=== PATIENT | female | born 1975 | race Caucasian/White ===

== ENCOUNTER 2016-07-10 11:04 | Inpatient (IN) | payer OTHER ==
[~2016-07-10] VITALS: Ht 158.8 cm; Wt 68.0 kg
[~2016-07-10 11:04] MED LIST: ALPRAZOLAM0.5 M4 PO; CIPROFLOXACIN500 M2 PO; ESCITALOPRAM OX10 MG PO; HYDROMORPHONE HC2 M1 PO; HYDROMORPHONE HC4 M1 PO; HYDROXYZINE HCL25 M2 PO; LEVAQUIN500 MG PO; LIDODERM1 EACH TOP; PHENAZOPYRIDIN200 M3 PO; PHENERGAN25 MG PO; PROMETHAZINE HC25 M3 PO; PROMETHAZINE25 M1 PO; SUBOXONE 2 MG-1 EACH SL; ZOFRAN ODT4 M1 SL
--- NOTE | 2016-07-10 11:34 | ED GI/GU/ABDOMINAL COMPLAINT ---
History of Present Illness General Chief Complaint: Abdominal Pain/Flank Pain Stated Complaint: RT FLANK PAIN Source: patient Exam Limitations: no limitations Allergies Coded Allergies: tramadol (From ULTRAM) (Severe, HIVES, SOB 07/07/16) vancomycin (From VANCOCIN) (Severe, SOB, FACIAL SWELLING 07/07/16) Iodinated Contrast Media - Oral and (Intermediate, HIVES WITH OR WITHOUT PREMEDICATION - CAN NOT TAKE PERIOD 07/10/16) Sulfa (Sulfonamide Antibiotics) (Intermediate, HIVES 07/07/16) morphine (Intermediate, HIVES, RASH 07/07/16) adhesive (RASH 07/10/16) oxycodone (RASH, SOB 07/10/16) Reconcile Medications Alprazolam 0.5 MG TABLET 1 TAB PO TIDPRN PRN ANXIETY (Reported) Buprenorphine HCl/Naloxone HCl (Suboxone 2 MG-0.5 MG Sl Film) 2 MG-0.5 MG FILM 1 STR SL 4 TIMES/DAY PRN CHRONIC PAIN (Reported) Diphenhydramine HCl (Benadryl) 25 MG CAPSULE 1 CAP PO PRN NASUEA/ITCHING ( Reported) Escitalopram Oxalate 10 MG TABLET 1 TAB PO QPM MENTAL HEALTH (Reported) Hydromorphone HCl 4 MG TABLET 1 TAB PO Q6-PRN PRN PAIN (Reported) Hydromorphone HCl 2 MG TABLET 1 TAB PO Q6-PRN PRN PAIN (Reported) Hydroxyzine HCl 25 MG TABLET 1 TAB PO TID PRN ITCHING (Reported) Infliximab (Remicade) (Unknown Strength) VIAL (Unknown Dose) IV Q6W CROHNS ( Reported) Lidocaine (Lidoderm) 5 % ADH..PATCH 1 PAT TOP DAILY PAIN (Reported) may wear up to 12 hours Mesalamine (Canasa) 1,000 MG SUPP.RECT 1 SUP RC PRN RECTAL (Reported) Multivitamin (Daily Value) 1 EACH TABLET 1 TAB PO DAILY SUPPLEMENT (Reported) Ondansetron (Zofran Odt) 4 MG TAB.RAPDIS 1 TAB SL TID nausea Phenazopyridine HCl 200 MG TABLET 1 TAB PO TID URINE (Reported) after food Promethazine HCl 25 MG TABLET 1 TAB PO Q6P PRN NAUSEA/VOMITING (Reported) Triage Note: 41 Y/O FEMALE C/O CONTINUED R FLANK PAIN, ONSET LAST WEEK. STATES SHE WAS EVAL'D IN ED 2 DAYS AGO AND TREATED FOR PRESUMED KIDNEY INFECTION - "THEY DIDNT SEE ANYTHING ON THE CT SCAN BUT IM ON CIPRO AND PYRIDIUM". PT REPORTS CONTINUED N/V AND INTERMITTENT FEVERS. DENIES HEMATURIA. AFEBRILE. Triage Nurses Notes Reviewed? yes ? N Is pt currently ? No HPI: THIS PATIENT IS A 41-YEAR-OLD FEMALE WITH A PAST MEDICAL HISTORY INCLUDING cROHN 'S DISEASE, psoas muscle abscess, recurrent UTIs, kidney infection who is status post hysterectomy and lysis of adhesions for endometriosis who presented to the emergency department today for evaluation of continued right lower back pain. The patient reported that approximately one week ago she was started on ciprofloxacin and Pyridium by her primary care physician for presumed urinary tract infection. The patient was experiencing difficulty emptying her bladder and urinary frequency. The patient reported that she has also been experiencing right sided lower back/flank pain which is nonradiating and she rates it a 6 out of 10. The pain is constant and worse with certain movements. The patient is on Remicade with a port for her Crohn's disease. The patient reported that she does get left lower quadrant pain when her Crohn's disease flares up. She reported that last night she started to experience left lower quadrant pain, but reported that this feels different. The pain is nonradiating and constant. The patient has been vomiting, "many times a day." She did report some blood in the vomitus, but reported that she has been scoped many times for this by her doctor and has been told that it is likely from irritation. The patient reported that her vomiting and nausea is worse with eating. She reported fevers as high as 103F and chills. The patient reported that she has been having diarrhea. She reported that 2 nights ago she had a bowel movement in her sleep without knowing it. She also reported that she has been having to wear pads due to urinary incontinence. The patient denied any chest pain, difficulty breathing. She denies any saddle paresthesia. She reported that her technology recruiter reviewed the prior CTs and that was done here in the emergency department and told her that it does not look like a flare of her Crohn's disease. There were no kidney stones seen on prior scan of the abdomen and pelvis. (CHONG JARRETT,CHE) Vital Signs & Intake/Output Vital Signs & Intake/Output Vital Signs Date Time Temp Pulse Resp B/P Pulse O2 O2 Flow FiO2 Ox Delivery Rate 07/11 0826 99.3 85 20 107/61 96 Room Air 07/11 0008 98.7 83 20 108/78 97 07/10 1609 99.8 112 20 127/78 95 Room Air 07/10 1409 98.9 07/10 1333 98.6 85 18 136/85 98 Room Air ED Intake and Output 07/11 0000 07/10 1200 Intake Total 340 Output Total 300 Balance 40 Intake, IV 100 Intake, Oral 240 Output, Urine 300 Patient 150 lb 150 lb Weight Past History Travel History Traveled to [place] past 21 day No Medical History Any Pertinent Medical History? see below for history Neurological: NONE EENT: NONE Cardiovascular: NONE Respiratory: asthma Gastrointestinal: Crohn's disease Hepatic: NONE Renal: hematuria x many years, uncertain etiology Musculoskeletal: NONE Psychiatric: NONE Endocrine: DM WHILE ON STREOIDS Blood Disorders: NONE Cancer(s): NONE DESK ASSISTANT/Reproductive: endometriosis, fibroid Surgical History Surgical History: 2 laparotomies due to crohn's PARTIAL HYSTERECTOMY Psychosocial History Who do you live with Family Services at Home None What is your primary language Grenadian Tobacco Use: Never used Family History Hx Contributory? No (CHE SCHWARZ PA-C) Review of Systems Review of Systems Constitutional: Reports: see HPI. EENTM: Reports: no symptoms. Respiratory: Reports: no symptoms. Cardiovascular: Reports: no symptoms. GI: Reports: see HPI. Genitourinary: Reports: see HPI. Musculoskeletal: Reports: see HPI. Skin: Reports: no symptoms. Neurological/Psychological: Reports: no symptoms. All Other Systems: Reviewed and Negative (CHE SCHWARZ PA-C) Physical Exam Physical Exam Gastrointestinal: normal bowel sounds, soft, no organomegaly, diffuse tenderness to palpation over the abdomen. No rebound or guarding. No McBurney's point tenderness. Negative Rovsing sign. Nondistended Comments: Well-developed well-nourished person in no acute distress HEENT: Normal EENT exam, head normocephalic, moist mucous membranes Pupils equally round and reactive to light. Neck: Supple. No lymphadenopathy Back: Normal gait. Positive right-sided CVA tenderness. Positive midline tenderness over the lumbar spine Cardiovascular: Tachycardic with a regular rhythm and no murmurs, rubs, or gallops Respiratory: Chest nontender. No respiratory distress. Breath sounds clear to auscultation bilaterally with no wheezes, rales or rhonchi Extremity: Normal and equal pulses Neuro: Alert oriented x3, cranial nerves II through XII grossly intact. Skin: No appreciable rash on exposed skin, skin is warm and dry. Psych: Mood and affect is normal Core Measures ACS in differential dx? No Severe Sepsis Present: No Septic Shock Present: No (CHONG JARRETT,CHE) Progress Differential Diagnosis: AMI, appendicitis, biliary colic, bowel obstruction, colon cancer, cholecystitis, diverticulitis, ectopic , endometritis, gastritis, hepatitis, ischemic bowel, inflamm bowel dis, intrauterine , kidney stone, ovarian cyst, ovarian torsion, PID/cervicitis, PUD/GERD, perforated viscous, threatened AB, UTI/pyelo Diagnostic Imaging: Viewed by Me: CT Scan. Discussed w/RAD: CT Scan. Radiology Impression: PATIENT: FRANCIA FLOWERS PRESENT AGE: 41 PATIENT ACCOUNT NO: [id number] : 77 LOCATION: [facility] ORDERING PHYSICIAN: CHE SCHWARZ PA-C SERVICE DATE: 07/10/16 EXAM TYPE: CAT - CT LUMB SPINE WO IV CONTRAST EXAMINATION: CT LUMBAR SPINE WITHOUT CONTRAST CLINICAL INFORMATION: Bowel and bladder incontinence. Assess for cauda equina. COMPARISON: CT scan of the abdomen and pelvis 07/07/2016. TECHNIQUE: Helical non -contrast CT images were obtained through the lumbar spine and 1.25 and 2.5 mm axial reconstructions were reviewed along with sagittal and coronal MPRs. DLP: 402.36 mGy-cm. FINDINGS: There is anatomic alignment of the vertebral bodies. There is loss of intervertebral disc height at the level of L5-S1. The vertebral bodies have normal height and contour and there are no compression fractures. Bone mineralization appears normal. There are degenerative changes at the sacroiliac joints. There are postoperative changes in the right lower abdomen. SPINAL LEVELS: T12-L1: The disc configuration is normal. The central canal and neural foramina are widely patent. The facet joints are normal. L1-L2: The disc configuration is normal. The central canal and neural foramina are widely patent. The facet joints are normal. L2-L3: The disc configuration is normal. The central canal and neural foramina are widely patent. The facet joints are normal. L3-L4: The disc configuration is normal. The central canal and neural foramina are widely patent. The facet joints are normal. L4-L5: There is mild facet arthropathy bilaterally. There is a broad-based posterior disc protrusion, extending into the inferior neural foramina bilaterally. There is no central stenosis. L5-S1: There is mild bilateral facet arthropathy. There is a central and left paracentral disc protrusion which compresses the thecal sac. There is impingement on the traversing S1 nerve roots bilaterally. There is no central stenosis. The neural foramina are patent. IMPRESSION: 1. There is a central and left paracentral disc protrusion compressing the thecal sac at L5-S1. There is impingement on the traversing S1 nerve roots bilaterally. 2. There is a broad- based posterior disc protrusion at L4-L5 extending into the inferior neural foramina bilaterally. There is no central stenosis. DICTATED BY: ANKIT MEJIA MD DATE/TIME DICTATED:07/10/161248 SEARCH STRATEGIST:ABELARDO DATE/TIME TRANSCRIBED:07/10/161248 CONFIDENTIAL, DO NOT COPY WITHOUT APPROPRIATE AUTHORIZATION. <Electronically signed in Other Vendor System> SIGNED BY: ANKIT MEIJA MD 07/10/16 1316 Initial ED EKG: none Comments: 07/10/2016 1:27:45 PM: I was at the patient's bedside for reevaluation. She reported that the Dilaudid and Phenergan were helping, however when she went to the CT scanner, the pain got really exacerbated. Will try Zofran with 1 mg IV of Dilaudid. (CHONG JARRETT,CHE) Plan of Care: Orders Procedure Date/time Status Regular Diet 07/11 D Active Regular Diet 07/11 B Complete CBC WITHOUT DIFFERENTIAL 07/11 06 Complete BASIC ELECTROLYTES PLUS BUN&CR 07/11 06 Complete Pain Treatment and Response 07/11 0440 Active PT Evaluate & Treat 07/11 UNK Active Regular Diet 07/10 D Complete Vital Signs 07/10 1809 Active Teach/Educate 07/10 1809 Active Nutritional Intake, Monitor 07/10 1809 Active Isolation 07/10 1809 Active Intake & Output 07/10 1809 Active Patient Care Conference 07/10 1809 Active Activity/Ambulation 07/10 1809 Active Pathway - chart 07/10 162 Active Pathway - chart 07/10 1620 Active House Staff 07/10 1620 Active Patient Data 07/10 1620 Active Code Status 07/10 1620 Active OXYGEN SETUP (GEN) 07/10 1451 Active Saline Lock 07/10 1451 Active Admit to inpatient 07/10 1451 Active Vital Signs 07/10 1451 Active Activity/Ambulation 07/10 1451 Active Code Status 07/10 1451 Complete Patient Data 07/10 1428 Active CULTURE,URINE 07/10 1337 Active Lab Add-on Test 07/10 UNK Active VTE Mechanical Prophylaxis 07/10 UNK Active PHYSICIAN CONSULT 07/10 UNK Active Current Medications Sig/Elise Start time Last Medication Dose Stop Time Status Admin Buprenorphine/ 1 TAB Q6 PRN 07/10 1730 AC Naloxone (Suboxone) Acetaminophen 650 MG Q6P PRN 07/10 1630 AC (Tylenol) Laboratory Tests 07/11/16 0520: Anion Gap 9, Estimated GFR > 60, BUN/Creatinine Ratio 12.5, CBC w Diff NO MAN DIFF REQ, RBC 3.39 L, MCV 91.6, MCH 31.0, RDW 13.0, MPV 8.7, Gran % 56.0, Lymphocytes % 29.4, Monocytes % 9.8 H, Eosinophils % 4.1, Basophils % 0.7, Absolute Granulocytes 5.6, Absolute Lymphocytes 2.9, Absolute Monocytes 1.0 H, Absolute Eosinophils 0.4, Absolute Basophils 0.1, PUBS MCHC 33.9 07/10/16 1337: Urine Color YEL, Urine Clarity CLEAR, Urine pH 7.5, Ur Specific [place] 1.010, Urine Protein NEG, Urine Ketones NEG, Urine Nitrite NEG, Urine Bilirubin NEG, Urine Urobilinogen 0.2, Ur Leukocyte Esterase NEG, Ur Microscopic SEDIMENT EXAMINED, Urine RBC RARE, Ur Epithelial Cells FEW, Urine Hemoglobin SMALL H, Urine Glucose NEG, Urine Test NEGATIVE Microbiology 07/10 133 URINE ROUT: Urine Culture - RES Departure Departure Disposition: STILL A PATIENT Condition: Stable Clinical Impression Primary Impression: Intractable abdominal pain Secondary Impressions: Diarrhea Qualifiers: Diarrhea type: presumed infectious Qualified Code: A09 - Infectious gastroenteritis and colitis, unspecified Intermittent fever Referrals: JULIOCESAR VASQUEZ APRN (PCP/Family) Referred to [facility] as new patient No Departure Forms: Customer Survey General Discharge Information Admission Note Spoke With: LEAH MCDONOUGH MD Documentation of Exam: Documentation of any treatments & extenuating circumstances including Concerns Regarding Discharge (functional status, medication knowledge or non-compliance, living conditions, etc.) that warrant an admission rather than observation: [ This patient is a 41-year-old female with a history of Crohn's disease, psoas muscle access, colectomy, C. difficile, and kidney infection who presented to the emergency department today for evaluation of intractable right flank pain and left lower quadrant pain. This patient has been intermittently febrile at home up to 103F. Perfuse diarrhea and vomiting. This patient will need to be admitted to the emergency department for trend labs, IV fluids, pain management, gastroenterology consult, possible colonoscopy, possible barium enema, follow-up stool cultures, and follow-up blood cultures. Based on this patient's extensive past medical history and clinical presentation, she is a poor candidate for outpatient treatment. Premature discharge could prove medically harmful.] (CHONG JARRETT,CHE) PA/DUSTLESS OPERATOR Co-Sign Statement Statement: ED Attending supervision documentation- x I saw and evaluated the patient. I have also reviewed all the pertinent lab results and diagnostic results. I agree with the findings and the plan of care as documented in the PA's/DUSTLESS OPERATOR's documentation. [] I have reviewed the ED Record and agree with the PA's/DUSTLESS OPERATOR's documentation. [] Additions or exceptions (if any) to the PAs/DUSTLESS OPERATOR's note and plan are summarized below: [] (EMILY BEEBE,EM)
[2016-07-10 12:06] LABS: ABSOLUTE BASOPHIL COUNT 0 /CUMM (0.0-0.2); ABSOLUTE EOSINOPHIL COUNT 0.3 /CUMM (0.0-0.7); ABSOLUTE GRANULOCYTE CT 6.1 /CUMM (1.4-6.5); ABSOLUTE LYMPH COUNT 1.9 /CUMM (1.2-3.4); ABSOLUTE MONOCYTE COUNT 0.8 /CUMM (0.10-0.60); BASOPHIL % 0.4 % (0.0-2.0); EOSINOPHIL % 2.8 % (0-5); GRANULOCYTE % 66.7 % (42.2-75.2); HEMATOCRIT 32.9 % (37-47); MEAN CORPUSCULAR HGB CONC 34.6 G/DL (33.0-37.0); MEAN CORPUSCULAR VOLUME 89.7 FL (81.0-99.0); MEAN PLATELET VOLUME 8.8 FL (7.4-10.4); PLATELET COUNT 267 /CUMM (130-400); RED BLOOD CELL CT 3.67 /CUMM (4.20-5.40); WHITE BLOOD CELL COUNT 9.1 /CUMM (4.8-10.8)
--- NOTE | 2016-07-10 13:16 | CT SCAN REPORT ---
EXAMINATION: CT LUMBAR SPINE WITHOUT CONTRAST CLINICAL INFORMATION: Bowel and bladder incontinence. Assess for cauda equina. COMPARISON: CT scan of the abdomen and pelvis 07/07/2016. TECHNIQUE: Helical non-contrast CT images were obtained through the lumbar spine and 1.25 and 2.5 mm axial reconstructions were reviewed along with sagittal and coronal MPRs. DLP: 402.36 mGy-cm. FINDINGS: There is anatomic alignment of the vertebral bodies. There is loss of intervertebral disc height at the level of L5-S1. The vertebral bodies have normal height and contour and there are no compression fractures. Bone mineralization appears normal. There are degenerative changes at the sacroiliac joints. There are postoperative changes in the right lower abdomen. SPINAL LEVELS: T12-L1: The disc configuration is normal. The central canal and neural foramina are widely patent. The facet joints are normal. L1-L2: The disc configuration is normal. The central canal and neural foramina are widely patent. The facet joints are normal. L2-L3: The disc configuration is normal. The central canal and neural foramina are widely patent. The facet joints are normal. L3-L4: The disc configuration is normal. The central canal and neural foramina are widely patent. The facet joints are normal. L4-L5: There is mild facet arthropathy bilaterally. There is a broad-based posterior disc protrusion, extending into the inferior neural foramina bilaterally. There is no central stenosis. L5-S1: There is mild bilateral facet arthropathy. There is a central and left paracentral disc protrusion which compresses the thecal sac. There is impingement on the traversing S1 nerve roots bilaterally. There is no central stenosis. The neural foramina are patent. IMPRESSION: 1. There is a central and left paracentral disc protrusion compressing the thecal sac at L5-S1. There is impingement on the traversing S1 nerve roots bilaterally. 2. There is a broad-based posterior disc protrusion at L4-L5 extending into the inferior neural foramina bilaterally. There is no central stenosis.
[2016-07-10] MEDS ORDERED: BENADRYL25 MG PO (16:09)
[2016-07-10] MEDS ORDERED: CANASA1000 M1 RC (16:22)
[2016-07-10] MEDS ORDERED: REMICADE100 MG IV (16:22)
[2016-07-10] MEDS ORDERED: DAILY VALUE1 EACH PO (16:23)
--- NOTE | 2016-07-10 16:52 | History & Physical ---
EMILY BEEBE,[facility] 07/10/16 3765: General Information and HPI MD Statement: I have seen and personally examined FRANCIA FLOWERS and documented this H&P. The patient is a 41 year old F who presented with a patient stated chief complaint of right lower back pain. Source of Information: patient Exam Limitations: no limitations History of Present Illness: This is a 41-year-old female with past medical history of Crohn's disease( multiple flares currently on Remicade infusions every 6 weeks, last one was in June 18) with 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 Patient reported that she has history of recurrent UTIs, around Thanksgiving she was having some urinary frequency and burning for which her PCP started her on nitrofurantoin for 3 days after which gave her some relief of her symptoms but was soon followed by worsening of urinary burning, frequency along with right sided back/flank pain, nausea, vomiting and fever, for which she was seen by her PCP last week, urinalysis as per patient was positive for UTI with cultures were negative, she was was prescribed pyridium and ciprofloxacin which she completed a seven-day course without significant improvement in her symptoms, today are back/flank pain nausea and vomiting and fever(MAXIMUM TEMPERATURE of 103 along with chills) worsened to the point that she has to come to the ER for further evaluation. She also reports history of diarrhea for the past 2 days, watery, started 2 days before when she woke up finding herself soaked in diarrhea, ever since she had She has baseline incontinence for which sometimes she has to use pads but recently has noticed that she was not able to urinate. 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 She follows Alberto vasquez APRN as his primary care. She does not smoke, abuse alcohol abuse, denies any drug abuse. She is on disability, lives with her mom, able to do her daily chores without difficulty. Allergies/Medications Allergies: Coded Allergies: tramadol (From ULTRAM) (Severe, HIVES, SOB 07/07/16) vancomycin (From VANCOCIN) (Severe, SOB, FACIAL SWELLING 07/07/16) Iodinated Contrast Media - Oral and (Intermediate, HIVES WITH OR WITHOUT PREMEDICATION - CAN NOT TAKE PERIOD 07/10/16) Sulfa (Sulfonamide Antibiotics) (Intermediate, HIVES 07/07/16) morphine (Intermediate, HIVES, RASH 07/07/16) adhesive (RASH 07/10/16) oxycodone (RASH, SOB 07/10/16) Home Med list Alprazolam 0.5 MG TABLET 1 TAB PO TIDPRN PRN ANXIETY (Reported) Buprenorphine HCl/Naloxone HCl (Suboxone 2 MG-0.5 MG Sl Film) 2 MG-0.5 MG FILM 1 STR SL 4 TIMES/DAY PRN CHRONIC PAIN (Reported) Diphenhydramine HCl (Benadryl) 25 MG CAPSULE 1 CAP PO PRN NASUEA/ITCHING ( Reported) Escitalopram Oxalate 10 MG TABLET 1 TAB PO QPM MENTAL HEALTH (Reported) Hydromorphone HCl 4 MG TABLET 1 TAB PO Q6-PRN PRN PAIN (Reported) Hydromorphone HCl 2 MG TABLET 1 TAB PO Q6-PRN PRN PAIN (Reported) Hydroxyzine HCl 25 MG TABLET 1 TAB PO TID PRN ITCHING (Reported) Infliximab (Remicade) (Unknown Strength) VIAL (Unknown Dose) IV Q6W CROHNS ( Reported) Lidocaine (Lidoderm) 5 % ADH..PATCH 1 PAT TOP DAILY PAIN (Reported) may wear up to 12 hours Mesalamine (Canasa) 1,000 MG SUPP.RECT 1 SUP RC PRN RECTAL (Reported) Multivitamin (Daily Value) 1 EACH TABLET 1 TAB PO DAILY SUPPLEMENT (Reported) Ondansetron (Zofran Odt) 4 MG TAB.RAPDIS 1 TAB SL TID nausea Phenazopyridine HCl 200 MG TABLET 1 TAB PO TID URINE (Reported) after food Promethazine HCl 25 MG TABLET 1 TAB PO Q6P PRN NAUSEA/VOMITING (Reported) Compliance With Home Meds: GOOD Past History Travel History Traveled to [place] past 21 day No Medical History Neurological: NONE EENT: NONE Cardiovascular: NONE Respiratory: asthma Gastrointestinal: Crohn's disease Hepatic: NONE Renal: hematuria x many years, uncertain etiology Musculoskeletal: NONE Psychiatric: NONE Endocrine: DM WHILE ON STREOIDS Blood Disorders: NONE Cancer(s): NONE 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 Home Who Do You Live With? parent Services at Home: None Primary Language: South African Smoking Status: Never Smoked ETOH Use: occasional use Illicit Drug Use: denies illicit drug use Functional Ability ADLs Independent: dressing, eating, toileting, bathing. Ambulation: independent IADLs Independent: shopping, housework, finances, food prep, telephone, transportation , medication admin. Review of Systems Review of Systems Constitutional: Reports: see HPI. Exam & Diagnostic Data Last 24 Hrs of Vital Signs/I&O Vital Signs Date Time Temp Pulse Resp B/P Pulse O2 O2 Flow FiO2 Ox Delivery Rate 07/10 1609 99.8 112 20 127/78 95 Room Air 07/10 1409 98.9 07/10 1333 98.6 85 18 136/85 98 Room Air 07/10 1117 98.2 107 18 141/97 97 Room Air Intake & Output 07/10 1600 07/10 0800 07/10 0000 Intake Total Output Total Balance Patient 68.039 kg Weight Physical Exam General Appearance Alert, Oriented X3, Cooperative, Mild Distress Cardiovascular Regular Rate, Normal S1, Normal S2, No Murmurs Lungs Clear to Auscultation, Normal Air Movement Abdomen Normal Bowel Sounds, Soft, TENDERNESS ESPECIALLY IN THE RIGHT LOWER QQUADRANT Extremities No Clubbing, No Cyanosis, No Edema Last 24 Hrs of Labs/Junaid: Laboratory Tests 07/10/16 1337: Urine Color YEL, Urine Clarity CLEAR, Urine pH 7.5, Ur Specific Ettrick 1.010, Urine Protein NEG, Urine Ketones NEG, Urine Nitrite NEG, Urine Bilirubin NEG, Urine Urobilinogen 0.2, Ur Leukocyte Esterase NEG, Ur Microscopic SEDIMENT EXAMINED, Urine RBC RARE, Ur Epithelial Cells FEW, Urine Hemoglobin SMALL H, Urine Glucose NEG, Urine Test NEGATIVE 07/10/16 1200: Anion Gap 11, Estimated GFR > 60, BUN/Creatinine Ratio 15.0, Glucose 101 H, Lactic Acid 1.6, Calcium 9.2, Total Bilirubin 1.0, AST 18, ALT 18, Alkaline Phosphatase 67, Total Protein 7.7, Albumin 4.0, Globulin 3.7, Albumin/Globulin Ratio 1.1, Amylase 44, Lipase 123, CBC w Diff NO MAN DIFF REQ, RBC 3.67 L, MCV 89.7, MCH 31.0, RDW 13.0, MPV 8.8, Gran % 66.7, Lymphocytes % 21.4, Monocytes % 8.7, Eosinophils % 2.8, Basophils % 0.4, Absolute Granulocytes 6.1, Absolute Lymphocytes 1.9, Absolute Monocytes 0.8 H, Absolute Eosinophils 0.3, Absolute Basophils 0, PUBS MCHC 34.6 Microbiology 07/10 1337 URINE ROUT: Urine Culture - RECD 07/10 1209 STOOL: Clostridium difficile Toxin A & B - ORD 07/10 1209 STOOL: Stool Culture - ORD Assessment/Plan Assessment: This is a 41-year-old female with past medical history of Crohn's disease( multiple flares currently on Remicade infusions every 6 weeks, last one was in June 18) , recurrent UTIs, endometriosis complicated by additions for which she underwent adhesion lysis and hysterectomy. Her vital signs on admission were temperature 98.2, pulse 107, respiratory rate 18, blood pressure 141/97, pulse ox 97 on room air. Admission labs were WBC count 9.1, hemoglobin 11.4, hematocrit 32.9, platelet count 267, sodium 138, potassium 4.3, BUN 12, creatinine 0.8, normal LFTs, amylase and lipase. CT lumbar spine showed central and left paracentral disc protrusion compressing the thecal sac at L5 and S1 and impingement on the traversing S1 nerve roots bilaterally. Will admit the patient and monitor for the following conditions: Right sided abdomen/back pain: Etiology at the moment unclear, likely due to underlying Crohn's disease versus C. difficile colitis(patient has history of recent recurrent antibiotic use) versus nephrolithiasis, cystitis, versus chronic pain syndrome C. difficile toxin/stool culture GI consultation please will follow-up recommendations Pain management with Dilaudid and Suboxone IV Phenergan for nausea and vomiting as needed Back pain : CT scan showed evidence of central and left paracentral disc protrusion compressing the thecal sac at L5 and S1 and impingement on the traversing S1 nerve roots bilaterally. Orthopedic consultation please will follow recommendations Will continue regular diet DVT prophylaxis with Lovenox Patient is full code As Ranked By This Provider Problem List: 1. Intermittent fever 2. Intractable abdominal pain 3. Nausea & vomiting 4. Back pain Core Measures/Miscellaneous Acute Coronary Syndrome ACS Diagnosis: No Cerebrovascular Accident CVA/TIA Diagnosis: No Congestive Heart Failure CHF Diagnosis: No Venous Thromboembolism VTE Risk Factors: Acute medical illness, Age > 40 VTE Prophylaxis Ordered Inpt: Pharm- Lovenox No Mech VTE prophylaxis d/t: No contraindications No VTE Pharm Prophylaxis d/t: No contraindications VTE Diagnosis: No VTE Type: NONE VTE Confirmed by (Test): NONE Severe Sepsis Severe Sepsis Present: No Septic Shock Septic Shock Present: No Miscellaneous Documentation Attending Case Discussed With: LEAH MCDONOUGH MD Primary Care Physician: JULIOCESAR VASQUEZ APRN Patient sees these Specialists . Level of Patient Care: General Medicine JODY DECKER 07/10/16 1754: Resident Review Statement Resident Statement: examined this patient, discussed with internet manager, agreed with internet manager Other Findings: Patient is 41 years old female with complicated past medical history significant for Crohn's disease currently on Remicade infusion every 6 weeks last was on June 18, history of soreness abscess, history of recurrent UTIs, history of kidney stones status post stent placement and lithotripsy, history of endometriosis status post hysterectomy and multiple fistulas status post adhesion lysis, arthritis and recent UTI treated with ciprofloxacin came to emergency room with chief complaint of right-sided lower abdomen and back.. She also admits for having diarrhea for a few days and bowel incontinence ones and urinary retention recently. She is following director financial services in [place]. She gave history of fever the last few days with MAXIMUM TEMPERATURE of 103 and she spiked 101 this morning at home. She denied cough, headache, chest pain but admits for having nausea, vomiting, diarrhea and recent urinary incontinence/retention. She visited ER on July 07 with right-sided flank pain where her CT abdomen was done and was sent home to continue on her oral antibiotics by her PCP. Her vital signs on admission were temperature 98.2, pulse 107, respiratory rate 18, blood pressure 141/97, pulse ox 97 on room air. Admission labs were WBC count 9.1, hemoglobin 11.4, hematocrit 32.9, platelet count 267, sodium 138, potassium 4.3, BUN 12, creatinine 0.8, normal LFTs, amylase and lipase. CT lumbar spine showed central and left paracentral disc protrusion compressing the thecal sac at L5 and S1 and impingement on the traversing S1 nerve roots bilaterally. On physical examination She is alert and oriented 3 Head atraumatic Neck supple Chest clear to auscultate having intact Edmond catheter Heart S1-S2 audible with no added sounds Abdomen generalized tenderness with normal bowel sounds no organomegaly Costovertebral angle tenderness positive but no tenderness on lumbar or sacral vertebrae region. No restricted joint movement on hip or knees No edema or cyanosis on extremities No saddle anesthesia Assessment and plan 41 years old female with a very complicated past medical and surgical history with recent UTI treated with Cipro currently came with right-sided abdominal and back pain with loose stool concerning for C. difficile. CAT scan findings for central left paracentral disc protrusion compressing thecal sac at L5 and S1 were concerning but cauda equina syndrome was ruled out. We will admit patient on general medical floor and will take care for the following problems Problem #1 right lower abdomen and back pain could be due to underlying Crohn's/ chronic pain syndrome/C. difficile colitis/nephrolithiasis Vital signs every shift GI consultation We'll continue her home medications for pain IV Phenergan for nausea and vomiting as needed We'll send stool cultures and C. difficile Problem #2 recent diarrhea could be viral versus C. difficile with history of antibiotic use recently Will follow C. difficile culture Problem #3 disc protrusion compressing L5-S1 Will request orthopedic consultation Continue her home pain medications Problem #4 history of chronic pain Will continue her home medications Regular diet Pharmacological DVT prophylaxis Patient is full code GINGER HONG MD 07/10/16 2310: Attending MD Review Statement Attending Statement Attending MD Statement: examined this patient, discuss w/resident/PA/SEASONAL TAX PREPARER, agreed w/resident/PA/SEASONAL TAX PREPARER, reviewed EMR data (avail), discussed with nursing, amended to note Attending Assessment/Plan: Patient seen and examined. Extensive past medical history noted. She reports back pain radiating to the abdomen going on for the past 2 weeks. She reports recent outpatient antibiotic therapy by her primary care physician for abnormal UA with negative urine cultures. As symptoms persisted she came to the emergency room 2 days ago where she had a CT abdomen done that showed nonspecific mesenteric inflammation. She was discharged home on analgesic therapy will reconsider emergency room today with persistent pain. This time around lumbosacral CT was obtained that showed significant degenerative joint disease with lumbosacral disc protrusion and S1 with impingement. She gives a history of diarrhea recently but states that this has resolved. She she admits to some nausea vomiting at home. Patient reports fever at home however she has been afebrile here with a normal white count. On examination she was seasonal comfortably in bed and not in any acute distress. She is hemodynamically stable and not tachycardic. She has no focal deficits on examination. Abdomen is soft, I was not able to receive any tenderness on examination. Bowel sounds are normal. She did complain of right flank pain on examination but no midline tenderness. Problems: 1. Back pain. 2. Abdominal pain 3. Crohn's disease Plan: -Chronicity of findings of her lumbosacral CT is unclear. This may be contributing to her acute pain. She currently reports pain relief only with IV Dilaudid. We'll continue on his regimen. She has been started on Lidoderm patch as well. Recommend nonpharmacological therapy as well such as heating pad. Physical therapy evaluation. -Consultation with the orthopedic surgery service. -Significance of the Abdominal CT findings is uncertain at present. She reports that her diarrhea has resolved. She denies any bloody stools. She complains of nonspecific abdominal pain. Recommend follow-up by the gastroenterology service. -Patient history prophylaxis with heparin subcutaneous.
--- NOTE | 2016-07-10 23:09 | Admission Certification ---
Admission Certification Certification Statement - As attending physician, I certify that at the time of - admission, based on clinical presentation, severity of - symptoms, need for further diagnostic testing and - therapeutic interventions, and risk of adverse outcomes - without in-hospital treatment, in my clinical assessment, - this patient requires an acute hospital stay for a minimum - of two nights or longer. I have also considered psychsocial - factors such as support system, advanced age, financial - issues, cognitive issues, and failed out-patient treatments, - past re-admission history, safety of patient, and lack of - compliance as applicable. Specific rationale supporting this admission is: Patient requires pain control with intravenous analgesia
[2016-07-11 00:08] VITALS: BP 108/78
[2016-07-11 05:34] LABS: ABSOLUTE BASOPHIL COUNT 0.1 /CUMM (0.0-0.2); ABSOLUTE EOSINOPHIL COUNT 0.4 /CUMM (0.0-0.7); ABSOLUTE GRANULOCYTE CT 5.6 /CUMM (1.4-6.5); ABSOLUTE LYMPH COUNT 2.9 /CUMM (1.2-3.4); BASOPHIL % 0.7 % (0.0-2.0); EOSINOPHIL % 4.1 % (0-5); HEMATOCRIT 31.1 % (37-47); MEAN CORPUSCULAR HGB CONC 33.9 G/DL (33.0-37.0); MEAN CORPUSCULAR VOLUME 91.6 FL (81.0-99.0); MEAN PLATELET VOLUME 8.7 FL (7.4-10.4); PLATELET COUNT 248 /CUMM (130-400); RED BLOOD CELL CT 3.39 /CUMM (4.20-5.40)
[2016-07-11 08:26] VITALS: BP 107/61
--- NOTE | 2016-07-11 08:41 | PN- Housestaff ---
KAYLA BEEBE,[facility] [place]11[place]16 0840: Subjective Follow-up For: Intractable abdominal pain Nausea and vomiting Back pain Possible Crohn's flare Subjective: No acute events overnight. Patient seen and examined this morning. She remains afebrile. She is complaining of severe R-sided abdomen and back/flank pain, nausea, diarrhea and chills. She reports throwing up her pain medications and is requesting IV narcotics although there are no observed episodes of emesis by nursing staff. She reports that Tigan does not provide adequate relief from her nausea/vomiting and is requesting IV Benadryl, as it is the only medication that really works. Review of Systems Constitutional: Reports: chills. Denies: fever. Cardiovascular: Denies: chest pain. Respiratory: Denies: cough, short of breath. Gastrointestinal: Reports: abdominal pain, diarrhea, nausea, vomiting. Objective Last 24 Hrs of Vital Signs/I&O Vital Signs Date Time Temp Pulse Resp B/P Pulse O2 O2 Flow FiO2 Ox Delivery Rate 07/11 1603 98.2 89 18 100/64 97 07/11 0826 99.3 85 20 107/61 96 Room Air 07/11 0008 98.7 83 20 108/78 97 Intake & Output 07/11 1600 07/11 0800 07/11 0000 Intake Total 1080 270 340 Output Total 700 400 300 Balance 380 -130 40 Intake, IV 560 150 100 Intake, Oral 520 120 240 Number 0 Bowel Movements Output, Urine 700 400 300 Patient 68.039 kg Weight Physical Exam General Appearance: Alert, Oriented X3, No Acute Distress HEENT: Mucous Membr. moist/pink Cardiovascular: Regular Rate, Normal S1, Normal S2, No Murmurs, Gallops, Rubs Lungs: Clear to Auscultation, Normal Air Movement Abdomen: Soft, TTP Most Pronounced at RLQ, R CVA Tenderness Extremities: No Clubbing, No Cyanosis, No Edema Current Medications: Current Medications Sig/Elise Start time Last Medication Dose Route Stop Time Status Admin Acetaminophen 650 MG Q6P PRN 07/10 1630 AC PO Alprazolam 0.5 MG TID PRN 07/10 1730 AC 07/10 PO 07/17 1729 2303 Buprenorphine/ 1 TAB Q6 PRN 07/10 1730 AC Naloxone SL Dicyclomine HCl 20 MG 4 TIMES/DAY PRN 07/11 1300 AC PO Diphenhydramine HCl 25 MG ONCE ONE 07/11 0630 DC 07/11 IV 07/11 0631 0649 Diphenhydramine HCl 25 MG ONCE ONE 07/10 2230 DC 07/10 IV 07/10 2231 2304 Enoxaparin Sodium 40 MG DAILY 07/10 1618 AC 07/11 SC 0914 Escitalopram Oxalate 10 MG QPM 07/10 2200 AC 07/10 PO 2307 Hydromorphone HCl 0.4 MG ONCE ONE 07/11 1530 DC 07/11 IV 07/11 1531 1651 Hydromorphone HCl 0.4 MG ONCE ONE 07/11 0630 DC 07/11 IV 07/11 0631 0648 Hydromorphone HCl 0.6 MG ONCE ONE 07/11 0115 DC 07/11 IV 07/11 0116 0128 Hydromorphone HCl 2 MG Q6P PRN 07/10 1745 AC 07/11 PO 0919 Lidocaine 1 PAT Q24H PRN 07/10 1630 AC 07/10 EXT 1715 Magnesium Oxide 400 MG ONE ONE 07/11 1600 DC PO 07/11 1601 Omeprazole 40 MG DAILY AC 07/11 1259 AC 07/11 PO 1656 Potassium Chloride 10 MEQ ONCE ONE 07/11 1315 DC 07/11 PO 07/11 1316 1651 Promethazine HCl 25 MG Q6P PRN 07/10 1745 AC 07/11 PO 07/17 1744 1645 Sodium Chloride 1,000 ML Q13H 07/11 0445 AC 07/11 IV 2004 Trimethobenzamide HCl 200 MG ONCE ONE 07/11 1800 DC IM 07/11 1801 Last 24 Hrs of Lab/Junaid Results Last 24 Hrs of Labs/Mics: Laboratory Tests 07/11/16 0520: Anion Gap 9, Estimated GFR > 60, BUN/Creatinine Ratio 12.5, Magnesium 1.7, CBC w Diff NO MAN DIFF REQ, RBC 3.39 L, MCV 91.6, MCH 31.0, RDW 13.0, MPV 8.7, Gran % 56.0, Lymphocytes % 29.4, Monocytes % 9.8 H, Eosinophils % 4.1, Basophils % 0.7 , Absolute Granulocytes 5.6, Absolute Lymphocytes 2.9, Absolute Monocytes 1.0 H , Absolute Eosinophils 0.4, Absolute Basophils 0.1, PUBS MCHC 33.9 Assessment/Plan Assessment: This is a 41-year-old female with past medical history of Crohn's disease( multiple flares currently on Remicade infusions every 6 weeks, last one was in June 18) , recurrent UTIs, endometriosis complicated by additions for which she underwent adhesion lysis and hysterectomy. Her vital signs on admission were temperature 98.2, pulse 107, respiratory rate 18, blood pressure 141/97, pulse ox 97 on room air. Admission labs were WBC count 9.1, hemoglobin 11.4, hematocrit 32.9, platelet count 267, sodium 138, potassium 4.3, BUN 12, creatinine 0.8, normal LFTs, amylase and lipase. CT lumbar spine showed central and left paracentral disc protrusion compressing the thecal sac at L5 and S1 and impingement on the traversing S1 nerve roots bilaterally. Will admit the patient and monitor for the following conditions: Right sided abdomen/back pain: Etiology at the moment unclear, likely due to underlying Crohn's disease versus C. difficile colitis(patient has history of recent recurrent antibiotic use) versus nephrolithiasis, cystitis, versus chronic pain syndrome C. difficile toxin/stool culture Pain management with Dilaudid and Suboxone IV Phenergan for nausea and vomiting as needed * S/p GI consult. Per their eval, although Crohn's flare is a possibility her symptoms are atypical of her prior flares. Small bowel obstruction secondary to adhesions from her hysterectomy is also a possibility but unlikely given the atypical location of the pain and lack of obstructive symptoms. Vomiting is most likely related to the narcotics although it could be from underlying GERD or a possible Crohn's flare. * If patient develops diarrhea, check stool for C. diff, cultures, ova & parasites and lactoferrin. * Anti-spasmodic bentyl 20 mg QID PRN started for abdominal pain. * Prilosec 40 mg PO QD started for possible GERD. * Per GI, patient can be discharged home with outpatient GI follow-up within a few days if she is able to tolerate diet and her pain is well-controlled. At that time, an endoscopic work-up can be pursued to look for more objective evidence of a Crohn's flare which may benefit from steroid therapy. Back pain : CT scan showed evidence of central and left paracentral disc protrusion compressing the thecal sac at L5 and S1 and impingement on the traversing S1 nerve roots bilaterally. * S/p ortho consult. Per their recs, the CT scan finding is incidental and no intervention is warranted at this time. If she develops any lower extremity symptoms an MRI can be considered for further evaluation. Will continue regular diet DVT prophylaxis with Lovenox Patient is full code Problem List: 1. Nausea & vomiting 2. Intractable abdominal pain 3. Diarrhea 4. Crohns disease Pain Ratin Pain Location: R-sided abdomen and back/flank Pain Goal: Pain 7 or less Pain Plan: Bentyl 20 mg PO QID PRN for abdominal pain Dilaudid 2 mg PO Q6H PRN for severe pain (scale 7-10) Tylenol 650 mg PO Q6H PRN for mild pain (scale 1-3) Tomorrow's Labs & Rationales: CBC to monitor H/H in the setting of anemia BMP and Mg to monitor lytes and kidney function in the setting of nausea/ vomiting EMILY BEEBE,[facility] 07/11/16 1147: Attending MD Review Statement Attending Statement Attending MD Statement: examined this patient, discuss w/resident/PA/SALESPERSON HOSIERY, agreed w/resident/PA/SALESPERSON HOSIERY, reviewed EMR data (avail), reviewed images Attending Assessment/Plan: 41-year-old young female with a chronic history of Crohn's disease on Remicade infusion and is persistently following up with GI, chronic back pain is being admitted to the floor with back pain and left lower abdominal pain. Patient was examined this morning on the bedside and is now complaining that the pain has been localized to left lower quadrant of the abdomen and was persistently complaining of pain.in Merrick stable and she was tender in the left lower quadrant. Labs were reviewed and there is a drop off 1 g of hemoglobin from yesterday which could be due to dilution. Her pain is being controlled with IV Dilaudid. She is also taking Suboxone. Spoke to the GI this morning and does not suggest and recommend any acute intervention from their side as the patient is already on IV Remicade, patient should be controlled and sent back to his primary GI doctor. Given her CT spine findings, would also get her evaluated by the orthopedic surgeon. Meanwhile, would control her pain and would follow on further recommendations from the orthopedic surgeon.
--- NOTE | 2016-07-11 11:54 | Cons- Gastroenterology ---
General Information and HPI Consulting Request Date of Consult: 07/11/16 Requested By: LEAH MCDONOUGH MD Reason for Consult: Abdominal pain, diarrhea, crohns disease Source of Information: patient Exam Limitations: no limitations History of Present Illness: Ms. Carter is a 41 year old female with a history of crohns disese for which she is currently on remicade who reported to last night with complaints of worsening right sided back/flank pain. She notes that she has been having sympoms for the past week and that she recently finished a course of cipro for a UTI. She felt her symptoms may have been from a worsening UTI or a kidney stone , but she went to the ER on 07/07 at which point she had a negative UA and a ct scan was negative for nephrolithiasis. The pain is in her right flank and is stabbing in quality. It doesn't radiate down her legs or to her abdomen, but she has also been having LLQ pain that she notes is typical for her crohns flares. She reports having fevers at home upto 103F, but she has only been having low grade temps here. She also notes that she has recently started having non-bloody diarrhea and she is usually constipated. She reports having several loose stools yesterday, but she hasn't had much diarrhea since she has been admitted and she has not been able to submit a stool sample yet. She had been taking suboxone at home for the pain and here she has been getting dilaudid which she notes has led to nausea and vomiting making it difficult for her to tolerate PO intake. She also notes some reflux symptoms and heartburn which she attributes to the vomiting. On admission she had a ct scan of her back which showed a L5- S1 herniated disk with nerve impingement. She has been afebrile and hemodynamically stable since admission. Of note, she has been on remicade for her crohns disease for the past 2 years which she notes has been controlling her disease well and she had her last shot on the first of this month and is due again in about 2 weeks. Allergies/Medications Allergies: Coded Allergies: tramadol (From ULTRAM) (Severe, HIVES, SOB 07/07/16) vancomycin (From VANCOCIN) (Severe, SOB, FACIAL SWELLING 07/07/16) Iodinated Contrast Media - Oral and (Intermediate, HIVES WITH OR WITHOUT PREMEDICATION - CAN NOT TAKE PERIOD 07/10/16) Sulfa (Sulfonamide Antibiotics) (Intermediate, HIVES 07/07/16) morphine (Intermediate, HIVES, RASH 07/07/16) adhesive (RASH 07/10/16) oxycodone (RASH, SOB 07/10/16) Home Med List: Alprazolam 0.5 MG TABLET 1 TAB PO TIDPRN PRN ANXIETY (Reported) Buprenorphine HCl/Naloxone HCl (Suboxone 2 MG-0.5 MG Sl Film) 2 MG-0.5 MG FILM 1 STR SL 4 TIMES/DAY PRN CHRONIC PAIN (Reported) Diphenhydramine HCl (Benadryl) 25 MG CAPSULE 1 CAP PO PRN NASUEA/ITCHING ( Reported) Escitalopram Oxalate 10 MG TABLET 1 TAB PO QPM MENTAL HEALTH (Reported) Hydromorphone HCl 4 MG TABLET 1 TAB PO Q6-PRN PRN PAIN (Reported) Hydromorphone HCl 2 MG TABLET 1 TAB PO Q6-PRN PRN PAIN (Reported) Hydroxyzine HCl 25 MG TABLET 1 TAB PO TID PRN ITCHING (Reported) Infliximab (Remicade) (Unknown Strength) VIAL (Unknown Dose) IV Q6W CROHNS ( Reported) Lidocaine (Lidoderm) 5 % ADH..PATCH 1 PAT TOP DAILY PAIN (Reported) may wear up to 12 hours Mesalamine (Canasa) 1,000 MG SUPP.RECT 1 SUP RC PRN RECTAL (Reported) Multivitamin (Daily Value) 1 EACH TABLET 1 TAB PO DAILY SUPPLEMENT (Reported) Ondansetron (Zofran Odt) 4 MG TAB.RAPDIS 1 TAB SL TID nausea Phenazopyridine HCl 200 MG TABLET 1 TAB PO TID URINE (Reported) after food Promethazine HCl 25 MG TABLET 1 TAB PO Q6P PRN NAUSEA/VOMITING (Reported) Current Medications: Current Medications Sig/Elise Start time Last Medication Dose Route Stop Time Status Admin Acetaminophen 650 MG Q6P PRN 07/10 1630 AC PO Alprazolam 0.5 MG TID PRN 07/10 1730 AC 07/10 PO 07/17 1729 2303 Buprenorphine/ 1 TAB Q6 PRN 07/10 1730 AC Naloxone SL Diphenhydramine HCl 25 MG ONCE ONE 07/11 0630 DC 07/11 IV 07/11 0631 0649 Diphenhydramine HCl 25 MG ONCE ONE 07/10 2230 DC 07/10 IV 07/10 2231 2304 Diphenhydramine HCl 0 .STK-MED ONE 07/10 1405 DC .ROUTE Diphenhydramine HCl 50 MG ONCE ONE 07/10 1345 DC 07/10 IV 07/10 1346 1409 Enoxaparin Sodium 40 MG DAILY 07/10 1618 AC SC Escitalopram Oxalate 10 MG QPM 07/10 2200 AC 07/10 PO 2307 Hydromorphone HCl 0.4 MG ONCE ONE 07/11 0630 DC 07/11 IV 07/11 0631 0648 Hydromorphone HCl 0.6 MG ONCE ONE 07/11 0115 DC 07/11 IV 07/11 0116 0128 Hydromorphone HCl 1 MG ONCE ONE 07/10 1915 DC 07/10 IV 07/10 1916 2006 Hydromorphone HCl 2 MG Q6P PRN 07/10 1745 AC 07/10 PO 1904 Hydromorphone HCl 0 .STK-MED ONE 07/10 1331 DC .ROUTE Hydromorphone HCl 1 MG ONCE ONE 07/10 1330 DC 07/10 IV 07/10 1331 1333 Hydromorphone HCl 1 MG ONCE ONE 07/10 1215 DC 07/10 IV 07/10 1216 1214 Hydromorphone HCl 0 .STK-MED ONE 07/10 1211 DC .ROUTE Ketorolac 30 MG ONCE ONE 07/10 1130 CAN Tromethamine IV 07/10 1131 Lidocaine 1 PAT Q24H PRN 07/10 1630 AC 07/10 EXT 1715 Ondansetron HCl 0 .STK-MED ONE 07/10 1331 DC .ROUTE Ondansetron HCl 4 MG ONCE ONE 07/10 1330 DC 07/10 IV 07/10 1331 1333 Ondansetron HCl 4 MG ONCE ONE 07/10 1130 CAN IV 07/10 1131 Patient Medication 1 UNIT ONE NR 07/10 1630 DC Teaching ED 07/10 1700 Promethazine HCl 12.5 MG ONCE ONE 07/10 2130 DC 07/10 IV 07/10 2131 2147 Promethazine HCl 25 MG Q6P PRN 07/10 1745 AC PO 07/17 1744 Promethazine HCl 0 .STK-MED ONE 07/10 1208 DC .ROUTE Promethazine HCl 25 MG ONCE ONE 07/10 1200 DC 07/10 IV 07/10 1201 1214 Sodium Chloride 1,000 ML Q13H 07/11 0445 AC 07/11 IV 0459 Sodium Chloride 1,000 ML BOLUS ONE 07/10 1130 DC 07/10 IV 07/10 1229 1214 Past History Travel History Traveled to [place] past 21 day No Medical History Blood Transfusion Hx: Yes 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 Home Who Do You Live With? parent Services at Home: None Primary Language: Luxembourger Smoking Status: Never Smoked ETOH Use: occasional use Illicit Drug Use: denies illicit drug use Functional Ability ADLs Independent: dressing, eating, toileting, bathing. Ambulation: independent IADLs Independent: shopping, housework, finances, food prep, telephone, transportation , medication admin. Review of Systems Review of Systems Constitutional: Reports: chills, fever. Denies: diaphoresis, malaise, unexplained weight loss. EENTM: Denies: no symptoms. Cardiovascular: Denies: no symptoms. Respiratory: Denies: no symptoms. GI: Reports: see HPI. Genitourinary: Reports: dysuria. Musculoskeletal: Reports: joint pain, muscle pain. Denies: joint swelling. Skin: Reports: rash. Neurological/Psychological: Denies: no symptoms. Hematologic/Endocrine: Denies: no symptoms. Immunologic/Allergic: Denies: no symptoms. All Other Systems: Reviewed and Negative Exam & Diagnostic Data Vital Signs and I&O Vital Signs Date Time Temp Pulse Resp B/P Pulse O2 O2 Flow FiO2 Ox Delivery Rate 07/11 0008 98.7 83 20 108/78 97 07/10 1609 99.8 112 20 127/78 95 Room Air 07/10 1409 98.9 07/10 1333 98.6 85 18 136/85 98 Room Air 07/10 1117 98.2 107 18 141/97 97 Room Air Intake & Output 07/11 04007/09 040 Intake Total 270 340 Output Total 400 300 Balance -130 40 Intake, IV 150 100 Intake, Oral 120 240 Output, Urine 400 300 Patient 150 lb 150 lb Weight Physical Exam General Appearance: well developed/nourished, no apparent distress, alert, comfortable Head: atraumatic, normal appearance Eyes: Bilateral: normal appearance. Ears, Nose, Throat: normal pharynx, normal ENT inspection Neck: normal inspection, supple, full range of motion Respiratory: normal breath sounds, chest non-tender, no respiratory distress Cardiovascular: regular rate/rhythm Gastrointestinal: normal bowel sounds, soft, tenderness Rectal: deferred Back: normal inspection, CVA tenderness (R) Extremities: normal inspection, no edema Neurologic/Psych: no motor/sensory deficits, awake, alert, oriented x 3 Skin: intact, normal color, warm/dry Results Pertinent Lab Results: Laboratory Tests 07/11 07/10 0520 1337 Chemistry Sodium (137 - 145 mmol/L) 136 L Potassium (3.5 - 5.1 mmol/L) 3.9 Chloride (98 - 107 mmol/L) 102 Carbon Dioxide (22 - 30 mmol/L) 25 Anion Gap (5 - 16) 9 BUN (7 - 17 mg/dL) 10 Creatinine (0.5 - 1.0 mg/dL) 0.8 Estimated GFR (>60 ml/min) > 60 BUN/Creatinine Ratio (7 - 25 %) 12.5 Hematology CBC w Diff NO MAN DIFF REQ WBC (4.8 - 10.8 /CUMM) 10.0 RBC (4.20 - 5.40 /CUMM) 3.39 L Hgb (12.0 - 16.0 G/DL) 10.5 L Hct (37 - 47 %) 31.1 L MCV (81.0 - 99.0 FL) 91.6 MCH (27.0 - 31.0 PG) 31.0 RDW (11.5 - 14.5 %) 13.0 Plt Count (130 - 400 /CUMM) 248 MPV (7.4 - 10.4 FL) 8.7 Gran % (42.2 - 75.2 %) 56.0 Lymphocytes % (20.5 - 51.1 %) 29.4 Monocytes % (1.7 - 9.3 %) 9.8 H Eosinophils % (0 - 5 %) 4.1 Basophils % (0.0 - 2.0 %) 0.7 Absolute Granulocytes (1.4 - 6.5 /CUMM) 5.6 Absolute Lymphocytes (1.2 - 3.4 /CUMM) 2.9 Absolute Monocytes (0.10 - 0.60 /CUMM) 1.0 H Absolute Eosinophils (0.0 - 0.7 /CUMM) 0.4 Absolute Basophils (0.0 - 0.2 /CUMM) 0.1 PUBS MCHC (33.0 - 37.0 G/DL) 33.9 Urines Urine Color (YEL,AMB,STR) YEL Urine Clarity (CLEAR) CLEAR Urine pH (5.0 - 8.0) 7.5 Ur Specific [place] (1.001 - 1.035) 1.010 Urine Protein (NEG,<30 MG/DL) NEG Urine Ketones (NEG) NEG Urine Nitrite (NEG) NEG Urine Bilirubin (NEG) NEG Urine Urobilinogen (0.1 - 1.0 EU/dl) 0.2 Ur Leukocyte Esterase (NEG) NEG Ur Microscopic SEDIMENT EXAMINED Urine RBC (0 - 5 /HPF) RARE Ur Epithelial Cells (NONE,FEW) FEW Urine Hemoglobin (NEG) SMALL H Urine Glucose (N MG/DL) NEG Urine Test NEGATIVE 07/10 1200 Chemistry Sodium (137 - 145 mmol/L) 138 Potassium (3.5 - 5.1 mmol/L) 4.3 Chloride (98 - 107 mmol/L) 103 Carbon Dioxide (22 - 30 mmol/L) 25 Anion Gap (5 - 16) 11 BUN (7 - 17 mg/dL) 12 Creatinine (0.5 - 1.0 mg/dL) 0.8 Estimated GFR (>60 ml/min) > 60 BUN/Creatinine Ratio (7 - 25 %) 15.0 Glucose (65 - 99 mg/dL) 101 H Lactic Acid (0.7 - 2.1 mmol/L) 1.6 Calcium (8.4 - 10.2 mg/dL) 9.2 Total Bilirubin (0.2 - 1.3 mg/dL) 1.0 AST (14 - 36 U/L) 18 ALT (9 - 52 U/L) 18 Alkaline Phosphatase (<127 U/L) 67 Total Protein (6.3 - 8.2 g/dL) 7.7 Albumin (3.5 - 5.0 g/dL) 4.0 Globulin (1.9 - 4.2 gm/dL) 3.7 Albumin/Globulin Ratio (1.1 - 2.2 %) 1.1 Amylase (30 - 110 U/L) 44 Lipase (23 - 300 U/L) 123 Hematology CBC w Diff NO MAN DIFF REQ WBC (4.8 - 10.8 /CUMM) 9.1 RBC (4.20 - 5.40 /CUMM) 3.67 L Hgb (12.0 - 16.0 G/DL) 11.4 L Hct (37 - 47 %) 32.9 L MCV (81.0 - 99.0 FL) 89.7 MCH (27.0 - 31.0 PG) 31.0 RDW (11.5 - 14.5 %) 13.0 Plt Count (130 - 400 /CUMM) 267 MPV (7.4 - 10.4 FL) 8.8 Gran % (42.2 - 75.2 %) 66.7 Lymphocytes % (20.5 - 51.1 %) 21.4 Monocytes % (1.7 - 9.3 %) 8.7 Eosinophils % (0 - 5 %) 2.8 Basophils % (0.0 - 2.0 %) 0.4 Absolute Granulocytes (1.4 - 6.5 /CUMM) 6.1 Absolute Lymphocytes (1.2 - 3.4 /CUMM) 1.9 Absolute Monocytes (0.10 - 0.60 /CUMM) 0.8 H Absolute Eosinophils (0.0 - 0.7 /CUMM) 0.3 Absolute Basophils (0.0 - 0.2 /CUMM) 0 PUBS MCHC (33.0 - 37.0 G/DL) 34.6 Imaging/Other Studies: back ct scan: IMPRESSION: 1. There is a central and left paracentral disc protrusion compressing the thecal sac at L5-S1. There is impingement on the traversing S1 nerve roots bilaterally. 2. There is a broad-based posterior disc protrusion at L4-L5 extending into the inferior neural foramina bilaterally. There is no central stenosis. 07/07/16 Ct scan of abd/pelvis w/o IV contrast: FINDINGS: LUNG BASES: The visualized lung bases are unremarkable. LIVER, GALLBLADDER, AND BILIARY TREE: The liver is normal in size, shape, and attenuation. No focal hepatic lesion on noncontrast imaging. No biliary ductal dilatation is present. The gallbladder is unremarkable with no evidence of radiopaque gallstones, gallbladder wall thickening, or obvious pericholecystic inflammatory changes. PANCREAS, SPLEEN, ADRENAL GLANDS: Unremarkable on noncontrast imaging. KIDNEYS AND URETERS: The kidneys are normal in size, shape, and attenuation. No hydronephrosis, hydroureter, or calculi seen. The previously seen nonobstructing mid left renal calcification is no longer visualized. No perinephric stranding. BLADDER: Unremarkable. GASTROINTESTINAL TRACT: The small and large bowel are decompressed. There is evidence of prior proximal ascending colonic resection with ileocolonic anastomosis seen in the right mid flank. Slight groundglass opacity is noted in the small bowel mesentery, nonspecific, possibly due to subtle mesenteritis. No significant mesenteric adenopathy or free fluid is seen. ABDOMINAL WALL: No significant hernia is appreciated. LYMPH NODES, VASCULAR: Unremarkable. PELVIC VISCERA: The patient is status post hysterectomy and presumably oophorectomy. No adnexal mass seen. OSSEOUS STRUCTURES: There is an approximately 5.9 x 2.7 cm well-circumscribed lytic lesion with sclerotic margins in the proximal right femoral shaft, unchanged from prior studies dating back to 2013, consistent with a benign finding. IMPRESSION: 1. No evidence of nephrolithiasis or obstructive uropathy. 2. Subtle aarti mesentery appearance of the small bowel mesentery, raising the suspicion of mild mesenteritis. Clinical correlation requested. 3. Postsurgical changes seen in the right colon. 4. Benign lytic lesion with sclerotic margins in the proximal right femur, possibly a bone cyst or benign fibrous lesion. 07/07/16 ct scan: FINDINGS: LUNG BASES: The visualized lung bases are unremarkable. LIVER, GALLBLADDER, AND BILIARY TREE: The liver is normal in size, shape, and attenuation. No focal hepatic lesion on noncontrast imaging. No biliary ductal dilatation is present. The gallbladder is unremarkable with no evidence of radiopaque gallstones, gallbladder wall thickening, or obvious pericholecystic inflammatory changes. PANCREAS, SPLEEN, ADRENAL GLANDS: Unremarkable on noncontrast imaging. KIDNEYS AND URETERS: The kidneys are normal in size, shape, and attenuation. No hydronephrosis, hydroureter, or calculi seen. The previously seen nonobstructing mid left renal calcification is no longer visualized. No perinephric stranding. BLADDER: Unremarkable. GASTROINTESTINAL TRACT: The small and large bowel are decompressed. There is evidence of prior proximal ascending colonic resection with ileocolonic anastomosis seen in the right mid flank. Slight groundglass opacity is noted in the small bowel mesentery, nonspecific, possibly due to subtle mesenteritis. No significant mesenteric adenopathy or free fluid is seen. ABDOMINAL WALL: No significant hernia is appreciated. LYMPH NODES, VASCULAR: Unremarkable. PELVIC VISCERA: The patient is status post hysterectomy and presumably oophorectomy. No adnexal mass seen. OSSEOUS STRUCTURES: There is an approximately 5.9 x 2.7 cm well-circumscribed lytic lesion with sclerotic margins in the proximal right femoral shaft, unchanged from prior studies dating back to 2012, consistent with a benign finding. IMPRESSION: 1. No evidence of nephrolithiasis or obstructive uropathy. 2. Subtle aarti mesentery appearance of the small bowel mesentery, raising the suspicion of mild mesenteritis. Clinical correlation requested. 3. Postsurgical changes seen in the right colon. 4. Benign lytic lesion with sclerotic margins in the proximal right femur, possibly a bone cyst or benign fibrous lesion. Assessment/Plan Assessment/Recommendations: Assessment: Ms. Carter is a 41 year old female with a long standing history of crohns disease for which she is currently on remicade every 6 weeks which has reportedly put her in a clinical remission who presents with flank pain of uncertain etiology. She had a ct scan a few days ago which was negative for nephrolithiasis and her repeat UA on this visit was also unremarkable, but her UA from her ER visit a few days ago did show calcium oxalate crystals and RBCs so it is possible she may have had a small kidhey stone accounting for her flank pain. Her ct scan done of her back does show a herniated disk with nerve impingement so this could be contributing to her symptoms, but I am not certain that her pain distribution is consistent with radicular back pain. As she is now complaining of diarrhea, and vomiting it is possible her symptoms could be from a flare of her crohns disease, but it doesn't sound typical of her prior flares. She is concerned that her symptoms could be from adhesions from her hyserectomy a few months ago, but she is not clinically obstructed and this isn' t a typical location of pain from adhesions. She is also now complaining of vomiting which sounds to be related to the narcotics she is receiving, but it could be from underlying GERD or possibly from a crohns flare as well. Recommendations: 1. Diet as tolerated 2. Analgesia as needed 3. Follow up with neurosurgery if they feel the ct scan findings could explain her current symptoms 4. If pt has diarrhea would check stool for c. diff, culture, o and p and lactoferrin 5. Use anti-spasmodic medication as needed for LLQ pain 6. Start an oral ppi daily for empiric treatment of possible underlying GERD 7. Administer anti-emetics as needed 8. 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 9. Would also strain her urine to see if she passes a kidney stone which may have been missed on imaging I will continue to follow this patient and make further recommendation based on her clinical course and results of repeat blood work. Problem List: 1. Diarrhea 2. Intractable abdominal pain 3. Nausea & vomiting 4. Back pain Copies To: ARIELLE BEEBE,JULIOCESAR GIORDANO APRN. Consult Acknowledgment - Thank you for your consult request.
[2016-07-11 16:03] VITALS: BP 100/64
--- NOTE | 2016-07-11 16:11 | Cons- Orthopedic ---
General Information and HPI Consulting Request Date of Consult: 07/11/16 Requested By: LEAH MCDONOUGH MD Reason for Consult: CAT scan findings involving the lumbar spine Source of Information: patient Exam Limitations: no limitations History of Present Illness: This patient is a 41-year-old woman who was admitted for abdominal and flank pain. During workup of this problem and it was found that she has disc abnormalities at L4 5 and L5-S1. She has had some low back pain in the past without no lower extremity radiation or symptoms. She has a history of Crohn's and has had episode of diarrhea but she denies any ongoing bladder or bowel habit changes. The CAT scan that was done to work up her abdominal pain revealed these disc abnormalities and there was some concern about nerve impingement and therefore the consult was placed. Currently, patient denies any back pain. She currently denies any lower extremity involvement. Allergies/Medications Allergies: Coded Allergies: tramadol (From ULTRAM) (Severe, HIVES, SOB 07/07/16) vancomycin (From VANCOCIN) (Severe, SOB, FACIAL SWELLING 07/07/16) Iodinated Contrast Media - Oral and (Intermediate, HIVES WITH OR WITHOUT PREMEDICATION - CAN NOT TAKE PERIOD 07/10/16) Sulfa (Sulfonamide Antibiotics) (Intermediate, HIVES 07/07/16) morphine (Intermediate, HIVES, RASH 07/07/16) adhesive (RASH 07/10/16) oxycodone (RASH, SOB 07/10/16) Home Med List: Alprazolam 0.5 MG TABLET 1 TAB PO TIDPRN PRN ANXIETY (Reported) Buprenorphine HCl/Naloxone HCl (Suboxone 2 MG-0.5 MG Sl Film) 2 MG-0.5 MG FILM 1 STR SL 4 TIMES/DAY PRN CHRONIC PAIN (Reported) Diphenhydramine HCl (Benadryl) 25 MG CAPSULE 1 CAP PO PRN NASUEA/ITCHING ( Reported) Escitalopram Oxalate 10 MG TABLET 1 TAB PO QPM MENTAL HEALTH (Reported) Hydromorphone HCl 4 MG TABLET 1 TAB PO Q6-PRN PRN PAIN (Reported) Hydromorphone HCl 2 MG TABLET 1 TAB PO Q6-PRN PRN PAIN (Reported) Hydroxyzine HCl 25 MG TABLET 1 TAB PO TID PRN ITCHING (Reported) Infliximab (Remicade) (Unknown Strength) VIAL (Unknown Dose) IV Q6W CROHNS ( Reported) Lidocaine (Lidoderm) 5 % ADH..PATCH 1 PAT TOP DAILY PAIN (Reported) may wear up to 12 hours Mesalamine (Canasa) 1,000 MG SUPP.RECT 1 SUP RC PRN RECTAL (Reported) Multivitamin (Daily Value) 1 EACH TABLET 1 TAB PO DAILY SUPPLEMENT (Reported) Ondansetron (Zofran Odt) 4 MG TAB.RAPDIS 1 TAB SL TID nausea Phenazopyridine HCl 200 MG TABLET 1 TAB PO TID URINE (Reported) after food Promethazine HCl 25 MG TABLET 1 TAB PO Q6P PRN NAUSEA/VOMITING (Reported) Past History Medical History Blood Transfusion Hx: Yes 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 Home Who Do You Live With? parent Services at Home: None Primary Language: Hong Konger Smoking Status: Never Smoked ETOH Use: occasional use Illicit Drug Use: denies illicit drug use Functional Ability ADLs Independent: dressing, eating, toileting, bathing. Ambulation: independent IADLs Independent: shopping, housework, finances, food prep, telephone, transportation , medication admin. Exam & Diagnostic Data Vital Signs and I&O Vital Signs Date Time Temp Pulse Resp B/P Pulse O2 O2 Flow FiO2 Ox Delivery Rate 07/11 1603 98.2 89 18 100/64 97 07/11 0826 99.3 85 20 107/61 96 Room Air 07/11 0008 98.7 83 20 108/78 97 07/10 1609 99.8 112 20 127/78 95 Room Air Intake & Output 07/11 1600 07/11 0800 07/11 0000 07/10 1600 07/10 0800 07/10 0000 Intake Total 1080 270 340 Output Total 700 400 300 Balance 380 -130 40 Intake, IV 560 150 100 Intake, Oral 520 120 240 Number 0 Bowel Movements Output, Urine 700 400 300 Patient 150 lb 150 lb Weight Physical Exam: Patient is alert And appropriate. She is in bed but moves comfortably. Examination of her lumbar spine reveals some mild tenderness along the paraspinal muscles on the right side. No midline tenderness. Normal symmetric strength lower extremities. She moves her lower extremities without apprehension. Imaging Results: CT scan was reviewed. There are some findings consistent with disc bulge/ protrusion causing some foraminal and central canal impingement at L4 5 and L5- S1. Assessment/Plan Assessment/Plan L4-L5 and L5-S1 degenerative disc protrusion with foraminal and central canal stenosis--I feel that this is an incidental finding due to workup for the abdominal problem. She is asymptomatic except for some occasional low back pain. Therefore no specific intervention is necessary. If she develops any lower extremity symptoms and further evaluation and assessment for treatment. Also, if she does develop any lower extremity symptoms and MRI would be more useful for this particular condition. At this time, this is not clinically indicated and therefore would monitor back issues and continue workup for her abdominal pain. No orthopedic intervention is necessary at this time Consult Acknowledgment - Thank you for your consult request.
[2016-07-12 00:10] VITALS: BP 112/68
[2016-07-12 06:32] LABS: ABSOLUTE BASOPHIL COUNT 0.1 /CUMM (0.0-0.2); ABSOLUTE EOSINOPHIL COUNT 0.5 /CUMM (0.0-0.7); ABSOLUTE GRANULOCYTE CT 4.5 /CUMM (1.4-6.5); ABSOLUTE LYMPH COUNT 2.8 /CUMM (1.2-3.4); ABSOLUTE MONOCYTE COUNT 0.9 /CUMM (0.10-0.60); BASOPHIL % 0.6 % (0.0-2.0); EOSINOPHIL % 5.8 % (0-5); GRANULOCYTE % 51.1 % (42.2-75.2); HEMATOCRIT 29.5 % (37-47); MEAN CORPUSCULAR HGB 30.7 PG (27.0-31.0); MEAN CORPUSCULAR HGB CONC 33.7 G/DL (33.0-37.0); MEAN CORPUSCULAR VOLUME 91.2 FL (81.0-99.0); MEAN PLATELET VOLUME 8.9 FL (7.4-10.4); PLATELET COUNT 241 /CUMM (130-400); RBC DISTRIBUTION WIDTH 13.1 % (11.5-14.5); RED BLOOD CELL CT 3.23 /CUMM (4.20-5.40); WHITE BLOOD CELL COUNT 8.8 /CUMM (4.8-10.8)
[2016-07-12 08:05] VITALS: BP 105/57
--- NOTE | 2016-07-12 08:51 | PN- Housestaff ---
HOLGER BEEBE,CRISTOPHER 07/12/16 0850: Subjective Follow-up For: Intractable abdominal pain Nausea and vomiting Back pain Possible Crohn's flare Subjective: Patient seen and examined at bedside. No acute events overnight. Remains afebrile, alert, awake, and oriented x 3. She continues to endorse abdominal and back pain associated with nausea, and diarrhea. Patient requests IV narcotics and Benadryl. Patient states that she cannot get any IV contrast because of severe allergy. Review of Systems Constitutional: Reports: see HPI. Objective Last 24 Hrs of Vital Signs/I&O Vital Signs Date Time Temp Pulse Resp B/P Pulse O2 O2 Flow FiO2 Ox Delivery Rate 07/12 0805 98.5 83 20 105/57 96 Room Air 07/12 0010 97.9 84 18 112/68 99 Room Air 07/11 1603 98.2 89 18 100/64 97 Intake & Output 07/12 1600 07/12 0800 07/12 0000 Intake Total 720 660 Output Total 250 950 Balance 470 -290 Intake, IV 600 300 Intake, Oral 120 360 Output, Urine 250 950 Physical Exam General Appearance: Alert, Oriented X3, Cooperative, No Acute Distress Other Physical Findings: HEENT: Mucous Membr. moist/pink Cardiovascular: Regular Rate, Normal S1, Normal S2, No Murmurs, Gallops, Rubs Lungs: Clear to Auscultation, Normal Air Movement Abdomen: Soft, TTP Most Pronounced at RLQ, R CVA Tenderness Extremities: No Clubbing, No Cyanosis, No Edema Current Medications: Current Medications Sig/Elise Start time Last Medication Dose Route Stop Time Status Admin Acetaminophen 650 MG Q6P PRN 07/10 1630 AC PO Alprazolam 0.5 MG TID PRN 07/10 1730 AC 07/11 PO 07/17 1729 2154 Buprenorphine/ 1 TAB Q6 PRN 07/10 1730 AC Naloxone SL Dicyclomine HCl 20 MG 4 TIMES/DAY PRN 07/11 1300 AC PO Enoxaparin Sodium 40 MG DAILY 07/10 1618 AC 07/11 SC 0914 Escitalopram Oxalate 10 MG QPM 07/10 2200 AC 07/11 PO 2153 Hydromorphone HCl 0.4 MG ONCE ONE 07/12 0615 DC 07/12 IV 07/12 0616 0645 Hydromorphone HCl 0.4 MG ONCE ONE 07/11 2315 DC 07/11 IV 07/11 2316 2335 Hydromorphone HCl 0.4 MG ONCE ONE 07/11 1530 DC 07/11 IV 07/11 1531 1651 Hydromorphone HCl 2 MG Q6P PRN 07/10 1745 AC 07/11 PO 0919 Lidocaine 1 PAT Q24H PRN 07/10 1630 AC 07/12 EXT 0155 Magnesium Oxide 400 MG ONE ONE 07/11 1600 DC PO 07/11 1601 Omeprazole 40 MG DAILY AC 07/11 1259 AC 07/11 PO 1656 Potassium Chloride 10 MEQ ONCE ONE 07/11 1315 DC 07/11 PO 07/11 1316 1651 Promethazine HCl 25 MG Q6P PRN 07/10 1745 AC 07/11 PO 07/17 1744 1645 Sodium Chloride 1,000 ML Q13H 07/11 0445 AC 07/11 IV 2004 Trimethobenzamide HCl 200 MG ONCE ONE 07/11 1800 DC 07/11 IM 07/11 1801 2158 Last 24 Hrs of Lab/Junaid Results Last 24 Hrs of Labs/Mics: Laboratory Tests 07/12/16 0540: Anion Gap 5, Estimated GFR > 60, BUN/Creatinine Ratio 11.3, Magnesium 1.9, CBC w Diff NO MAN DIFF REQ, RBC 3.23 L, MCV 91.2, MCH 30.7, RDW 13.1, MPV 8.9, Gran % 51.1, Lymphocytes % 32.3, Monocytes % 10.2 H, Eosinophils % 5.8 H, Basophils % 0.6, Absolute Granulocytes 4.5, Absolute Lymphocytes 2.8, Absolute Monocytes 0.9 H, Absolute Eosinophils 0.5, Absolute Basophils 0.1, PUBS MCHC 33.7 Assessment/Plan Assessment: This is a 41-year-old female with past medical history of Crohn's disease( multiple flares currently on Remicade infusions every 6 weeks, last one was in June 18) , recurrent UTIs, endometriosis complicated by additions for which she underwent adhesion lysis and hysterectomy. Her vital signs on admission were temperature 98.2, pulse 107, respiratory rate 18, blood pressure 141/97, pulse ox 97 on room air. Admission labs were WBC count 9.1, hemoglobin 11.4, hematocrit 32.9, platelet count 267, sodium 138, potassium 4.3, BUN 12, creatinine 0.8, normal LFTs, amylase and lipase. CT lumbar spine showed central and left paracentral disc protrusion compressing the thecal sac at L5 and S1 and impingement on the traversing S1 nerve roots bilaterally. Will admit the patient and monitor for the following conditions: Right sided abdomen/back pain: Etiology at the moment unclear, likely due to underlying Crohn's disease versus C. difficile colitis(patient has history of recent recurrent antibiotic use) versus nephrolithiasis, cystitis, versus chronic pain syndrome C. difficile toxin/stool culture Pain management with Dilaudid and Suboxone IV Phenergan for nausea and vomiting as needed * Per GI, although Crohn's flare is a possibility her symptoms are atypical of her prior flares. Small bowel obstruction secondary to adhesions from her hysterectomy is also a possibility but unlikely given the atypical location of the pain and lack of obstructive symptoms. Vomiting is most likely related to the narcotics although it could be from underlying GERD or a possible Crohn's flare. * Follow C. diff, stool cultures, ova & parasites and lactoferrin. * Continue anti-spasmodic bentyl 20 mg QID PRN for abdominal pain. * Cont Prilosec 40 mg PO QD for possible GERD. * Per GI, patient can be discharged home with outpatient GI follow-up within a few days if she is able to tolerate diet and her pain is well-controlled. At that time, an endoscopic work-up can be pursued to look for more objective evidence of a Crohn's flare which may benefit from steroid therapy. * Follow UA, urine culture * Pain control with IV Dilaudid 1mg Q4P servere pain for now Back pain : CT scan showed evidence of central and left paracentral disc protrusion compressing the thecal sac at L5 and S1 and impingement on the traversing S1 nerve roots bilaterally. * Per ortho, the CT scan finding is incidental and no intervention is warranted at this time. If she develops any lower extremity symptoms an MRI can be considered for further evaluation. Will continue regular diet DVT prophylaxis with Lovenox Patient is full code Problem List: 1. UTI (urinary tract infection) 2. Back pain 3. Hematuria 4. Hematuria 5. Nausea & vomiting 6. Intractable abdominal pain 7. Diarrhea 8. Intermittent fever 9. Crohns disease Pain Ratin Pain Location: LLQ abdomen Right sided lower back Pain Goal: Remain pain free Pain Plan: Moderate pathway Tomorrow's Labs & Rationales: CBC to monitor signs of infection BEP to check for electrolyte disturbances EMILY BEEBEGARZA 07/12/16 1219: Attending MD Review Statement Attending Statement Attending MD Statement: examined this patient, discuss w/resident/PA/MAINTENANCE MECHANIC HELPER, agreed w/resident/PA/MAINTENANCE MECHANIC HELPER, reviewed EMR data (avail), reviewed images Attending Assessment/Plan: 41-year-old young female with a chronic history of Crohn's disease on Remicade infusion and is persistently following up with GI, chronic back pain is being admitted to the floor with back pain and left lower abdominal pain. Patient was examined this morning on the bedside and is still complaining of pain and is coming up with her own regimen and plans for pain and nausea. labs were reviewed and there is a drop off 1 g of hemoglobin from yesterday which could be due to dilution. Her pain is being controlled with IV Dilaudid. She is also taking Suboxone. GI followed and has given the recommendations. Presently no plans for endoscopy or any other invasive procedures since the patient is on IV Remicade. Consider Endoscopy if the patient symptoms persists with no improvement in her pain and a trial of steroids. Given her CT spine findings, orthopedic surgeon evaluated the patient and don't think so that the degenerative disc protrusion is the cause for her pain. Patient continues to have issues keeping things down in the stomach and constantly feels nauseous. We'll switch Zofran with phenergan and will decrease the hydromorphone to a lower dose but will give every Q 4 instead of Q6. We'll continue to monitor the patient over the weekend.
--- NOTE | 2016-07-12 13:26 | PN- Gastroenterology ---
Assessment/Plan Assessment/Recommendations: Assessment: Ms. Carter is a 41 year old female with a long standing history of crohns disease for which she is currently on remicade every 6 weeks which has reportedly put her in a clinical remission who presents with flank pain of uncertain etiology. While it is possible her symptoms could be from a flare of her IBD she has not had any diarrhea since being admitted and recent imaging didn't reveal any obvious bowel inflammation. She also continues to have vomiting which I feel is likely a combination of narcotics and underlying GERD and I don't feel it is related to her crohns which appears to be in a clinical remission. Recommendations: 1. Diet as tolerated 2. Analgesia as needed 3. Follow up with neurosurgery if they feel the ct scan findings could explain her current symptoms 4. If pt has diarrhea would check stool for c. diff, culture, o and p and lactoferrin 5. Use anti-spasmodic medication as needed for LLQ pain 6. Increase her oral ppi daily for empiric treatment of possible underlying GERD to twice a day. 7. Administer anti-emetics as needed 8. If pts diet is able to be advanced and her pain is able to be controlled with oral pain medication will hopefully be able to discharge her home in a few days to follow up with her outpatient stained glass artist, but if her symptoms persist it may then be reasonable to consider pursuing an inpatient endoscopic work up to look for more objective evidence of a crohns flare which may benefit from steroids which I currently feel are unnecessary. So as she continues to complain of vomiting will tentatively plan to pursue an EGD on wednesday if her diet can't be advanced by then. I will continue to follow this patient and make further recommendation based on her clinical course and results of repeat blood work. Problem List: 1. Back pain 2. Nausea & vomiting 3. Diarrhea 4. Crohns disease Subjective Subjective: She continues to complain of right sided flank pain requiring IV narcotics. She also continues to report vomiting and not being able to tolerate POs. She is without any hemeatemesis. She has not been able to submit a stool sample and she reports that she is now constipated. Objective Vital Signs and I&Os Vital Signs Date Time Temp Pulse Resp B/P Pulse O2 O2 Flow FiO2 Ox Delivery Rate 07/12 0805 98.5 83 20 105/57 96 Room Air 07/12 0010 97.9 84 18 112/68 99 Room Air 07/11 1603 98.2 89 18 100/64 97 Intake & Output 07/12 1600 07/12 0400 07/11 1600 07/11 0400 07/10 1600 07/10 0400 Intake Total 371 543 2717 340 Output Total 375 202 3323 300 Balance 470 -290 250 40 Intake, IV 600 300 710 100 Intake, Oral 120 360 640 240 Number 0 Bowel Movements Output, Urine 015 571 0821 300 Patient 150 lb 150 lb Weight Physical Exam General Appearance: well developed/nourished, no apparent distress, alert, anxious Head: atraumatic, normal appearance Ears, Nose, Throat: normal pharynx Neck: normal inspection, supple, full range of motion Respiratory: normal breath sounds, chest non-tender Cardiovascular: regular rate/rhythm Abdomen: normal bowel sounds, soft, tenderness Rectal: deferred Back: normal inspection, normal range of motion Extremities: normal inspection, normal range of motion Skin: intact, normal color, warm/dry Current Medications: Current Medications Sig/Elise Start time Last Medication Dose Route Stop Time Status Admin Acetaminophen 650 MG Q6P PRN 07/10 1630 AC PO Alprazolam 0.5 MG TID PRN 07/10 1730 AC 07/11 PO 07/17 1729 2154 Buprenorphine/ 1 TAB Q6 PRN 07/10 1730 AC Naloxone SL Dicyclomine HCl 20 MG 4 TIMES/DAY PRN 07/11 1300 AC PO Enoxaparin Sodium 40 MG DAILY 07/10 1618 07/12 SC 1020 Escitalopram Oxalate 10 MG QPM 07/10 2200 AC 07/11 PO 2153 Hydromorphone HCl 1 MG Q4P PRN 07/12 1045 AC PO Hydromorphone HCl 0.4 MG ONCE ONE 07/12 0615 DC 07/12 IV 07/12 0616 0645 Hydromorphone HCl 0.4 MG ONCE ONE 07/11 2315 DC 07/11 IV 07/11 2316 2335 Hydromorphone HCl 0.4 MG ONCE ONE 07/11 1530 DC 07/11 IV 07/11 1531 1651 Hydromorphone HCl 2 MG Q6P PRN 07/10 1745 DC 07/11 PO 0919 Lidocaine 1 PAT Q24H PRN 07/10 1630 07/12 EXT 0155 Magnesium Oxide 400 MG ONE ONE 07/11 1600 DC PO 07/11 1601 Omeprazole 40 MG DAILY AC 07/11 1259 AC 07/11 PO 1656 Promethazine HCl 25 MG Q4P PRN 07/12 1230 AC PO 07/19 1229 Promethazine HCl 12.5 MG Q4 HRS NEEDED PRN 07/12 1200 DC IV 07/19 1159 Promethazine HCl 25 MG Q6P PRN 07/10 1745 AC 07/11 PO 07/17 174 1645 Sodium Chloride 1,000 ML Q13H 07/11 0445 AC 07/11 IV 2004 Trimethobenzamide HCl 200 MG ONCE ONE 07/11 1800 DC 07/11 IM 07/11 1801 2158 Results Pertinent Lab Results: Laboratory Tests 07/12 07/12 UNK 0540 Chemistry Sodium (137 - 145 mmol/L) 136 L Potassium (3.5 - 5.1 mmol/L) 3.8 Chloride (98 - 107 mmol/L) 105 Carbon Dioxide (22 - 30 mmol/L) 26 Anion Gap (5 - 16) 5 BUN (7 - 17 mg/dL) 9 Creatinine (0.5 - 1.0 mg/dL) 0.8 Estimated GFR (>60 ml/min) > 60 BUN/Creatinine Ratio (7 - 25 %) 11.3 Magnesium (1.6 - 2.3 mg/dL) 1.9 Hematology CBC w Diff NO MAN DIFF REQ WBC (4.8 - 10.8 /CUMM) 8.8 RBC (4.20 - 5.40 /CUMM) 3.23 L Hgb (12.0 - 16.0 G/DL) 9.9 L Hct (37 - 47 %) 29.5 L MCV (81.0 - 99.0 FL) 91.2 MCH (27.0 - 31.0 PG) 30.7 RDW (11.5 - 14.5 %) 13.1 Plt Count (130 - 400 /CUMM) 241 MPV (7.4 - 10.4 FL) 8.9 Gran % (42.2 - 75.2 %) 51.1 Lymphocytes % (20.5 - 51.1 %) 32.3 Monocytes % (1.7 - 9.3 %) 10.2 H Eosinophils % (0 - 5 %) 5.8 H Basophils % (0.0 - 2.0 %) 0.6 Absolute Granulocytes (1.4 - 6.5 /CUMM) 4.5 Absolute Lymphocytes (1.2 - 3.4 /CUMM) 2.8 Absolute Monocytes (0.10 - 0.60 /CUMM) 0.9 H Absolute Eosinophils (0.0 - 0.7 /CUMM) 0.5 Absolute Basophils (0.0 - 0.2 /CUMM) 0.1 PUBS MCHC (33.0 - 37.0 G/DL) 33.7 Urines Urine Total Volume Cancelled Ur Sodium 24 Hour Cancelled Ur Potassium 24 Hour Cancelled 07/11 07/10 0520 1337 Chemistry Sodium (137 - 145 mmol/L) 136 L Potassium (3.5 - 5.1 mmol/L) 3.9 Chloride (98 - 107 mmol/L) 102 Carbon Dioxide (22 - 30 mmol/L) 25 Anion Gap (5 - 16) 9 BUN (7 - 17 mg/dL) 10 Creatinine (0.5 - 1.0 mg/dL) 0.8 Estimated GFR (>60 ml/min) > 60 BUN/Creatinine Ratio (7 - 25 %) 12.5 Magnesium (1.6 - 2.3 mg/dL) 1.7 Hematology CBC w Diff NO MAN DIFF REQ WBC (4.8 - 10.8 /CUMM) 10.0 RBC (4.20 - 5.40 /CUMM) 3.39 L Hgb (12.0 - 16.0 G/DL) 10.5 L Hct (37 - 47 %) 31.1 L MCV (81.0 - 99.0 FL) 91.6 MCH (27.0 - 31.0 PG) 31.0 RDW (11.5 - 14.5 %) 13.0 Plt Count (130 - 400 /CUMM) 248 MPV (7.4 - 10.4 FL) 8.7 Gran % (42.2 - 75.2 %) 56.0 Lymphocytes % (20.5 - 51.1 %) 29.4 Monocytes % (1.7 - 9.3 %) 9.8 H Eosinophils % (0 - 5 %) 4.1 Basophils % (0.0 - 2.0 %) 0.7 Absolute Granulocytes (1.4 - 6.5 /CUMM) 5.6 Absolute Lymphocytes (1.2 - 3.4 /CUMM) 2.9 Absolute Monocytes (0.10 - 0.60 /CUMM) 1.0 H Absolute Eosinophils (0.0 - 0.7 /CUMM) 0.4 Absolute Basophils (0.0 - 0.2 /CUMM) 0.1 PUBS MCHC (33.0 - 37.0 G/DL) 33.9 Urines Urine Color (YEL,AMB,STR) YEL Urine Clarity (CLEAR) CLEAR Urine pH (5.0 - 8.0) 7.5 Ur Specific [place] (1.001 - 1.035) 1.010 Urine Protein (NEG,<30 MG/DL) NEG Urine Ketones (NEG) NEG Urine Nitrite (NEG) NEG Urine Bilirubin (NEG) NEG Urine Urobilinogen (0.1 - 1.0 EU/dl) 0.2 Ur Leukocyte Esterase (NEG) NEG Ur Microscopic SEDIMENT EXAMINED Urine RBC (0 - 5 /HPF) RARE Ur Epithelial Cells (NONE,FEW) FEW Urine Hemoglobin (NEG) SMALL H Urine Glucose (N MG/DL) NEG Urine Test NEGATIVE 07/10 1200 Chemistry Sodium (137 - 145 mmol/L) 138 Potassium (3.5 - 5.1 mmol/L) 4.3 Chloride (98 - 107 mmol/L) 103 Carbon Dioxide (22 - 30 mmol/L) 25 Anion Gap (5 - 16) 11 BUN (7 - 17 mg/dL) 12 Creatinine (0.5 - 1.0 mg/dL) 0.8 Estimated GFR (>60 ml/min) > 60 BUN/Creatinine Ratio (7 - 25 %) 15.0 Glucose (65 - 99 mg/dL) 101 H Lactic Acid (0.7 - 2.1 mmol/L) 1.6 Calcium (8.4 - 10.2 mg/dL) 9.2 Total Bilirubin (0.2 - 1.3 mg/dL) 1.0 AST (14 - 36 U/L) 18 ALT (9 - 52 U/L) 18 Alkaline Phosphatase (<127 U/L) 67 Total Protein (6.3 - 8.2 g/dL) 7.7 Albumin (3.5 - 5.0 g/dL) 4.0 Globulin (1.9 - 4.2 gm/dL) 3.7 Albumin/Globulin Ratio (1.1 - 2.2 %) 1.1 Amylase (30 - 110 U/L) 44 Lipase (23 - 300 U/L) 123 Hematology CBC w Diff NO MAN DIFF REQ WBC (4.8 - 10.8 /CUMM) 9.1 RBC (4.20 - 5.40 /CUMM) 3.67 L Hgb (12.0 - 16.0 G/DL) 11.4 L Hct (37 - 47 %) 32.9 L MCV (81.0 - 99.0 FL) 89.7 MCH (27.0 - 31.0 PG) 31.0 RDW (11.5 - 14.5 %) 13.0 Plt Count (130 - 400 /CUMM) 267 MPV (7.4 - 10.4 FL) 8.8 Gran % (42.2 - 75.2 %) 66.7 Lymphocytes % (20.5 - 51.1 %) 21.4 Monocytes % (1.7 - 9.3 %) 8.7 Eosinophils % (0 - 5 %) 2.8 Basophils % (0.0 - 2.0 %) 0.4 Absolute Granulocytes (1.4 - 6.5 /CUMM) 6.1 Absolute Lymphocytes (1.2 - 3.4 /CUMM) 1.9 Absolute Monocytes (0.10 - 0.60 /CUMM) 0.8 H Absolute Eosinophils (0.0 - 0.7 /CUMM) 0.3 Absolute Basophils (0.0 - 0.2 /CUMM) 0 PUBS MCHC (33.0 - 37.0 G/DL) 34.6
[2016-07-12 15:55] VITALS: BP 104/88
[2016-07-13 00:07] VITALS: BP 106/78
[2016-07-13 08:04] VITALS: BP 110/68
[2016-07-13 08:41] LABS: ABSOLUTE BASOPHIL COUNT 0 /CUMM (0.0-0.2); ABSOLUTE EOSINOPHIL COUNT 0.6 /CUMM (0.0-0.7); ABSOLUTE GRANULOCYTE CT 5.1 /CUMM (1.4-6.5); ABSOLUTE LYMPH COUNT 3.2 /CUMM (1.2-3.4); BASOPHIL % 0.4 % (0.0-2.0); EOSINOPHIL % 5.8 % (0-5); GRANULOCYTE % 51.7 % (42.2-75.2); HEMATOCRIT 29.2 % (37-47); MEAN CORPUSCULAR HGB 31.8 PG (27.0-31.0); MEAN CORPUSCULAR HGB CONC 35.1 G/DL (33.0-37.0); MEAN CORPUSCULAR VOLUME 90.5 FL (81.0-99.0); MEAN PLATELET VOLUME 9.3 FL (7.4-10.4); PLATELET COUNT 248 /CUMM (130-400); RBC DISTRIBUTION WIDTH 12.8 % (11.5-14.5); RED BLOOD CELL CT 3.22 /CUMM (4.20-5.40); WHITE BLOOD CELL COUNT 9.8 /CUMM (4.8-10.8)
--- NOTE | 2016-07-13 11:19 | PN- Att Addend ---
Attending Addendum Attending Brief Note 41-year-old young female with a chronic history of Crohn's disease on Remicade infusion for the last 5 years and is persistently following up with GI, chronic back pain is being admitted to the floor with back pain and left lower abdominal pain. Patient was examined this morning on the bedside and is still complaining of pain and is coming up with her own regimen and plans for pain and nausea. labs were reviewed.Her pain is being controlled with IV Dilaudid. She is persistently asking for benedryl for her nausea as it helpe her relieve her nausea and vomiting. She is also on Suboxone therapy. Given her CT spine findings, orthopedic surgeon evaluated the patient and don't think so that the degenerative disc protrusion is the cause for her pain. GI is on board and would consider doing an endoscopy for possible Crohn's flare if the patient continues to have symptoms. Patient continues to have issues keeping things down in the stomach and constantly feels nauseous. We'll switch Zofran with phenergan and will decrease the hydromorphone to a lower dose but will give every Q 4 instead of Q6.
--- NOTE | 2016-07-13 13:44 | ULTRASOUND REPORT ---
EXAMINATION: US TRANSVAGINAL CLINICAL INFORMATION: 41-year-old female with persistent abdominal pain. COMPARISON: CT of the abdomen and pelvis done on 07/07/2016. TECHNIQUE: Transvaginal pelvic ultrasound. FINDINGS: The uterus is surgically absent since October 2015. The right ovary is visualized, measures 3.9 x 1.9 x 2.1 cm, shows few scattered follicles, the largest measures 1.2 cm. The arterial as well as venous flow to the right ovary is well-maintained. The left ovary is also visualized, measures 1.8 x 1.5 x 1.5 cm, shows few small follicles. The arterial as well as venous flow to the left ovary is well maintained. There is no free fluid present. IMPRESSION: 1. Sonographically unremarkable bilateral ovaries. Specifically, the arterial as well as venous flow to both ovaries are well maintained. The possibility of intermittent torsion, as you know, cannot be excluded based on this imaging appearance alone. 2. Surgically absent uterus. 3. No evidence of any free fluid within the pelvis.
[2016-07-13 16:18] VITALS: BP 90/58
[2016-07-13 23:43] VITALS: BP 100/62
[2016-07-14 07:40] VITALS: BP 94/56
--- NOTE | 2016-07-14 07:52 | PN- Housestaff ---
EMILY BEEBE,[facility] 07/14/16 0751: Subjective Follow-up For: Intractable abdominal pain Nausea and vomiting Back pain Possible Crohn's flare Subjective: Patient seen and examined this morning. She was lying in bed in no acute distress. She was nothing by mouth for endoscopy today. She continues to have right-sided abdominal pain and back pain. Continues to have nausea. Vitals within normal range. Review of Systems Constitutional: Denies: chills, fever. Cardiovascular: Denies: chest pain, palpitations. Respiratory: Denies: cough, short of breath, sputum production. Gastrointestinal: Reports: see HPI, abdominal pain, nausea, vomiting. Denies: constipation, diarrhea. Objective Last 24 Hrs of Vital Signs/I&O Vital Signs Date Time Temp Pulse Resp B/P Pulse O2 O2 Flow FiO2 Ox Delivery Rate 07/14 0938 98.5 90 20 106/60 97 Room Air 07/14 0808 100/54 07/14 0740 97.8 68 18 94/56 95 Room Air 07/13 2343 98.4 81 20 100/62 96 Room Air 07/13 1618 98.5 83 20 90/58 98 Intake & Output 07/14 1600 07/14 0800 07/14 0000 Intake Total 2100 750 Output Total 950 100 450 Balance 1150 -100 300 Intake, IV 1200 700 Intake, Oral 900 50 Output, 0 Emesis Output, Urine 950 100 450 Physical Exam General Appearance: Alert, Oriented X3, Cooperative, No Acute Distress Cardiovascular: Regular Rate, Normal S1, Normal S2, No Murmurs Lungs: Clear to Auscultation, Normal Air Movement Abdomen: rt sided abdominal tenderness Extremities: No Clubbing, No Cyanosis, No Edema Current Medications: Current Medications Sig/Elise Start time Last Medication Dose Route Stop Time Status Admin Acetaminophen 650 MG Q6P PRN 07/10 1630 AC PO Alprazolam 0.5 MG TID PRN 07/10 1730 AC 07/11 PO 07/17 1729 2154 Buprenorphine/ 1 TAB Q6 PRN 07/10 1730 AC Naloxone SL Dicyclomine HCl 20 MG 4 TIMES/DAY PRN 07/11 1300 AC 07/13 PO 0242 Diphenhydramine HCl 25 MG ONCE ONE 07/13 1845 DC 07/13 PO 07/13 1846 1853 Enoxaparin Sodium 40 MG DAILY 07/10 1618 AC 07/14 SC 0949 Escitalopram Oxalate 10 MG QPM 07/10 2200 AC 07/13 PO 2155 Hydromorphone HCl 0.8 MG Q4P PRN 07/12 1445 AC 07/14 IV 1356 Lidocaine 1 PAT Q24H PRN 07/10 1630 AC 07/13 EXT 1426 Omeprazole 40 MG BID 07/12 2200 AC 07/12 PO 2223 Ondansetron HCl 4 MG Q6P PRN 07/13 1315 DC 07/13 IV 1431 Promethazine HCl 12.5 MG Q4P PRN 07/13 2200 AC 07/14 IV 07/20 215 1356 Sodium Chloride 1,000 ML Q13H 07/11 0445 AC 07/14 IV 0949 Last 24 Hrs of Lab/Junaid Results Last 24 Hrs of Labs/Mics: Laboratory Tests 07/14/16 0540: Anion Gap 9, Estimated GFR > 60, BUN/Creatinine Ratio 8.6, CBC w Diff NO MAN DIFF REQ, RBC 2.99 L, MCV 91.5, MCH 31.8 H, RDW 12.8, MPV 9.3, Gran % 49.3, Lymphocytes % 32.0, Monocytes % 11.0 H, Eosinophils % 7.2 H, Basophils % 0.5, Absolute Granulocytes 3.5, Absolute Lymphocytes 2.3, Absolute Monocytes 0.8 H, Absolute Eosinophils 0.5, Absolute Basophils 0, PUBS MCHC 34.7 Assessment/Plan Assessment: This is a 41-year-old female with past medical history of Crohn's disease( multiple flares currently on Remicade infusions every 6 weeks, last one was in June 18) , recurrent UTIs, endometriosis complicated by additions for which she underwent adhesion lysis and hysterectomy. Her vital signs on admission were temperature 98.2, pulse 107, respiratory rate 18, blood pressure 141/97, pulse ox 97 on room air. Admission labs were WBC count 9.1, hemoglobin 11.4, hematocrit 32.9, platelet count 267, sodium 138, potassium 4.3, BUN 12, creatinine 0.8, normal LFTs, amylase and lipase. CT lumbar spine showed central and left paracentral disc protrusion compressing the thecal sac at L5 and S1 and impingement on the traversing S1 nerve roots bilaterally. Will admit the patient and monitor for the following conditions: Right sided abdomen/back pain: Etiology at the moment unclear, likely due to underlying Crohn's disease versus C. difficile colitis(patient has history of recent recurrent antibiotic use) versus nephrolithiasis, cystitis, versus chronic pain syndrome C. difficile toxin/stool culture Pain management with Dilaudid and Suboxone IV Phenergan for nausea and vomiting as needed * Patient scheduled for endoscopy today * Per GI, although Crohn's flare is a possibility her symptoms are atypical of her prior flares. Small bowel obstruction secondary to adhesions from her hysterectomy is also a possibility but unlikely given the atypical location of the pain and lack of obstructive symptoms. Vomiting is most likely related to the narcotics although it could be from underlying GERD or a possible Crohn's flare. * We will get a renal ultrasound to rule out any renal cause for right-sided abdominal pain. * Follow C. diff, stool cultures, ova & parasites and lactoferrin. * Continue anti-spasmodic bentyl 20 mg QID PRN for abdominal pain. * Cont Prilosec 40 mg PO QD for possible GERD. * Per GI, patient can be discharged home with outpatient GI follow-up within a few days if she is able to tolerate diet and her pain is well-controlled. At that time, an endoscopic work-up can be pursued to look for more objective evidence of a Crohn's flare which may benefit from steroid therapy. * Follow UA, urine culture * Pain control with IV Dilaudid 1mg Q4P servere pain for now Back pain : CT scan showed evidence of central and left paracentral disc protrusion compressing the thecal sac at L5 and S1 and impingement on the traversing S1 nerve roots bilaterally. * Per ortho, the CT scan finding is incidental and no intervention is warranted at this time. If she develops any lower extremity symptoms an MRI can be considered for further evaluation. Will continue regular diet DVT prophylaxis with Lovenox Patient is full code Problem List: 1. Nausea & vomiting 2. Crohns disease 3. Intractable abdominal pain 4. Back pain Pain Ratin Pain Location: Abdomen and back Pain Goal: Remain pain free Pain Plan: IV dilaudid 0.8 mg every 4 hours for severe pain 7-10 Bentyl 20 mg 4 times per day Tomorrow's Labs & Rationales: None JADE CRAWFORD MD 07/14/16 1232: Attending MD Review Statement Attending Statement Attending MD Statement: examined this patient, discuss w/resident/PA/PRECISION GRINDER EXTERNAL, agreed w/resident/PA/PRECISION GRINDER EXTERNAL, reviewed EMR data (avail), discussed with nursing, discussed with case mgmt, reviewed images, amended to note Attending Assessment/Plan: Patient seen and examined, not feeling well. Came by for endoscopy and continues to complain of back pain, abdominal pain and nausea stress. She claims that she is retching. She is complaining of urinary urgency. Vital Signs Date Time Temp Pulse Resp B/P Pulse O2 O2 Flow FiO2 Ox Delivery Rate 07/14 0938 98.5 90 20 106/60 97 Room Air 07/14 0808 100/54 07/14 0740 97.8 68 18 94/56 95 Room Air 07/13 2343 98.4 81 20 100/62 96 Room Air 07/13 1618 98.5 83 20 90/58 98 on exam; aox3, nad. cv; s1,s2, rrr. resp; clear. abd; soft, tender in epigastrium, bs+ ext; no edema. back: + CVA tenderness on right. Laboratory Tests 07/14 0540 Chemistry Sodium (137 - 145 mmol/L) 138 Potassium (3.5 - 5.1 mmol/L) 3.7 Chloride (98 - 107 mmol/L) 103 Carbon Dioxide (22 - 30 mmol/L) 25 Anion Gap (5 - 16) 9 BUN (7 - 17 mg/dL) 6 L Creatinine (0.5 - 1.0 mg/dL) 0.7 Estimated GFR (>60 ml/min) > 60 BUN/Creatinine Ratio (7 - 25 %) 8.6 Hematology CBC w Diff NO MAN DIFF REQ WBC (4.8 - 10.8 /CUMM) 7.1 RBC (4.20 - 5.40 /CUMM) 2.99 L Hgb (12.0 - 16.0 G/DL) 9.5 L Hct (37 - 47 %) 27.4 L MCV (81.0 - 99.0 FL) 91.5 MCH (27.0 - 31.0 PG) 31.8 H RDW (11.5 - 14.5 %) 12.8 Plt Count (130 - 400 /CUMM) 224 MPV (7.4 - 10.4 FL) 9.3 Gran % (42.2 - 75.2 %) 49.3 Lymphocytes % (20.5 - 51.1 %) 32.0 Monocytes % (1.7 - 9.3 %) 11.0 H Eosinophils % (0 - 5 %) 7.2 H Basophils % (0.0 - 2.0 %) 0.5 Absolute Granulocytes (1.4 - 6.5 /CUMM) 3.5 Absolute Lymphocytes (1.2 - 3.4 /CUMM) 2.3 Absolute Monocytes (0.10 - 0.60 /CUMM) 0.8 H Absolute Eosinophils (0.0 - 0.7 /CUMM) 0.5 Absolute Basophils (0.0 - 0.2 /CUMM) 0 PUBS MCHC (33.0 - 37.0 G/DL) 34.7 A/P; 41 y/o F with pmh sig for Crohn's disease(multiple flares currently on Remicade infusions every 6 weeks, last one was in June 18) with 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 She is currently admitted with intractable back pain which could be related to musculoskeletal issues, intractable nausea with some vomiting as well as retching. Patient underwent endoscopy today which shows some gastroparesis and gastritis. The dose of PPI is twice a day and will consider adding Reglan. Please obtain an EKG to make sure patient's QTC is okay. Currently she is on Phenergan as well as received Tigan for nausea and vomiting. Will advance diet as she tolerates. If able to tolerate diet then please stop the IV fluids. Although she had negative urinalysis yesterday, she is tender in the right CVA area, please obtain renal ultrasound. Please check with her doctor about the Suboxone dose as reportedly she is only on Suboxone when necessary. Patient able to tolerate diet, please try to switch her narcotics to oral. Continue antispasmodics. DVT prophylaxis: Lovenox.
[2016-07-14 08:08] VITALS: BP 100/54
[2016-07-14 08:23] LABS: ABSOLUTE BASOPHIL COUNT 0 /CUMM (0.0-0.2); ABSOLUTE EOSINOPHIL COUNT 0.5 /CUMM (0.0-0.7); ABSOLUTE GRANULOCYTE CT 3.5 /CUMM (1.4-6.5); ABSOLUTE LYMPH COUNT 2.3 /CUMM (1.2-3.4); ABSOLUTE MONOCYTE COUNT 0.8 /CUMM (0.10-0.60); BASOPHIL % 0.5 % (0.0-2.0); EOSINOPHIL % 7.2 % (0-5); GRANULOCYTE % 49.3 % (42.2-75.2); HEMATOCRIT 27.4 % (37-47); MEAN CORPUSCULAR HGB 31.8 PG (27.0-31.0); MEAN CORPUSCULAR HGB CONC 34.7 G/DL (33.0-37.0); MEAN CORPUSCULAR VOLUME 91.5 FL (81.0-99.0); MEAN PLATELET VOLUME 9.3 FL (7.4-10.4); PLATELET COUNT 224 /CUMM (130-400); RBC DISTRIBUTION WIDTH 12.8 % (11.5-14.5); RED BLOOD CELL CT 2.99 /CUMM (4.20-5.40); WHITE BLOOD CELL COUNT 7.1 /CUMM (4.8-10.8)
--- NOTE | 2016-07-14 08:43 | Proc Note Endoscopy ---
Endoscopy Procedure Medical History: unchanged (see meditech consult) Mental Status: alert/oriented Heart/Lung Eval Prior to Sedation: within normal limits Candidate for Sedation? Yes Procedure Date: 07/14/16 Procedure Type: EGD w/biopsy Spud Grader: Stefan Brown MD ASA Classification: III Indications: Abdominal pain, nausea and vomiting. New onset of reflux symptoms. Instrument: diagnostic gastroscope Meds Received: MAC Patient's Tolerance: good Complications: none Extent Reached: second part of duodenum Procedure: After getting written informed consent the patient was placed in the left lateral decubitus position with pulse oximetry, cardiac monitoring, and supplemental oxygen given. A bite block was inserted and IV sedation was given until the desired effect was achieved. A high definition upper Olympus endoscope was then inserted into the mouth and advanced to the second portion of the duodenum with little difficulty. Retroflexed views and photodocumentation was obtained. Findings: Esophagus: The esophageal mucosa was grossly normal in appearance and there was a normal-appearing Z line at 40 cm from the incisors. Stomach: The gastric mucosa was diffusely erythematous, but there were no ulcers , erosions, or masses appreciated. Distention was normal, but there was a moderate amount of leftover bile and peristalsis appeared decreased. Retroflexed views were normal and did not reveal a significant hiatal hernia. The pylorus was patent and easily traversable by the upper endoscope. Random biopsies were obtained from the antrum and body of the stomach with cold biopsy forceps and were sent to pathology for further evaluation. Duodenum: The duodenal bulb, sweep, and folds were grossly normal in appearance. Random biopsies were obtained from the second portion of the duodenum and were sent to pathology for further evaluation. Impression: 1. Moderate nonerosive gastritis and suggestion of gastroparesis which was likely secondary to narcotics status post gastric biopsies. 2. Grossly normal small bowel folds status post random biopsies. 3. Grossly normal esophagus and GE junction. Recommendations: 1. Her diet should be advanced as tolerated. 2. She should follow an antireflux regimen. 3. She should be maintained on an oral PPI and increase to twice a day dosing as needed. 4. She should eat smaller more frequent meals. 5. Would make efforts to minimize narcotic use. 6. If vomiting persists in spite of a PPI and antiemetics it may be reasonable to consider a trial of Reglan. 7. She should follow up the pathology results with me as an outpatient. CC: ARIELLE BEEBE,ROMELIA Edwards; JULIOCESAR VASQUEZ APRN.
[2016-07-14 09:38] VITALS: BP 106/60
[2016-07-14 16:13] VITALS: BP 108/74
[2016-07-15 00:11] VITALS: BP 100/68
[2016-07-15 07:34] VITALS: BP 100/66
--- NOTE | 2016-07-15 07:43 | PN- Housestaff ---
EMILY BEEBE,[facility] 07/15/16 0743: Subjective Follow-up For: Intractable abdominal pain Nausea and vomiting Back pain Possible Crohn's flare Subjective: Patient seen and examined this morning. She was lying in bed in no acute distress. She planes of ongoing nausea, she has somehow been able to keep full liquid diet down. Remains afebrile, endoscopy did not show any acute findings. Renal US did not show any acute findings. Review of Systems Constitutional: Denies: chills, fever. Cardiovascular: Denies: chest pain, palpitations. Respiratory: Denies: cough, sputum production. Gastrointestinal: Reports: see HPI, abdominal pain, bloating, nausea, vomiting. Musculoskeletal: Reports: see HPI, back pain. Objective Last 24 Hrs of Vital Signs/I&O Vital Signs Date Time Temp Pulse Resp B/P Pulse O2 O2 Flow FiO2 Ox Delivery Rate 07/15 0734 98.2 68 18 100/66 95 Room Air 07/15 0011 98.5 67 18 100/68 96 Room Air Intake & Output 07/15 1600 07/15 0800 07/15 0000 Intake Total 660 1525 Output Total 400 800 Balance 260 725 Intake, IV 600 525 Intake, Oral 60 1000 Output, Urine 400 800 Physical Exam General Appearance: Alert, Oriented X3, Cooperative, No Acute Distress Cardiovascular: Regular Rate, Normal S1, Normal S2, No Murmurs Lungs: Clear to Auscultation, Normal Air Movement Abdomen: tenderness in right abdominal region Extremities: No Clubbing, No Cyanosis, No Edema Current Medications: Current Medications Sig/Elise Start time Last Medication Dose Route Stop Time Status Admin Acetaminophen 650 MG Q6P PRN 07/10 1630 AC PO Alprazolam 0.5 MG TID PRN 07/10 1730 AC 07/14 PO 07/17 1729 1637 Buprenorphine/ 1 TAB Q6 PRN 07/10 1730 AC Naloxone SL Dicyclomine HCl 20 MG 4 TIMES/DAY PRN 07/11 1300 AC 07/13 PO 0242 Enoxaparin Sodium 40 MG DAILY 07/10 1618 AC 07/15 SC 0857 Escitalopram Oxalate 10 MG QPM 07/10 2200 AC 07/14 PO 2204 Hydromorphone HCl 4 MG Q4P PRN 07/15 1145 AC 07/15 PO 1401 Hydromorphone HCl 0.8 MG Q4P PRN 07/12 1445 DC 07/15 IV 1010 Lidocaine 1 PAT Q24H PRN 07/10 1630 AC 07/15 EXT 0854 Magnesium Hydroxide 30 ML AT BEDTIME PRN 07/15 1000 AC PO Omeprazole 40 MG BID 07/12 2200 AC 07/15 PO 0857 Polyethylene Glycol 17 GM DAILY 07/15 1000 AC PO Promethazine HCl 12.5 MG Q4P PRN 07/13 2200 AC 07/15 IV 07/20 2159 1401 Senna 187 MG AT BEDTIME 07/15 2200 AC PO Sodium Chloride 1,000 ML Q13H 07/11 0445 AC 07/15 IV 1402 Assessment/Plan Assessment: This is a 41-year-old female with past medical history of Crohn's disease( multiple flares currently on Remicade infusions every 6 weeks, last one was in June 18) , recurrent UTIs, endometriosis complicated by additions for which she underwent adhesion lysis and hysterectomy. Her vital signs on admission were temperature 98.2, pulse 107, respiratory rate 18, blood pressure 141/97, pulse ox 97 on room air. Admission labs were WBC count 9.1, hemoglobin 11.4, hematocrit 32.9, platelet count 267, sodium 138, potassium 4.3, BUN 12, creatinine 0.8, normal LFTs, amylase and lipase. CT lumbar spine showed central and left paracentral disc protrusion compressing the thecal sac at L5 and S1 and impingement on the traversing S1 nerve roots bilaterally. Will admit the patient and monitor for the following conditions: Right sided abdomen/back pain: Etiology at the moment unclear, likely due to underlying Crohn's disease versus C. difficile colitis(patient has history of recent recurrent antibiotic use) versus nephrolithiasis, cystitis, versus chronic pain syndrome Pain management with Dilaudid and Suboxone IV Phenergan for nausea and vomiting as needed * Endoscopy was done yesterday did not reveal any acute findings. He does have some gastroparesis for which Reglan was suggested by GI but patient is still reluctant to take it. * Per GI, although Crohn's flare is a possibility her symptoms are atypical of her prior flares. Small bowel obstruction secondary to adhesions from her hysterectomy is also a possibility but unlikely given the atypical location of the pain and lack of obstructive symptoms. Vomiting is most likely related to the narcotics although it could be from underlying gastroparesis, GERD or a possible Crohn's flare. * Renal ultrasound did not show any acute findings. * Continue anti-spasmodic bentyl 20 mg QID PRN for abdominal pain. * Cont Prilosec 40 mg PO QD for possible GERD. * Per GI, patient can be discharged home with outpatient GI follow-up within a few days if she is ablepursued to look for more objective evidence of a Crohn's flare which may benefit from steroid therapy. * UA did not show any evidence of urinary tract infection, urine culture no growth * Pain control with by mouth Dilaudid or mg Q4P. * Is currently on full liquid diet. Advance as tolerated. Back pain : CT scan showed evidence of central and left paracentral disc protrusion compressing the thecal sac at L5 and S1 and impingement on the traversing S1 nerve roots bilaterally. * Per ortho, the CT scan finding is incidental and no intervention is warranted at this time. If she develops any lower extremity symptoms an MRI can be considered for further evaluation. Will continue regular diet DVT prophylaxis with Lovenox Patient is full code Problem List: 1. Nausea & vomiting 2. Crohns disease 3. Back pain Pain Ratin Pain Location: Abdomen Pain Goal: Remain pain free Pain Plan: Dilaudid 4 mg by mouth every 4 hours Tomorrow's Labs & Rationales: None DVT/Prophylaxis: pharmacological GINGER HONG MD 07/15/16 1414: Attending MD Review Statement Attending Statement Attending MD Statement: examined this patient, discuss w/resident/PA/SEAT MENDER, agreed w/resident/PA/SEAT MENDER, reviewed EMR data (avail), discussed with nursing, discussed with case mgmt, amended to note Attending Assessment/Plan: Patient seen and examined. Lying in bed and not in acute distress. Nurses have reported by patient continues to complain of abdominal pain requesting Dilaudid essentially [id number]. Patient reports that her abdominal pain is still ongoing though slightly improved compared to admission. She reports adequate control with her current analgesic regimen. 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 The gastroenterology evaluation is appreciated. Her EGD shows evidence of gastritis and gastroparesis. Refuses to take Reglan but reports some relief with use of Phenergan. Her renal ultrasound and transvaginal ultrasound were both negative. On examination her lungs are clear bilaterally. Abdomen is soft with mild nonspecific diffuse tenderness. No rebound or guarding. Bowel sounds are active. No peripheral edema. Problems: 1. Pain syndrome; abdominal and lower back. No acute findings on repeated imaging. 2. Crohn's disease; no evidence of flareup at present. 3. Nausea and vomiting; no evidence of hepatobiliary disease on imaging. Plan: -Transition to oral Dilaudid. -Continue antiemetic therapy with Phenergan. -If patient tolerates the above regimen and able to maintain oral intake anticipate discharge home tomorrow. This was discussed with the patient and she is in agreement. -Recommend follow-up with the pain management physician upon discharge. -Recommend continued follow-up with the gastroenterology service as an outpatient. -Begin bowel regimen for opiate-induced constipation. Patient reports no bowel movement in several days.
--- NOTE | 2016-07-15 08:35 | ULTRASOUND REPORT ---
EXAMINATION: US RETROPERITONEAL COMPLETE (RENAL) CLINICAL INFORMATION: Worsening right flank pain status post antibiotic treatment. Nausea. High fever. COMPARISON: Renal ultrasound dated 08/03/2014. TECHNIQUE: Real-time imaging of the kidneys and bladder. FINDINGS: RIGHT KIDNEY: The right kidney is normal in size, measuring 10.3 x 4.2 x 4.9 cm. Renal cortical thickness is normal. No calculi or focal parenchymal lesions. No hydronephrosis. LEFT KIDNEY: The left kidney is normal in size, measuring 9.6 x 5.5 x 4.4 cm. Renal cortical thickness is normal. No calculi or focal parenchymal lesions. No hydronephrosis. BLADDER: Well-distended and normal. Bilateral ureteral jets are demonstrated. IMPRESSION: Normal sonographic appearance of both kidneys. No renal calculi are seen.
--- NOTE | 2016-07-15 16:00 | Patient Discharge Instructions ---
Discharge Instructions General Discharge Information You were seen/treated for: Nausea, vomiting, right-sided abdominal pain and back pain Special Instructions: Please follow-up with your primary care physician, power ballast machine operator and urologist for further evaluation. Diet Continue normal diet: Yes Recommended Diet: Regular Activity Activity Self Limited: Yes Acute Coronary Syndrome Inclusion Criteria At DC or during hospital stay patient has or had the following: ACS DIAGNOSIS No Discharge Core Measures Meds if any: Prescribed or Continued at Discharge Meds if any: NOT Prescribed or Continued at Discharge Congestive Heart Failure Inclusion Criteria At DC or during hospital stay patient has or had the following: CHF DIAGNOSIS No Discharge Core Measures Meds if any: Prescribed or Continued at Discharge Meds if any: NOT Prescribed or Continued at Discharge Cerebrovascular accident Inclusion Criteria At DC or during hospital stay patient has or had the following: CVA/TIA Diagnosis No Discharge Core Measures Meds if any: Prescribed or Continued at Discharge Meds if any: NOT Prescribed or Continued at Discharge Venous thromboembolism Inclusion Criteria VTE Diagnosis No VTE Type NONE VTE Confirmed by (Test) NONE Discharge Core Measures - Per Current guidelines, there needs to be overlap - treatment for the first 5 days of Warfarin therapy. - If discharged on Warfarin prior to 5 days of - overlap therapy, the patient will need to be - assessed for post discharge needs including - *Post discharge parental anticoagulation - *Warfarin and/or parental anticoagulation education - *Follow up date to check INR post discharge At least 5 days overlap therapy as Inpatient No Meds if any: Prescribed or Continued at Discharge Note: Overlap Therapy is Warfarin and Anticoagulant Meds if any: NOT Prescribed or Continued at Discharge
[2016-07-15 17:07] VITALS: BP 98/64
[2016-07-16] VITALS: BP 100/50
[2016-07-16 07:52] VITALS: BP 102/78
--- NOTE | 2016-07-16 10:59 | PN- Housestaff ---
EMILY BEEBE,[facility] 07/16/16 1059: Subjective Follow-up For: Intractable abdominal pain Nausea and vomiting Back pain Possible Crohn's flare Subjective: Patient seen and examined this morning. She was lying in bed in no acute distress. He is complaining of itching at the port site. She has been able to keep some full liquid diet down. She complains of ongoing nausea. Remains afebrile, endoscopy did not show any acute findings. Renal US did not show any acute findings. Review of Systems Constitutional: Denies: chills, fever. Cardiovascular: Denies: chest pain, palpitations. Respiratory: Denies: cough, short of breath. Gastrointestinal: Reports: see HPI, abdominal pain, constipation, nausea, vomiting. Denies: diarrhea. Genitourinary: Denies: dysuria, frequency. Objective Last 24 Hrs of Vital Signs/I&O Vital Signs Date Time Temp Pulse Resp B/P Pulse O2 O2 Flow FiO2 Ox Delivery Rate 07/16 0752 98.2 71 20 102/78 95 Room Air 07/16 0000 98.0 70 20 100/50 95 Room Air 07/15 1707 98.3 71 18 98/64 95 Intake & Output 07/16 1600 07/16 0800 07/16 0000 Intake Total 840 800 Output Total 450 500 Balance 390 300 Intake, IV 600 300 Intake, Oral 240 500 Number 0 0 Bowel Movements Output, Urine 450 500 Physical Exam General Appearance: Alert, Oriented X3, Cooperative, No Acute Distress Cardiovascular: Regular Rate, Normal S1, Normal S2, No Murmurs Lungs: Clear to Auscultation, Normal Air Movement Abdomen: Normal Bowel Sounds, Soft, rlq tendernss Extremities: No Clubbing, No Cyanosis, No Edema Current Medications: Current Medications Sig/Elise Start time Last Medication Dose Route Stop Time Status Admin Acetaminophen 650 MG Q6P PRN 07/10 1630 AC PO Alprazolam 0.5 MG TID PRN 07/10 1730 AC 07/14 PO 07/17 1729 1637 Buprenorphine/ 1 TAB Q6 PRN 07/10 1730 AC Naloxone SL Dicyclomine HCl 20 MG 4 TIMES/DAY PRN 07/11 1300 AC 07/13 PO 0242 Enoxaparin Sodium 40 MG DAILY 07/10 1618 AC 07/16 SC 0940 Escitalopram Oxalate 10 MG QPM 07/10 2200 AC 07/15 PO 2225 Hydromorphone HCl 0.6 MG Q4-6 PRN PRN 07/15 1915 AC 07/16 IV 07/17 1916 1458 Hydromorphone HCl 4 MG Q4P PRN 07/15 1145 AC 07/15 PO 1401 Hydroxyzine HCl 10 MG ONCE ONE 07/16 1445 DC PO 07/16 1446 Lidocaine 1 PAT Q24H PRN 07/10 1630 AC 07/15 EXT 0854 Magnesium Hydroxide 30 ML AT BEDTIME PRN 07/15 1000 AC PO Omeprazole 40 MG BID 07/12 2200 AC 07/15 PO 2225 Polyethylene Glycol 17 GM DAILY 07/15 1000 AC 07/16 PO 0938 Promethazine HCl 25 MG .STK-MED ONE 07/15 223 DC IM 07/15 223 Promethazine HCl 12.5 MG Q4P PRN 07/13 220 AC 07/16 IV 07/20 215 1458 Senna 187 MG AT BEDTIME 07/15 220 AC 07/15 PO 2225 Sodium Chloride 1,000 ML Q13H 07/11 0445 AC 07/16 IV 1449 Assessment/Plan Assessment: This is a 41-year-old female with past medical history of Crohn's disease( multiple flares currently on Remicade infusions every 6 weeks, last one was in June 18) , recurrent UTIs, endometriosis complicated by additions for which she underwent adhesion lysis and hysterectomy. Her vital signs on admission were temperature 98.2, pulse 107, respiratory rate 18, blood pressure 141/97, pulse ox 97 on room air. Admission labs were WBC count 9.1, hemoglobin 11.4, hematocrit 32.9, platelet count 267, sodium 138, potassium 4.3, BUN 12, creatinine 0.8, normal LFTs, amylase and lipase. CT lumbar spine showed central and left paracentral disc protrusion compressing the thecal sac at L5 and S1 and impingement on the traversing S1 nerve roots bilaterally. Will admit the patient and monitor for the following conditions: Right sided abdomen/back pain: Etiology at the moment unclear, likely due to underlying Crohn's disease versus C. difficile colitis(patient has history of recent recurrent antibiotic use) versus nephrolithiasis, cystitis, versus chronic pain syndrome Pain management with Dilaudid and Suboxone IV Phenergan for nausea and vomiting as needed * Endoscopy was done 07/14 did not reveal any acute findings. He does have some gastroparesis for which Reglan was suggested by GI but patient is still reluctant to take it. * Per GI, although Crohn's flare is a possibility her symptoms are atypical of her prior flares. Small bowel obstruction secondary to adhesions from her hysterectomy is also a possibility but unlikely given the atypical location of the pain and lack of obstructive symptoms. Vomiting is most likely related to the narcotics although it could be from underlying gastroparesis, GERD or a possible Crohn's flare. * Renal ultrasound did not show any acute findings. * Continue anti-spasmodic bentyl 20 mg QID PRN for abdominal pain. * Cont Prilosec 40 mg PO QD for possible GERD. * Per GI, patient can be discharged home with outpatient GI follow-up within a few days if she is ablepursued to look for more objective evidence of a Crohn's flare which may benefit from steroid therapy. * UA did not show any evidence of urinary tract infection, urine culture no growth * Pain control with by mouth Dilaudid or mg Q4P. * Is currently on full liquid diet. Advance as tolerated. Back pain : CT scan showed evidence of central and left paracentral disc protrusion compressing the thecal sac at L5 and S1 and impingement on the traversing S1 nerve roots bilaterally. * Per ortho, the CT scan finding is incidental and no intervention is warranted at this time. If she develops any lower extremity symptoms an MRI can be considered for further evaluation. Will continue regular diet DVT prophylaxis with Lovenox Patient is full code Problem List: 1. Crohns disease 2. Intractable abdominal pain 3. Nausea & vomiting Pain Ratin Pain Location: Abdomen Pain Goal: Remain pain free Pain Plan: Dilaudid 4 mg by mouth every 4 hours Tomorrow's Labs & Rationales: None GELY BEEBE,GINGER 07/16/16 1634: Attending MD Review Statement Attending Statement Attending MD Statement: examined this patient, discuss w/resident/PA/REPAIR TECH, agreed w/resident/PA/REPAIR TECH, reviewed EMR data (avail), discussed with nursing, discussed with case mgmt, amended to note Attending Assessment/Plan: Patient seen and examined. Lying comfortably in bed utilizing her laptop at the bedside. Afebrile hemodynamically stable. She continues to complain of nausea and inability to keep food down. She reports that she is unable to tolerate anything orally. She had been transitioned to oral Dilaudid yesterday however night she insisted on receiving IV Dilaudid and was transition back to IV overnight. She continues to receive Phenergan IV as antiemetic therapy. I did explain to her that I discussed the case with the gastroenterology service here at [facility]. There is no clear explanation of her recurrent nausea and inability to keep food down. She did request transferring to [facility] under the care of her studio assistant Dr. Cisco Adrian. I did explain that there was no indication for transfer. I did speak with her studio assistant who stated that there is no indication for transfer and the patient could follow-up with him as an outpatient tomorrow. Patient refuses this option of care insisted rather than remain in the hospital and continuing to receive IV narcotics and IV antiemetic therapy. Recommendations: -Follow recommendations of the gastroenterology service today. -If no further recommendations for inpatient medical management will again try to transition patient to oral medical therapy. -Repeat serum chemistry tomorrow to ensure stability of electrolytes.
[2016-07-16 15:49] VITALS: BP 104/78
[2016-07-17 00:22] VITALS: BP 102/70
--- NOTE | 2016-07-17 07:34 | PN- Housestaff ---
EMILY BEEBE,[facility] 07/17/16 0734: Subjective Follow-up For: Intractable abdominal pain Nausea and vomiting Back pain Possible Crohn's flare Subjective: Patient seen and examined this morning. She was lying in bed in no acute distress. She had no new complaints. She has been able to keep some full liquid diet down, was advanced to regular. She complains of ongoing nausea. Remains afebrile, endoscopy did not show any acute findings. Renal US did not show any acute findings. She is agreeable to switch to by mouth Dilaudid and Phenergan. Review of Systems Constitutional: Denies: chills, fever. Cardiovascular: Denies: chest pain, palpitations. Respiratory: Denies: cough, short of breath, sputum production. Gastrointestinal: Reports: see HPI, abdominal pain, nausea. Denies: constipation, diarrhea, vomiting. Genitourinary: Denies: dysuria, frequency. Objective Last 24 Hrs of Vital Signs/I&O Vital Signs Date Time Temp Pulse Resp B/P Pulse O2 O2 Flow FiO2 Ox Delivery Rate 07/17 0818 98.0 68 20 112/80 94 Room Air 07/17 0022 98.3 68 20 102/70 96 07/16 1549 98.7 71 18 104/78 96 Intake & Output 07/17 1600 07/17 0800 07/17 0000 Intake Total 600 500 Output Total 400 Balance 600 100 Intake, IV 600 300 Intake, Oral 200 Output, Urine 400 Physical Exam General Appearance: Alert, Oriented X3, Cooperative Cardiovascular: Regular Rate, Normal S1, Normal S2, No Murmurs Lungs: Clear to Auscultation, Normal Air Movement Abdomen: Normal Bowel Sounds, Soft, tenderness in right lower quadrant Extremities: No Clubbing, No Cyanosis, No Edema Current Medications: Current Medications Sig/Elise Start time Last Medication Dose Route Stop Time Status Admin Acetaminophen 650 MG Q6P PRN 07/10 1630 AC PO Alprazolam 0.5 MG TID PRN 07/10 1730 AC 07/14 PO 07/17 1729 1637 Buprenorphine/ 1 TAB Q6 PRN 07/10 1730 AC Naloxone SL Dicyclomine HCl 20 MG 4 TIMES/DAY PRN 07/11 1300 AC 07/13 PO 0242 Enoxaparin Sodium 40 MG DAILY 07/10 1618 AC 07/16 SC 0940 Escitalopram Oxalate 10 MG QPM 07/10 2200 AC 07/16 PO 2230 Hydromorphone HCl 0.6 MG Q4-6 PRN PRN 07/15 1915 DC 07/17 IV 07/17 1916 0516 Hydromorphone HCl 4 MG Q4P PRN 07/15 1145 AC 07/15 PO 1401 Hydroxyzine HCl 10 MG ONCE ONE 07/16 1445 DC 07/16 PO 07/16 1446 1615 Lidocaine 1 PAT Q24H PRN 07/10 1630 AC 07/16 EXT 1950 Magnesium Hydroxide 30 ML AT BEDTIME PRN 07/15 1000 AC PO Omeprazole 40 MG BID 07/12 2200 AC 07/16 PO 2230 Polyethylene Glycol 17 GM DAILY 07/15 1000 AC 07/16 PO 0938 Promethazine HCl 25 MG Q4P PRN 07/17 0845 AC PO 07/24 0844 Promethazine HCl 25 MG .STK-MED ONE 07/16 2346 DC IM 07/16 2347 Promethazine HCl 25 MG .STK-MED ONE 07/16 1937 DC IM 07/16 1938 Promethazine HCl 12.5 MG Q4P PRN 07/13 2200 AC 07/17 IV 07/17 1000 0522 Senna 187 MG AT BEDTIME 07/15 2200 AC 07/16 PO 2230 Sodium Chloride 1,000 ML Q13H 07/11 0445 AC 07/17 IV 0602 Last 24 Hrs of Lab/Junaid Results Last 24 Hrs of Labs/Mics: Laboratory Tests 07/17/16 0630: Anion Gap 8, Estimated GFR > 60, BUN/Creatinine Ratio 5.7 L Assessment/Plan Assessment: This is a 41-year-old female with past medical history of Crohn's disease( multiple flares currently on Remicade infusions every 6 weeks, last one was in June 18) , recurrent UTIs, endometriosis complicated by additions for which she underwent adhesion lysis and hysterectomy. Her vital signs on admission were temperature 98.2, pulse 107, respiratory rate 18, blood pressure 141/97, pulse ox 97 on room air. Admission labs were WBC count 9.1, hemoglobin 11.4, hematocrit 32.9, platelet count 267, sodium 138, potassium 4.3, BUN 12, creatinine 0.8, normal LFTs, amylase and lipase. CT lumbar spine showed central and left paracentral disc protrusion compressing the thecal sac at L5 and S1 and impingement on the traversing S1 nerve roots bilaterally. Will admit the patient and monitor for the following conditions: Right sided abdomen/back pain: Etiology at the moment unclear, likely due to underlying Crohn's disease versus C. difficile colitis(patient has history of recent recurrent antibiotic use) versus nephrolithiasis, cystitis, versus chronic pain syndrome Pain management with Dilaudid and Suboxone IV Phenergan for nausea and vomiting as needed * Endoscopy was done 07/14 did not reveal any acute findings. He does have some gastroparesis for which Reglan was suggested by GI but patient is still reluctant to take it. * Per GI, although Crohn's flare is a possibility her symptoms are atypical of her prior flares. Small bowel obstruction secondary to adhesions from her hysterectomy is also a possibility but unlikely given the atypical location of the pain and lack of obstructive symptoms. Vomiting is most likely related to the narcotics although it could be from underlying gastroparesis, GERD or a possible Crohn's flare. * Renal ultrasound did not show any acute findings. * Continue anti-spasmodic bentyl 20 mg QID PRN for abdominal pain. * Cont Prilosec 40 mg PO QD for possible GERD. * Per GI, patient can be discharged home with outpatient GI follow-up within a few days if she is ablepursued to look for more objective evidence of a Crohn's flare which may benefit from steroid therapy. * UA did not show any evidence of urinary tract infection, urine culture no growth * Pain control with by mouth Dilaudid or mg Q4P. * Is currently on full liquid diet. Will Advance as tolerated. Back pain : CT scan showed evidence of central and left paracentral disc protrusion compressing the thecal sac at L5 and S1 and impingement on the traversing S1 nerve roots bilaterally. * Per ortho, the CT scan finding is incidental and no intervention is warranted at this time. If she develops any lower extremity symptoms an MRI can be considered for further evaluation. Will continue regular diet DVT prophylaxis with Lovenox Patient is full code Problem List: 1. Nausea & vomiting 2. Crohns disease 3. Intractable abdominal pain Pain Ratin Pain Location: Abdomen Pain Goal: Remain pain free Pain Plan: Dilaudid 4 mg every 4 hours by mouth Tomorrow's Labs & Rationales: None GINGER HONG MD 12/30/16 1514: Attending MD Review Statement Attending Statement Attending MD Statement: examined this patient, discuss w/resident/PA/DENSITY CONTROL PUNCHER, agreed w/resident/PA/DENSITY CONTROL PUNCHER, reviewed EMR data (avail), discussed with nursing, discussed with case mgmt, amended to note Attending Assessment/Plan: Patient seen and examined. Lying comfortably in bed this 1 and not in any acute distress. She reports no issues overnight. We discussed transitioning to oral analgesics and antiemetic therapy and discharge her later today. When we evaluated at this morning she had completed her breakfast and appeared very comfortable. She was smiling and in agreement to be discharged home. Later on in the morning nursing staff reports that patient stated she had vomited. Nursing staff reported that her vomitus consisted of ground crackles. Patient was reevaluated. She again appeared comfortable however emotionally any distress. She appears very anxious about going home. She denies any family situations barring invasive discharge home. She reports that she is fearful that she'll be unable to tolerate oral intake. She declined take any lunch due to fear of vomiting. Patient is requesting to be placed on TPN. Problems: 1. Recurrent vomiting 2. Nonspecific generalized abdominal pain. 3. Chronic pain syndrome on Suboxone and dilaudid at home. 4. History of Crohn's disease with no evidence of acute flareup at present 5. Gastroparesis Plan: -Continue antiemetic therapy with Phenergan. -Continue analgesic therapy with Dilaudid. Would avoid administering IV medications. -Obtain psychiatric consultation to rule out any underlying psychiatric condition that may be contributing to her current state. -Please recall the gastroenterology service for any further recommendations about her recurrent vomiting.
[2016-07-17 08:18] VITALS: BP 112/80
[2016-07-17 16:14] VITALS: BP 114/78
--- NOTE | 2016-07-17 17:22 | Event Note ---
Event Note Event Note: Just prior to discharge patient started getting nauseated and reported vomiting after eating, GI was consulted for her persistent nausea and not being able to keep anything down. She has had endoscopy done upon this admission which did not show any acute findings. We have placed psychiatry consult, will follow up recommendations. She has had endoscopy done upon this admission which did not show any acute findings. We have placed psychiatry consult, will follow up recommendations.
--- NOTE | 2016-07-17 18:01 | PN- Gastroenterology ---
Assessment/Plan Assessment/Recommendations: Crohn's disease, apparently well controlled over the past 1-1/2 years on Remicade. Chronic pain syndrome, with exacerbation. In addition, intermittent nausea, with at least a component of gastroparesis, now with exacerbation secondary to narcotics. Discussion was held with the patient's senior data mining analyst, Dr. Walker. She is admitted every couple of months to [facility] for similar presentations to now. She is treated with intravenous narcotics, eventually changed to oral when she is "ready." In addition she is treated with antiemetics. This has been cyclical over the past couple of years. Generally the etiology of the pain is not determined, and this attributed to a chronic pain syndrome. As an outpatient she is on Suboxone, with Dilaudid for breakthrough, prescribed by a psychiatrist and not a painter touch up. According to the patient she has been on multiple neuromodulators without beneficial effect. Recommendations * Stop promethazine * Begin a combination of IV Reglan (she agrees to try) prior to meals, IV Benadryl, and ODT ondansetron. This should not be when necessary, but around- the-clock. * Consider fentanyl patch/lollipops * Discuss with pharmacy the availability of intravenous acetaminophen, to replace narcotics; if narcotics can be decreased or stopped, nausea may brayden, and she can eat and be discharged. She can then resume outpatient Suboxone. * Consider pain management consultation. * Would not begin TPN Subjective Subjective: Continues to have abdominal pain, mostly left lower quadrant radiating across abdomen. Intermittent nausea and vomiting, with intolerance to full liquids. Objective Vital Signs and I&Os Vital Signs Date Time Temp Pulse Resp B/P Pulse O2 O2 Flow FiO2 Ox Delivery Rate 07/17 1614 98.5 88 20 114/78 96 07/17 0818 98.0 68 20 112/80 94 Room Air 07/17 0022 98.3 68 20 102/70 96 Intake & Output 07/17 1600 07/17 0400 07/16 1600 07/16 04007/15 1600 07/15 040 Intake Total 3571 703 2071 800 2300 1525 Output Total 744 193 1342 285 710 8996 Balance 899 100 048 250 1667 425 Intake, IV 118 534 6396 300 1400 525 Intake, Oral 800 200 490 400 593 0368 Number 0 0 0 0 Bowel Movements Output, 1 50 Emesis Output, Urine 563 852 4976 366 271 7930 Physical Exam: Abdomen is soft and nondistended. There is subjective tenderness diffusely. Current Medications: Current Medications Sig/Elise Start time Last Medication Dose Route Stop Time Status Admin Acetaminophen 650 MG Q6P PRN 07/10 1630 AC PO Alprazolam 0.5 MG TID PRN 07/10 1730 DC 07/14 PO 07/17 1729 1637 Buprenorphine/ 1 TAB Q6 PRN 07/10 1730 AC 07/17 Naloxone SL 1240 Dicyclomine HCl 20 MG 4 TIMES/DAY PRN 07/11 1300 AC 07/13 PO 0242 Enoxaparin Sodium 40 MG DAILY 07/10 1618 AC 07/17 SC 0909 Escitalopram Oxalate 10 MG QPM 07/10 2200 AC 07/16 PO 2230 Heparin Sodium 500 UNIT ONCE ONE 07/17 1545 DC 07/17 (Porcine) IV 07/17 1546 1544 Hydromorphone HCl 0.6 MG Q4-6 PRN PRN 07/15 1915 DC 07/17 IV 07/17 1916 0516 Hydromorphone HCl 4 MG Q4P PRN 07/15 1145 AC 07/17 PO 0909 Lidocaine 1 PAT Q24H PRN 07/10 1630 AC 07/16 EXT 1950 Magnesium Hydroxide 30 ML AT BEDTIME PRN 07/15 1000 AC PO Omeprazole 40 MG BID 07/12 2200 AC 07/17 PO 0909 Polyethylene Glycol 17 GM DAILY 07/15 1000 AC 07/16 PO 0938 Promethazine HCl 25 MG Q4P PRN 07/17 0845 AC 07/17 PO 07/24 0844 1343 Promethazine HCl 25 MG .STK-MED ONE 07/16 2346 DC IM 07/16 2347 Promethazine HCl 25 MG .STK-MED ONE 07/16 1937 DC IM 07/16 1938 Promethazine HCl 12.5 MG Q4P PRN 07/13 2200 DC 07/17 IV 07/17 1000 0909 Senna 187 MG AT BEDTIME 07/15 2200 AC 07/16 PO 2230 Sodium Chloride 1,000 ML Q13H 07/11 0445 DC 07/17 IV 0602 Results Pertinent Lab Results: Laboratory Tests 07/17 0630 Chemistry Sodium (137 - 145 mmol/L) 139 Potassium (3.5 - 5.1 mmol/L) 3.6 Chloride (98 - 107 mmol/L) 104 Carbon Dioxide (22 - 30 mmol/L) 26 Anion Gap (5 - 16) 8 BUN (7 - 17 mg/dL) 4 L Creatinine (0.5 - 1.0 mg/dL) 0.7 Estimated GFR (>60 ml/min) > 60 BUN/Creatinine Ratio (7 - 25 %) 5.7 L
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
[2016-07-18 00:39] VITALS: BP 120/88
[2016-07-18 06:48] VITALS: BP 108/62
--- NOTE | 2016-07-18 08:25 | PN- Housestaff ---
EMILY BEEBE,[facility] 07/18/16 0824: Subjective Follow-up For: Intractable abdominal pain Nausea and vomiting Back pain Possible Crohn's flare Subjective: Patient seen and examined this morning. She still complains of ongoing nausea and vomiting and states that she is not able to keep anything down. Remains afebrile, endoscopy did not show any acute findings. Renal US did not show any acute findings. Review of Systems Constitutional: Reports: see HPI. Objective Last 24 Hrs of Vital Signs/I&O Vital Signs Date Time Temp Pulse Resp B/P Pulse O2 O2 Flow FiO2 Ox Delivery Rate 07/18 0648 98.3 74 20 108/62 96 Room Air 07/18 0039 98.4 87 20 120/88 96 Room Air 07/17 1614 98.5 88 20 114/78 96 Intake & Output 07/18 1600 07/18 0800 07/18 0000 Intake Total 240 500 Output Total 300 550 Balance -60 -50 Intake, Oral 240 500 Number 2 1 Bowel Movements Output, Urine 300 550 Physical Exam General Appearance: Alert, Oriented X3, Cooperative Cardiovascular: Regular Rate, Normal S1, Normal S2 Lungs: Clear to Auscultation, Normal Air Movement Abdomen: Normal Bowel Sounds, Soft, No Tenderness Extremities: No Clubbing, No Cyanosis, No Edema, Normal Pulses Current Medications: Current Medications Sig/Elise Start time Last Medication Dose Route Stop Time Status Admin Acetaminophen 650 MG Q6P PRN 07/10 1630 AC PO Alprazolam 0.5 MG TIDPRN PRN 07/18 0245 AC 07/18 PO 07/25 0244 0641 Alprazolam 0.5 MG TID PRN 07/10 1730 DC 07/14 PO 07/17 1729 1637 Buprenorphine/ 1 TAB Q6 PRN 07/18 1200 DC 07/18 Naloxone SL 1127 Buprenorphine/ 1 TAB Q4 PRN 07/18 1031 DC Naloxone SL Buprenorphine/ 1 TAB Q6 PRN 07/10 1730 DC 07/18 Naloxone SL 0033 Dicyclomine HCl 20 MG 4 TIMES/DAY PRN 07/11 1300 AC 07/13 PO 0242 Diphenhydramine HCl 25 MG ONCE ONE 07/18 1030 DC 07/18 IV 07/18 1031 1127 Diphenhydramine HCl 25 MG AC 07/18 0700 AC 07/18 IV 0214 Enoxaparin Sodium 40 MG DAILY 07/10 1618 AC 07/17 SC 0909 Escitalopram Oxalate 10 MG QPM 07/10 2200 AC 07/17 PO 2122 Heparin Sodium 500 UNIT ONCE ONE 07/17 1545 DC 07/17 (Porcine) IV 07/17 1546 1544 Hydromorphone HCl 0.6 MG Q4-6 PRN PRN 07/18 1200 AC IV 07/20 1201 Hydromorphone HCl 4 MG Q4P PRN 07/15 1145 AC 07/18 PO 0329 Lidocaine 1 PAT Q24H PRN 07/10 1630 AC 07/16 EXT 1950 Magnesium Hydroxide 30 ML AT BEDTIME PRN 07/15 1000 AC PO Metoclopramide HCl 10 MG AC 07/18 0700 AC 07/18 IV 1127 Omeprazole 40 MG BID 07/12 2200 AC 07/17 PO 2121 Ondansetron HCl 4 MG AC 07/18 0700 DC PO Ondansetron HCl 4 MG AC PRN 07/18 0000 DC PO Ondansetron HCl 4 MG AC PRN 07/17 2130 AC 07/18 PO 0458 Polyethylene Glycol 17 GM DAILY 07/15 1000 AC 07/16 PO 0938 Promethazine HCl 25 MG ONCE ONE 07/18 0100 DC PO 07/18 0101 Promethazine HCl 25 MG Q4P PRN 07/17 0845 DC 07/17 PO 07/24 0844 1343 Promethazine HCl 12.5 MG Q4P PRN 07/13 2200 DC 07/17 IV 07/17 1000 0909 Senna 187 MG AT BEDTIME 07/15 2200 AC 07/16 PO 2230 Assessment/Plan Assessment: This is a 41-year-old female with past medical history of Crohn's disease( multiple flares currently on Remicade infusions every 6 weeks, last one was in June 18) , recurrent UTIs, endometriosis complicated by additions for which she underwent adhesion lysis and hysterectomy. Her vital signs on admission were temperature 98.2, pulse 107, respiratory rate 18, blood pressure 141/97, pulse ox 97 on room air. Admission labs were WBC count 9.1, hemoglobin 11.4, hematocrit 32.9, platelet count 267, sodium 138, potassium 4.3, BUN 12, creatinine 0.8, normal LFTs, amylase and lipase. CT lumbar spine showed central and left paracentral disc protrusion compressing the thecal sac at L5 and S1 and impingement on the traversing S1 nerve roots bilaterally. Will admit the patient and monitor for the following conditions: Right sided abdomen/back pain: Etiology at the moment unclear, likely due to underlying Crohn's disease versus C. difficile colitis(patient has history of recent recurrent antibiotic use) versus nephrolithiasis, cystitis, versus chronic pain syndrome Pain management with IV Dilaudid as patient has been very reluctant to take anything else stating that she is allergic. He has recommended to start on IV Reglan, and IV Benadryl along with ondansetron. IV Phenergan for nausea and vomiting as needed * Endoscopy was done 07/14 did not reveal any acute findings. He does have some gastroparesis for which Reglan was suggested by GI but patient is still reluctant to take it. * Per GI, although Crohn's flare is a possibility her symptoms are atypical of her prior flares. Small bowel obstruction secondary to adhesions from her hysterectomy is also a possibility but unlikely given the atypical location of the pain and lack of obstructive symptoms. Vomiting is most likely related to the narcotics although it could be from underlying gastroparesis, GERD or a possible Crohn's flare. * Renal ultrasound did not show any acute findings. * Continue anti-spasmodic bentyl 20 mg QID PRN for abdominal pain. * Cont Prilosec 40 mg PO QD for possible GERD. * Per GI, patient can be discharged home with outpatient GI follow-up within a few days if she is ablepursued to look for more objective evidence of a Crohn's flare which may benefit from steroid therapy. * UA did not show any evidence of urinary tract infection, urine culture no growth * Pain control with by mouth Dilaudid or mg Q4P. * Is currently on full liquid diet. Will Advance as tolerated. Back pain : CT scan showed evidence of central and left paracentral disc protrusion compressing the thecal sac at L5 and S1 and impingement on the traversing S1 nerve roots bilaterally. * Per ortho, the CT scan finding is incidental and no intervention is warranted at this time. If she develops any lower extremity symptoms an MRI can be considered for further evaluation. Will continue regular diet DVT prophylaxis with Lovenox Patient is full code Problem List: 1. Nausea & vomiting Pain Ratin Pain Location: Abdomen Pain Goal: Remain pain free Pain Plan: iv dilaudid Tomorrow's Labs & Rationales: none GELY BEEBE,GINGER 07/18/16 1201: Attending MD Review Statement Attending Statement Attending MD Statement: examined this patient, discuss w/resident/PA/PURCHASING MANAGER/SALES, agreed w/resident/PA/PURCHASING MANAGER/SALES, discussed with family, reviewed EMR data (avail), discussed with nursing, discussed with case mgmt, amended to note Attending Assessment/Plan: Patient seen and examined. Mother present at the bedside. GI follow-up yesterday evening appreciated. Recommendations were to discontinue Dilaudid as it may be contributing to her nausea. Patient however was very upset about this and wants to remain on Dilaudid intravenously. She reports that she is unable to keep any food down. The GI service had recommended IV Reglan and IV Benadryl with meals however nursing staff reported that she was declining to received IV Reglan this morning. Patient was quite upset that she did not receive IV Dilaudid and contacted the nursing casino supervisor to notify her of her distress. Patient is requesting to take Suboxone has only alternative to IV Dilaudid. She does no want to try any other analgesic regimen. She did provide a bottle containing pills however the pharmacy here at [facility] reported that the are unable to confirm if this is indeed Suboxone. Review of the chronic of [facility] shows that she last refilled prescriptions for Suboxone in April for 30 day supply. She is sitting in bed and is up in acute painful distress. She however reports ongoing abdominal pain. She reports reluctance to try meals. She reports that she believes she has a rectal fissure and a flareup of her inflammatory bowel disease. Nurses have denied presence of blood in her stool. Patient also reports now that she has ulcerations in her esophagus although this was not reported in the EGD. Recommendations: -At this point as well unable to confirm if she is actively still on Suboxone and since we are unable to provide her with prescriptions upon discharge, will continue analgesic therapy with IV Dilaudid. Patient and mother understand that this medication milligrams continue to exacerbate her nausea and vomiting. -Antiemetic therapy with IV Reglan and IV Benadryl prior to meals as recommended by the gastroenterology service. -Check stool guaiac. -Encourage oral intake. -Psychiatric evaluation appreciated.
--- NOTE | 2016-07-18 15:43 | PN- Gastroenterology ---
Assessment/Plan Assessment/Recommendations: (*Extensive records reviewed) 41 y/o female with Crohn's disease, admitted 07/10/2016, with subjective right flank "pain," with imaging for a renal stone negative on 07/07/2016, although U/ A was suggestive of this. Repeat U/A- negative. She has seen innumerable gastroenterologists, most recently followed by Dr. Cisco Walker, in [facility], apparently well controlled over the past 1 & 1/2 years on Remicade Q 6 weeks. She has had prior proximal ascending colonic resection with ileo-colonic anastomosis. She has had hysterectomy, but ovaries are intact on TV sono. Chronic pain syndrome (?etiology), bulging disks, intermittent nausea, with a component of gastroparesis, exacerbated by narcotics. Possible component of GERD. The patient has underlying anxiety, depression, and PTSD. Psychiatry consult of 07/17/2016 appreciated. *The patient was requesting TPN, which is not medically indicated at this point, with normal albumin. She remains as an inpatient for subjective "pain". Dr. Pillo Perdomo has spoken with the patient's usual trouble lineman, Dr. Walker. The patient has been admitted to [facility] every couple of months for similar presentations. She was treated there with IV narcotics, eventually changed to oral when she is "ready". She has required antiemetics. She has been on outpatient Suboxone with Dilaudid for breakthrough , prescribed by a psychiatrist, not pain management. The patient's Crohn's disease itself clinically appears to be in remission. *Per orthopedics, the CT scan finding seems to be incidental regarding impingement of L5-S1 nerve roots, and they feel no further intervention is warranted at this time. 08/2008: Normal urine porphobilinogen. 01/2007: Normal trace elements (Zn/ Selenium) *The patient's current medical regimen as of 07/18/2016 includes Benadryl 25 mg IV ac, Reglan 10 mg IV ac, Zofran ODT 4 mg po ac, Senna, Dilaudid, magnesium, MiraLAX 17g daily, Omeprazole 40 mg po BID, Bentyl 20 mg 4x/day, Lexapro 10 mg Qpm, Tylenol, Lidocaine patch Q24h, Xanax, and DVT prophylaxis with Lovenox 40 mg sc daily. 07/07/2016: CT ABDOMEN AND PELVIS WITHOUT CONTRAST (renal colic protocol)- 1. No evidence of nephrolithiasis or obstructive uropathy. 2. Subtle aarti mesentery appearance of the small bowel mesentery, raising the suspicion of mild mesenteritis. Clinical correlation requested. 3. Postsurgical changes seen in the right colon. 4. Benign lytic lesion with sclerotic margins in the proximal right femur, possibly a bone cyst or benign fibrous lesion. 07/10/2016: CT LUMBAR SPINE WITHOUT CONTRAST- 1. There is a central and left paracentral disc protrusion compressing the thecal sac at L5-S1. There is impingement on the traversing S1 nerve roots bilaterally. 2. There is a broad-based posterior disc protrusion at L4-L5 extending into the inferior neural foramina bilaterally. There is no central stenosis. 07/13/2016: US TRANSVAGINAL- 1. Sonographically unremarkable bilateral ovaries. Specifically, the arterial as well as venous flow to both ovaries are well maintained. The possibility of intermittent torsion, as you know, cannot be excluded based on this imaging appearance alone. 2. Surgically absent uterus. 3. No evidence of any free fluid within the pelvis. 07/14/2016: US RETROPERITONEAL COMPLETE (RENAL)- Normal sonographic appearance of both kidneys. No renal calculi are seen. 07/14/2016: *EGD with biopsy per Dr. Brown- 1. Moderate nonerosive gastritis and suggestion of gastroparesis which was likely secondary to narcotics, s/p gastric biopsies- mild CAG/CFG without IM, HP -negative. 2. Grossly normal small bowel folds, s/p random biopsies- *normal villi. 3. Grossly normal esophagus and GE junction. *As of 07/18/2016, the patient appears to be in better spirits and is tolerating ice cream, muffins, and soup. The Reglan appears to be working. As per discussion with the patient's RN, there has been no witnessed vomiting or diarrhea (therefore, stool w/u not sent). *Uncertain if the above issues are chronic pain syndrome/drug-seeking/ malingering/subclinical flare of Crohn's/nephrolithiasis/cystitis/GERD/adhesions /narcotic-induced gastroparesis, etc. The patient wanted to remain on IV Dilaudid and contacted the nursing aerosol supervisor to notify her of this. She was previously told the Dilaudid could be exacerbating her nausea. She was requesting to take Suboxone as her only alternative to IV Dilaudid. She did not want to try any other analgesics. She brought in a bottle containing pills, but the [facility] pharmacy was unable to confirm if this was indeed Suboxone. The patient also claimed she has "ulcerations" in her esophagus, although none were seen on 07/14/2016: EGD. She reported subjective symptoms of pain. She now claims she has a rectal fissure. *Her labs are relatively stable, with chronic anemia, without change. SUGGEST: Advance diet as tolerated. Pain management consult. Try to transition to oral analgesics. Follow-up with psychiatry. Consider contacting risk management if more narcotics are needed. Antiemetic therapy (currently without EPS side effects), with IV Reglan and IV Benadryl. Empiric PPI. Antireflux measures. Lidocaine patch. Lexapro and Xanax per psychiatry. DVT prophylaxis. *Consider checking inflammatory markers (ESR/CRP). *Consider checking prealbumin. Problem List: 1. Crohns disease 2. Intractable abdominal pain 3. Nausea & vomiting 4. GERD (gastroesophageal reflux disease) 5. Back pain Subjective Subjective: (*Extensive records reviewed x 1/2 hour. The patient is being seen in GI coverage). As of 07/18/2016, the patient appears to be in better spirits and is tolerating ice cream, muffins, and soup. The Reglan appears to be working, without any EPS side effects. As per discussion with the patient's RN, there has been no witnessed vomiting or diarrhea (therefore, stool w/u not sent). The patient mentioned esophageal ulcers, but none were seen on the 07/14/2016: EGD. She also claims she now has a rectal fissure, and mentioned scant blood on the toilet paper after wiping, without spontaneous LGIB. She is still getting Dilaudid & spoke to the nursing aerosol supervisor regarding this. The patient remains hemodynamically stable and afebrile. She was seen in psychiatric consultation 07/17/2016. Review of Systems: Full 14 point ROS otherwise non-contributory & as above. Review of Systems Constitutional: Denies: chills, fever. Cardiovascular: Denies: chest pain, palpitations. Respiratory: Denies: cough, short of breath, sputum production. Gastrointestinal: Reports: see HPI, subjective abdominal "pain", nausea (improving on Reglan). *[No vomiting or diarrhea witnessed by RN]. Denies: constipation, obstipation, melena or significant BRBPR Genitourinary: Denies: dysuria, frequency, gross hematuria. Objective Vital Signs and I&Os Vital Signs Date Time Temp Pulse Resp B/P Pulse O2 O2 Flow FiO2 Ox Delivery Rate 07/18 0648 98.3 74 20 108/62 96 Room Air 07/18 0039 98.4 87 20 120/88 96 Room Air 07/17 1614 98.5 88 20 114/78 96 Intake & Output 07/18 1600 07/18 0400 07/17 1600 07/17 0400 07/16 1600 07/16 0400 Intake Total 673 229 3638 500 1690 800 Output Total 300 550 510 244 6354 500 Balance 540 -50 899 100 690 300 Intake, IV 100 663 203 1344 300 Intake, Oral 740 500 800 200 490 500 Number 2 1 0 0 0 Bowel Movements Output, 1 Emesis Output, Urine 300 550 644 859 3497 500 Physical Exam: Well-developed, well-nourished, pleasant female, in no apparent distress. The patient is in good spirits. Sclera anicteric. Conjunctiva pink. Oropharynx clear. No oral thrush. No aphthous ulcers. There is no adenopathy, thyromegaly, or JVD. No definite peripheral stigmata of inflammatory bowel disease or chronic liver disease on exam. No CVA tenderness. Lungs: clear to A &P. Heart exam: regular rate rhythm, S1 and S2, without any murmur. Abdominal exam: normal bowel sounds, soft belly, nontender, without guarding or rebound. No mass. No organomegaly. No fluid shift. No pulsatile mass. Old scars. Digital rectal exam: deferred. Extremities: without C, C, or E. No palpable cords. Rash. No acute arthropathy. Distal pulses 2+ bilaterally. DTRs 2+ bilaterally. Alert and oriented x 3. *No tremor or cogwheeling (on Reglan). Current Medications: Current Medications Sig/Elise Start time Last Medication Dose Route Stop Time Status Admin Acetaminophen 650 MG Q6P PRN 07/10 1630 AC PO Alprazolam 0.5 MG TIDPRN PRN 07/18 0245 AC 07/18 PO 07/25 0244 0641 Alprazolam 0.5 MG TID PRN 07/10 1730 DC 07/14 PO 07/17 1729 1637 Buprenorphine/ 1 TAB Q6 PRN 07/18 1200 DC 07/18 Naloxone SL 1127 Buprenorphine/ 1 TAB Q4 PRN 07/18 1031 DC Naloxone SL Buprenorphine/ 1 TAB Q6 PRN 07/10 1730 DC 07/18 Naloxone SL 0033 Dicyclomine HCl 20 MG 4 TIMES/DAY PRN 07/11 1300 AC 07/13 PO 0242 Diphenhydramine HCl 25 MG ONCE ONE 07/18 1030 DC 07/18 IV 07/18 1031 1127 Diphenhydramine HCl 25 MG AC 07/18 0700 AC 07/18 IV 0214 Enoxaparin Sodium 40 MG DAILY 07/10 1618 AC 07/17 SC 0909 Escitalopram Oxalate 10 MG QPM 07/10 2200 AC 07/17 PO 2122 Hydromorphone HCl 0.6 MG Q4-6 PRN PRN 07/18 1200 AC 07/18 IV 07/20 1201 1239 Hydromorphone HCl 4 MG Q4P PRN 07/15 1145 AC 07/18 PO 0329 Lidocaine 1 PAT Q24H PRN 07/10 1630 AC 07/16 EXT 1950 Magnesium Hydroxide 30 ML AT BEDTIME PRN 07/15 1000 AC PO Metoclopramide HCl 10 MG AC 07/18 0700 AC 07/18 IV 1127 Omeprazole 40 MG BID 07/12 2200 AC 07/17 PO 2121 Ondansetron HCl 4 MG AC 07/18 0700 DC PO Ondansetron HCl 4 MG AC PRN 07/18 0000 DC PO Ondansetron HCl 4 MG AC PRN 07/17 2130 AC 07/18 PO 0458 Polyethylene Glycol 17 GM DAILY 07/15 1000 AC 07/16 PO 0938 Promethazine HCl 25 MG ONCE ONE 07/18 0100 DC PO 07/18 0101 Promethazine HCl 25 MG Q4P PRN 07/17 0845 DC 07/17 PO 07/24 0844 1343 Senna 187 MG AT BEDTIME 07/15 2200 AC 07/16 PO 2230 Results Pertinent Lab Results: Laboratory Tests 07/17 630 Chemistry Sodium (137 - 145 mmol/L) 139 Potassium (3.5 - 5.1 mmol/L) 3.6 Chloride (98 - 107 mmol/L) 104 Carbon Dioxide (22 - 30 mmol/L) 26 Anion Gap (5 - 16) 8 BUN (7 - 17 mg/dL) 4 L Creatinine (0.5 - 1.0 mg/dL) 0.7 Estimated GFR (>60 ml/min) > 60 BUN/Creatinine Ratio (7 - 25 %) 5.7 L Imaging/Other Studies: 07/07/2016: CT ABDOMEN AND PELVIS WITHOUT CONTRAST (renal colic protocol)- 1. No evidence of nephrolithiasis or obstructive uropathy. 2. Subtle aarti mesentery appearance of the small bowel mesentery, raising the suspicion of mild mesenteritis. Clinical correlation requested. 3. Postsurgical changes seen in the right colon. 4. Benign lytic lesion with sclerotic margins in the proximal right femur, possibly a bone cyst or benign fibrous lesion. 07/10/2016: CT LUMBAR SPINE WITHOUT CONTRAST- 1. There is a central and left paracentral disc protrusion compressing the thecal sac at L5-S1. There is impingement on the traversing S1 nerve roots bilaterally. 2. There is a broad-based posterior disc protrusion at L4-L5 extending into the inferior neural foramina bilaterally. There is no central stenosis. 07/13/2016: US TRANSVAGINAL- 1. Sonographically unremarkable bilateral ovaries. Specifically, the arterial as well as venous flow to both ovaries are well maintained. The possibility of intermittent torsion, as you know, cannot be excluded based on this imaging appearance alone. 2. Surgically absent uterus. 3. No evidence of any free fluid within the pelvis. 07/14/2016: US RETROPERITONEAL COMPLETE (RENAL)- Normal sonographic appearance of both kidneys. No renal calculi are seen. 07/14/2016: *EGD with biopsy per Dr. Brown- 1. Moderate nonerosive gastritis and suggestion of gastroparesis which was likely secondary to narcotics, s/p gastric biopsies- mild CAG/CFG without IM, HP -negative. 2. Grossly normal small bowel folds, s/p random biopsies- *normal villi. 3. Grossly normal esophagus and GE junction. 07/14/2016: EKG- NSR @ 70, 1st degree AVB (NV .216), normal axis, NSST diffusely.
[2016-07-18 17:00] VITALS: BP 108/64
[2016-07-19 00:33] VITALS: BP 102/62
[2016-07-19 08:05] VITALS: BP 120/60; BP 1220/68
--- NOTE | 2016-07-19 08:40 | PN- Housestaff ---
See Addendum Subjective Follow-up For: abdominal pain Nausea and vomiting Back pain Subjective: Patient seen and examined this morning. She was lying in bed in no acute distress. She reported that she was able to tolerate dinner (she had a turkey sandwich) and was able to keep it down, but this morning she was nauseous again. Remains afebrile, otherwise is within normal limits. Other complaints Review of Systems Constitutional: Denies: chills, fever. Cardiovascular: Denies: chest pain, palpitations. Respiratory: Denies: cough, short of breath. Gastrointestinal: Reports: see HPI, abdominal pain, nausea. Denies: constipation, diarrhea, vomiting. Genitourinary: Denies: dysuria, frequency. Objective Last 24 Hrs of Vital Signs/I&O Vital Signs Date Time Temp Pulse Resp B/P Pulse O2 O2 Flow FiO2 Ox Delivery Rate 07/19 08 98.0 60 20 120/60 96 07/19 0033 97.9 79 20 102/62 97 07/18 1700 98.0 78 20 108/64 95 Intake & Output 07/19 1600 07/19 0800 07/19 0000 Intake Total 150 220 Output Total Balance 150 220 Intake, IV 20 Intake, Oral 150 200 Physical Exam General Appearance: Alert, Oriented X3, Cooperative, No Acute Distress Cardiovascular: Regular Rate, Normal S1, Normal S2, No Murmurs Lungs: Clear to Auscultation, Normal Air Movement Abdomen: Normal Bowel Sounds, Soft, tenderness in the right lower quardant Current Medications: Current Medications Sig/Elise Start time Last Medication Dose Route Stop Time Status Admin Acetaminophen 650 MG Q6P PRN 07/10 1630 AC 07/19 PO 0500 Alprazolam 0.5 MG TIDPRN PRN 07/18 0245 AC 07/19 PO 07/25 0244 0116 Buprenorphine/ 1 TAB Q6 PRN 07/18 1200 DC 07/18 Naloxone SL 1127 Dicyclomine HCl 20 MG 4 TIMES/DAY PRN 07/11 1300 AC 07/13 PO 0242 Diphenhydramine HCl 25 MG AC 07/18 0700 AC 07/19 IV 0710 Enoxaparin Sodium 40 MG DAILY 07/10 1618 AC 07/17 SC 0909 Escitalopram Oxalate 10 MG QPM 07/10 2200 AC 07/18 PO 2052 Hydromorphone HCl 0.6 MG Q4-6 PRN PRN 07/18 1200 AC 07/19 IV 07/20 1201 0947 Hydromorphone HCl 4 MG Q4P PRN 07/15 1145 AC 07/18 PO 0329 Lidocaine 1 PAT Q24H PRN 07/10 1630 AC 07/16 EXT 1950 Magnesium Hydroxide 30 ML AT BEDTIME PRN 07/15 1000 AC PO Metoclopramide HCl 10 MG AC 07/18 0700 AC 07/19 IV 0710 Omeprazole 40 MG BID 07/12 2200 AC 07/19 PO 0846 Ondansetron HCl 4 MG AC PRN 07/17 2130 AC 07/19 PO 0107 Polyethylene Glycol 17 GM DAILY 07/15 1000 AC 07/16 PO 0938 Senna 187 MG AT BEDTIME 07/15 2200 AC 07/18 PO 2052 Assessment/Plan Assessment: This is a 41-year-old female with past medical history of Crohn's disease( multiple flares currently on Remicade infusions every 6 weeks, last one was in June 18) , recurrent UTIs, endometriosis complicated by additions for which she underwent adhesion lysis and hysterectomy. Her vital signs on admission were temperature 98.2, pulse 107, respiratory rate 18, blood pressure 141/97, pulse ox 97 on room air. Admission labs were WBC count 9.1, hemoglobin 11.4, hematocrit 32.9, platelet count 267, sodium 138, potassium 4.3, BUN 12, creatinine 0.8, normal LFTs, amylase and lipase. CT lumbar spine showed central and left paracentral disc protrusion compressing the thecal sac at L5 and S1 and impingement on the traversing S1 nerve roots bilaterally. Will admit the patient and monitor for the following conditions: Right sided abdomen/back pain: Etiology at the moment unclear, likely due to underlying Crohn's disease versus C. difficile colitis(patient has history of recent recurrent antibiotic use) versus nephrolithiasis, cystitis, versus chronic pain syndrome Pain management with IV Dilaudid as patient has been very reluctant to take anything else stating that she is allergic. He has recommended to start on IV Reglan, and IV Benadryl along with ondansetron. IV Phenergan for nausea and vomiting as needed * Endoscopy was done 07/14 did not reveal any acute findings. He does have some gastroparesis for which Reglan was suggested by GI but patient is still reluctant to take it. * Per GI, her symptoms are atypical of her prior Crohn's flares. Small bowel obstruction secondary to adhesions from her hysterectomy is also a possibility but unlikely given the atypical location of the pain and lack of obstructive symptoms. Vomiting is most likely related to the narcotics although it could be from underlying gastroparesis, GERD. Extensive records have been reviewed by GI of past workup, GI suggested advance diet as tolerated, have pain management consult, psychiatry already on board and to get risk management . * Renal ultrasound did not show any acute findings. * Continue anti-spasmodic bentyl 20 mg QID PRN for abdominal pain. * Cont Prilosec 40 mg PO QD for possible GERD. * Per GI, patient can be discharged home with outpatient GI follow-up within a few days if she is ablepursued to look for more objective evidence of a Crohn's flare which may benefit from steroid therapy. * UA did not show any evidence of urinary tract infection, urine culture no growth * Pain control with by mouth Dilaudid or mg Q4P. * Is currently on full liquid diet. Will Advance as tolerated. Back pain : CT scan showed evidence of central and left paracentral disc protrusion compressing the thecal sac at L5 and S1 and impingement on the traversing S1 nerve roots bilaterally. * Per ortho, the CT scan finding is incidental and no intervention is warranted at this time. If she develops any lower extremity symptoms an MRI can be considered for further evaluation. Will continue regular diet DVT prophylaxis with Lovenox Patient is full code Problem List: 1. Nausea & vomiting 2. Crohns disease Pain Ratin Pain Location: Abdomen Pain Goal: Remain pain free Pain Plan: IV Dilaudid 0.6mg every 4 hours Tomorrow's Labs & Rationales: CBC H&H monitoring BEP for lites monitoring.
[2016-07-19 16:34] VITALS: BP 110/68
[2016-07-20 00:05] VITALS: BP 106/78
[2016-07-20 08:02] LABS: ABSOLUTE BASOPHIL COUNT 0.1 /CUMM (0.0-0.2); ABSOLUTE EOSINOPHIL COUNT 0.4 /CUMM (0.0-0.7); ABSOLUTE GRANULOCYTE CT 4.2 /CUMM (1.4-6.5); ABSOLUTE LYMPH COUNT 1.9 /CUMM (1.2-3.4); ABSOLUTE MONOCYTE COUNT 0.7 /CUMM (0.10-0.60); BASOPHIL % 0.8 % (0.0-2.0); EOSINOPHIL % 5.7 % (0-5); GRANULOCYTE % 56.7 % (42.2-75.2); MEAN CORPUSCULAR HGB 31.2 PG (27.0-31.0); MEAN CORPUSCULAR HGB CONC 34.5 G/DL (33.0-37.0); MEAN CORPUSCULAR VOLUME 90.5 FL (81.0-99.0); MEAN PLATELET VOLUME 8.5 FL (7.4-10.4); PLATELET COUNT 277 /CUMM (130-400); RBC DISTRIBUTION WIDTH 13.1 % (11.5-14.5); RED BLOOD CELL CT 3.63 /CUMM (4.20-5.40); WHITE BLOOD CELL COUNT 7.3 /CUMM (4.8-10.8)
[2016-07-20 08:18] VITALS: BP 100/78
--- NOTE | 2016-07-20 08:21 | PN- Housestaff ---
Subjective Follow-up For: nausea, vomiting, abdominal pain back pain Subjective: pt was seen this morning, she was lying comfortably on the bed. she reported nausea that again started last night, with dry heaves. she has been eating less since then. over the weekend, she also noted some red blood in her stool although all stool guaiac has been negative. she reports pain with BM and sitting, reports irritation around the anus. she notes hx of fissures due to crohn's. she also has pain across her belly just above the belly button , that is rated 6 /10, improves to 2/10 with dilaudid. back pain has resolved. she refused lovenox and alps. plan to discharge today. Review of Systems Constitutional: Reports: chills. Denies: fever. EENTM: Denies: visual changes. Cardiovascular: Denies: chest pain, palpitations. Respiratory: Denies: cough, short of breath. Gastrointestinal: Reports: abdominal pain, nausea, bloody stool. Denies: bloating, constipation, diarrhea, vomiting. Objective Last 24 Hrs of Vital Signs/I&O Vital Signs Date Time Temp Pulse Resp B/P Pulse O2 O2 Flow FiO2 Ox Delivery Rate 07/20 0818 98.5 74 20 100/78 97 Room Air 07/20 0005 98.0 75 20 106/78 96 07/19 1634 97.7 77 20 110/68 97 Intake & Output 07/20 1600 07/20 0800 07/20 0000 Intake Total 700 Output Total 0 Balance 700 Intake, Oral 700 Number 0 Bowel Movements Output, 0 Emesis Physical Exam General Appearance: Alert, Oriented X3, Cooperative, No Acute Distress Skin: No Significant Lesion HEENT: Atraumatic, PERRLA Neck: Supple Lymphatic: Axillary nl, Cervical nl Cardiovascular: Regular Rate, Normal S1, Normal S2, No Murmurs, Gallops, Rubs Lungs: Clear to Auscultation, Normal Air Movement Abdomen: Normal Bowel Sounds, Soft, mild tenderness across the abdomen above the belly button, and LLQ Neurological: Normal Speech Extremities: No Edema Current Medications: Current Medications Sig/Elise Start time Last Medication Dose Route Stop Time Status Admin Acetaminophen 650 MG Q6P PRN 07/10 1630 AC 07/19 PO 0500 Alprazolam 0.5 MG TIDPRN PRN 07/18 0245 AC 07/19 PO 07/25 0244 2128 Dicyclomine HCl 20 MG 4 TIMES/DAY PRN 07/11 1300 AC 07/13 PO 0242 Diphenhydramine HCl 25 MG AC 07/18 0700 AC 07/20 IV 1152 Enoxaparin Sodium 40 MG DAILY 07/10 1618 AC 07/17 SC 0909 Escitalopram Oxalate 10 MG QPM 07/10 2200 AC 07/19 PO 2128 Hydromorphone HCl 0.6 MG Q4-6 PRN PRN 07/18 1200 AC 07/20 IV 07/20 1201 1026 Hydromorphone HCl 4 MG Q4P PRN 07/15 1145 AC 07/18 PO 0329 Lidocaine 1 PAT Q24H PRN 07/10 1630 AC 07/20 EXT 0216 Magnesium Hydroxide 30 ML AT BEDTIME PRN 07/15 1000 AC PO Metoclopramide HCl 10 MG AC 07/18 0700 AC 07/20 IV 1152 Omeprazole 40 MG BID 07/120 AC 07/20 PO 0913 Ondansetron HCl 4 MG AC PRN 07/17 2130 AC 07/20 PO 0217 Polyethylene Glycol 17 GM DAILY 07/15 1000 AC 07/16 PO 0938 Senna 187 MG AT BEDTIME 07/15 2200 AC 07/19 PO 2128 Last 24 Hrs of Lab/Junaid Results Last 24 Hrs of Labs/Mics: Laboratory Tests 07/20/16 0733: Anion Gap 12, Estimated GFR > 60, BUN/Creatinine Ratio 18.8, CBC w Diff NO MAN DIFF REQ, RBC 3.63 L, MCV 90.5, MCH 31.2 H, RDW 13.1, MPV 8.5, Gran % 56.7, Lymphocytes % 26.6, Monocytes % 10.2 H, Eosinophils % 5.7 H, Basophils % 0.8, Absolute Granulocytes 4.2, Absolute Lymphocytes 1.9, Absolute Monocytes 0.7 H, Absolute Eosinophils 0.4, Absolute Basophils 0.1, PUBS MCHC 34.5 Assessment/Plan Assessment: This is a 41-year-old female with past medical history of Crohn's disease( multiple flares currently on Remicade infusions every 6 weeks, last one was in June 18) , recurrent UTIs, endometriosis complicated by additions for which she underwent adhesion lysis and hysterectomy. Her vital signs on admission were temperature 98.2, pulse 107, respiratory rate 18, blood pressure 141/97, pulse ox 97 on room air. Admission labs were WBC count 9.1, hemoglobin 11.4, hematocrit 32.9, platelet count 267, sodium 138, potassium 4.3, BUN 12, creatinine 0.8, normal LFTs, amylase and lipase. CT lumbar spine showed central and left paracentral disc protrusion compressing the thecal sac at L5 and S1 and impingement on the traversing S1 nerve roots bilaterally. Will admit the patient and monitor for the following conditions: Right sided abdomen/back pain: Etiology at the moment unclear, likely due to underlying Crohn's disease versus C. difficile colitis(patient has history of recent recurrent antibiotic use) versus nephrolithiasis, cystitis, versus chronic pain syndrome Pain management with IV Dilaudid as patient has been very reluctant to take anything else stating that she is allergic. He has recommended to start on IV Reglan, and IV Benadryl along with ondansetron. IV Phenergan for nausea and vomiting as needed * Endoscopy was done 07/14 did not reveal any acute findings. He does have some gastroparesis for which Reglan was suggested by GI but patient is still reluctant to take it. * Per GI, her symptoms are atypical of her prior Crohn's flares. Small bowel obstruction secondary to adhesions from her hysterectomy is also a possibility but unlikely given the atypical location of the pain and lack of obstructive symptoms. Vomiting is most likely related to the narcotics although it could be from underlying gastroparesis, GERD. Extensive records have been reviewed by GI of past workup, GI suggested advance diet as tolerated, have pain management consult, psychiatry already on board and to get risk management . * Renal ultrasound did not show any acute findings. * Continue anti-spasmodic bentyl 20 mg QID PRN for abdominal pain. * Cont Prilosec 40 mg PO QD for possible GERD. * Per GI, patient can be discharged home with outpatient GI follow-up within a few days if she is ablepursued to look for more objective evidence of a Crohn's flare which may benefit from steroid therapy. * UA did not show any evidence of urinary tract infection, urine culture no growth * Pain control with by mouth Dilaudid or mg Q4P. * Is currently on full liquid diet. Will Advance as tolerated. Back pain : CT scan showed evidence of central and left paracentral disc protrusion compressing the thecal sac at L5 and S1 and impingement on the traversing S1 nerve roots bilaterally. * Per ortho, the CT scan finding is incidental and no intervention is warranted at this time. If she develops any lower extremity symptoms an MRI can be considered for further evaluation. Will continue regular diet DVT prophylaxis with Lovenox Patient is full code Problem List: 1. Nausea & vomiting 2. Intractable abdominal pain Pain Ratin Pain Location: abdomen Pain Goal: Pain 4 or less Pain Plan: mod pp Tomorrow's Labs & Rationales: none DVT/Prophylaxis: mechanical, pharmacological
[2016-07-20 10:05] LABS: HEMATOCRIT 32.8 % (37-47)
--- NOTE | 2016-07-20 11:49 | PN- Gastroenterology ---
Assessment/Plan Assessment/Recommendations: (*Extensive records reviewed) 41 y/o female with Crohn's disease, admitted 07/10/2016, with subjective right flank "pain," with imaging for a renal stone negative on 07/07/2016, although U/ A was suggestive of this. Repeat U/A- negative. She has seen innumerable gastroenterologists, most recently followed by Dr. Cisco Walker, in [facility], apparently well controlled over the past 1 & 1/2 years on Remicade Q 6 weeks. She has had prior proximal ascending colonic resection with ileo-colonic anastomosis. She has had hysterectomy, but ovaries are intact on TV sono. Chronic pain syndrome (?etiology), bulging disks, intermittent nausea, with a component of gastroparesis, exacerbated by narcotics. Possible component of GERD. The patient has underlying anxiety, depression, and PTSD. Psychiatry notes appreciated. *The patient was requesting TPN, which is not medically indicated at this point, with normal albumin. She remains as an inpatient for subjective "pain". Dr. Pillo Perdomo has spoken with the patient's usual lead systems architect, Dr. Walker. The patient has been admitted to [facility] every couple of months for similar presentations. She was treated there with IV narcotics, eventually changed to oral when she is "ready". She has required antiemetics. She has been on outpatient Suboxone with Dilaudid for breakthrough , prescribed by a psychiatrist, not pain management. The patient's Crohn's disease itself clinically appears to be in remission. *Per orthopedics, the CT scan finding seems to be incidental regarding impingement of L5-S1 nerve roots, and they feel no further intervention is warranted at this time. 08/2008: Normal urine porphobilinogen. 01/2007: Normal trace elements (Zn/ Selenium) *The patient's current medical regimen as of 07/18/2016 includes Benadryl 25 mg IV ac, Reglan 10 mg IV ac, Zofran ODT 4 mg po ac, Senna, Dilaudid, magnesium, MiraLAX 17g daily, Omeprazole 40 mg po BID, Bentyl 20 mg 4x/day, Lexapro 10 mg Qpm, Tylenol, Lidocaine patch Q24h, Xanax, and DVT prophylaxis with Lovenox 40 mg sc daily. 07/07/2016: CT ABDOMEN AND PELVIS WITHOUT CONTRAST (renal colic protocol)- 1. No evidence of nephrolithiasis or obstructive uropathy. 2. Subtle aarti mesentery appearance of the small bowel mesentery, raising the suspicion of mild mesenteritis. Clinical correlation requested. 3. Postsurgical changes seen in the right colon. 4. Benign lytic lesion with sclerotic margins in the proximal right femur, possibly a bone cyst or benign fibrous lesion. 07/10/2016: CT LUMBAR SPINE WITHOUT CONTRAST- 1. There is a central and left paracentral disc protrusion compressing the thecal sac at L5-S1. There is impingement on the traversing S1 nerve roots bilaterally. 2. There is a broad-based posterior disc protrusion at L4-L5 extending into the inferior neural foramina bilaterally. There is no central stenosis. 07/13/2016: US TRANSVAGINAL- 1. Sonographically unremarkable bilateral ovaries. Specifically, the arterial as well as venous flow to both ovaries are well maintained. The possibility of intermittent torsion, as you know, cannot be excluded based on this imaging appearance alone. 2. Surgically absent uterus. 3. No evidence of any free fluid within the pelvis. 07/14/2016: US RETROPERITONEAL COMPLETE (RENAL)- Normal sonographic appearance of both kidneys. No renal calculi are seen. 07/14/2016: *EGD with biopsy per Dr. Brown- 1. Moderate nonerosive gastritis and suggestion of gastroparesis which was likely secondary to narcotics, s/p gastric biopsies- mild CAG/CFG without IM, HP -negative. 2. Grossly normal small bowel folds, s/p random biopsies- *normal villi. 3. Grossly normal esophagus and GE junction. *Uncertain if the above issues are chronic pain syndrome/drug-seeking/ malingering/subclinical flare of Crohn's/nephrolithiasis/cystitis/GERD/adhesions /narcotic-induced gastroparesis, etc. The patient wanted to remain on IV Dilaudid and contacted the nursing elementary supervisor to notify her of this. She was previously told the Dilaudid could be exacerbating her nausea. She is requesting to take Suboxone as her only alternative to IV Dilaudid. She did not want to try any other analgesics. She brought in a bottle containing pills, but the [place] pharmacy was unable to confirm if this was indeed Suboxone. The patient also claims she has "ulcerations" in her esophagus, although none were seen on 07/14/2016: EGD. She reports subjective symptoms of pain. She now claims she has a rectal fissure. *Her labs are relatively stable, with chronic anemia, without change. 07/18/2016: stool OB-negative x 2. As of 07/20/2016, the patient looks extremely comfortable. She ate a turkey sandwich uneventfully. She has subjective nausea, but again has had no witnessed vomiting or diarrhea. She has subjective "pain." When I asked her again about the transition to oral analgesics, she stated that she "wants to go home today and go back on her Suboxone." SUGGEST: Agree with discharge to home today. She is to follow-up with her usual lead systems architect, Dr. Cisco Walker. She claims that her next Remicade infusion is due in mid-07/2016, and Dr. Walker's office will be managing this. Consider outpatient Pain management consult. Follow-up with psychiatry. Consider contacting risk management, if patient remains in hospital. Antiemetic therapy (currently without EPS side effects), with Reglan, Zofran & Benadryl. Empiric PPI. Lidocaine patch. Lexapro and Xanax per psychiatry. *Consider checking inflammatory markers (ESR/CRP) and prealbumin, if patient remains as inpatient. There has been no objective evidence of a Crohn's flare. I informed Dr. Alejandre of the patient's desire to leave today, 07/20/2016, on her outpatient Suboxone. Will sign off. Problem List: 1. Crohns disease 2. Intractable abdominal pain 3. Nausea & vomiting 4. GERD (gastroesophageal reflux disease) 5. Back pain Subjective Subjective: *GI coverage- the patient was seen and examined. Chart was reviewed. The patient looks extremely comfortable. She is tolerating solids po. She kept down a turkey sandwich. Her labs are relatively stable. She has minimal subjective nausea, but remains without any witnessed vomiting or diarrhea. She is still on IV narcotics, although according to the chart, she was switched to po Dilaudid. She is watching a movie and is in no apparent distress. The patient remains hemodynamically stable and afebrile. 07/18/2016: stool OB- negative x 2. She has subjective "pain." When I asked her again about the transition to oral analgesics, she stated that she "wants to go home today and go back on her Suboxone." Review of Systems: Full 14 point ROS otherwise non-contributory & as above. Review of Systems Constitutional: Denies: chills, fever. Cardiovascular: Denies: chest pain, palpitations. Respiratory: Denies: cough, short of breath, sputum production. Gastrointestinal: Reports: see HPI, subjective abdominal "pain", nausea (improving on Reglan). *[No vomiting or diarrhea witnessed by RN]. Denies: constipation, obstipation, melena or significant BRBPR Genitourinary: Denies: dysuria, frequency, gross hematuria. Objective Vital Signs and I&Os Vital Signs Date Time Temp Pulse Resp B/P Pulse O2 O2 Flow FiO2 Ox Delivery Rate 07/20 0818 98.5 74 20 100/78 97 Room Air 07/20 0005 98.0 75 20 106/78 96 07/19 1634 97.7 77 20 110/68 97 Intake & Output 07/20 1600 07/20 0400 07/19 1600 07/19 0400 07/18 1600 07/18 0400 Intake Total 700 1000 220 840 500 Output Total 0 0 300 550 Balance 700 1000 220 540 -50 Intake, IV 150 20 100 Intake, Oral 700 850 200 740 500 Number 0 2 1 Bowel Movements Output, 0 0 Emesis Output, Urine 300 550 Physical Exam: Well-developed, well-nourished, pleasant female, in no apparent distress. The patient is in good spirits, watching TV. Sclera anicteric. Conjunctiva pink. Oropharynx clear. No oral thrush. No aphthous ulcers. There is no adenopathy, thyromegaly, or JVD. No definite peripheral stigmata of inflammatory bowel disease or chronic liver disease on exam. No CVA tenderness. Lungs: clear to A &P. Heart exam: regular rate rhythm, S1 and S2, without any murmur. Abdominal exam: normal bowel sounds, soft belly, nontender, without guarding or rebound. No mass. No organomegaly. No fluid shift. No pulsatile mass. Old scars. Digital rectal exam: deferred. Extremities: without C, C, or E. No palpable cords. Rash. No acute arthropathy. Distal pulses 2+ bilaterally. DTRs 2+ bilaterally. Alert and oriented x 3. *No tremor or cogwheeling (on Reglan). Current Medications: Current Medications Sig/Elise Start time Last Medication Dose Route Stop Time Status Admin Acetaminophen 650 MG Q6P PRN 07/10 1630 AC 07/19 PO 0500 Alprazolam 0.5 MG TIDPRN PRN 07/18 0245 AC 07/19 PO 07/25 0244 2128 Dicyclomine HCl 20 MG 4 TIMES/DAY PRN 07/11 1300 AC 07/13 PO 0242 Diphenhydramine HCl 25 MG AC 07/18 0700 AC 07/20 IV 1152 Enoxaparin Sodium 40 MG DAILY 07/10 1618 AC 07/17 SC 0909 Escitalopram Oxalate 10 MG QPM 07/10 2200 AC 07/19 PO 2128 Hydromorphone HCl 0.6 MG Q4-6 PRN PRN 07/18 1200 DC 07/20 IV 07/20 1201 1026 Hydromorphone HCl 4 MG Q4P PRN 07/15 1145 AC 07/18 PO 0329 Lidocaine 1 PAT Q24H PRN 07/10 1630 AC 07/20 EXT 0216 Magnesium Hydroxide 30 ML AT BEDTIME PRN 07/15 1000 AC PO Metoclopramide HCl 10 MG AC 07/18 0700 AC 07/20 IV 1152 Omeprazole 40 MG BID 07/12 2200 AC 07/20 PO 0913 Ondansetron HCl 4 MG AC PRN 07/17 2130 AC 07/20 PO 0217 Polyethylene Glycol 17 GM DAILY 07/15 1000 AC 07/16 PO 0938 Senna 187 MG AT BEDTIME 07/15 220 AC 07/19 PO 2128 Results Pertinent Lab Results: Laboratory Tests 07/20 732 Chemistry Sodium (137 - 145 mmol/L) 139 Potassium (3.5 - 5.1 mmol/L) 3.7 Chloride (98 - 107 mmol/L) 101 Carbon Dioxide (22 - 30 mmol/L) 26 Anion Gap (5 - 16) 12 BUN (7 - 17 mg/dL) 15 Creatinine (0.5 - 1.0 mg/dL) 0.8 Estimated GFR (>60 ml/min) > 60 BUN/Creatinine Ratio (7 - 25 %) 18.8 Hematology CBC w Diff NO MAN DIFF REQ WBC (4.8 - 10.8 /CUMM) 7.3 RBC (4.20 - 5.40 /CUMM) 3.63 L Hgb (12.0 - 16.0 G/DL) 11.3 L Hct (37 - 47 %) 32.8 L MCV (81.0 - 99.0 FL) 90.5 MCH (27.0 - 31.0 PG) 31.2 H RDW (11.5 - 14.5 %) 13.1 Plt Count (130 - 400 /CUMM) 277 MPV (7.4 - 10.4 FL) 8.5 Gran % (42.2 - 75.2 %) 56.7 Lymphocytes % (20.5 - 51.1 %) 26.6 Monocytes % (1.7 - 9.3 %) 10.2 H Eosinophils % (0 - 5 %) 5.7 H Basophils % (0.0 - 2.0 %) 0.8 Absolute Granulocytes (1.4 - 6.5 /CUMM) 4.2 Absolute Lymphocytes (1.2 - 3.4 /CUMM) 1.9 Absolute Monocytes (0.10 - 0.60 /CUMM) 0.7 H Absolute Eosinophils (0.0 - 0.7 /CUMM) 0.4 Absolute Basophils (0.0 - 0.2 /CUMM) 0.1 PUBS MCHC (33.0 - 37.0 G/DL) 34.5 Imaging/Other Studies: 07/07/2016: CT ABDOMEN AND PELVIS WITHOUT CONTRAST (renal colic protocol)- 1. No evidence of nephrolithiasis or obstructive uropathy. 2. Subtle aarti mesentery appearance of the small bowel mesentery, raising the suspicion of mild mesenteritis. Clinical correlation requested. 3. Postsurgical changes seen in the right colon. 4. Benign lytic lesion with sclerotic margins in the proximal right femur, possibly a bone cyst or benign fibrous lesion. 07/10/2016: CT LUMBAR SPINE WITHOUT CONTRAST- 1. There is a central and left paracentral disc protrusion compressing the thecal sac at L5-S1. There is impingement on the traversing S1 nerve roots bilaterally. 2. There is a broad-based posterior disc protrusion at L4-L5 extending into the inferior neural foramina bilaterally. There is no central stenosis. 07/13/2016: US TRANSVAGINAL- 1. Sonographically unremarkable bilateral ovaries. Specifically, the arterial as well as venous flow to both ovaries are well maintained. The possibility of intermittent torsion, as you know, cannot be excluded based on this imaging appearance alone. 2. Surgically absent uterus. 3. No evidence of any free fluid within the pelvis. 07/14/2016: US RETROPERITONEAL COMPLETE (RENAL)- Normal sonographic appearance of both kidneys. No renal calculi are seen. 07/14/2016: *EGD with biopsy per Dr. Brown- 1. Moderate nonerosive gastritis and suggestion of gastroparesis which was likely secondary to narcotics, s/p gastric biopsies- mild CAG/CFG without IM, HP -negative. 2. Grossly normal small bowel folds, s/p random biopsies- *normal villi. 3. Grossly normal esophagus and GE junction. 07/14/2016: EKG- NSR @ 70, 1st degree AVB (GA .216), normal axis, NSST diffusely.
[2016-07-20] MEDS ORDERED: REGLAN10 M1 PO (11:51)
--- NOTE | 2016-07-20 13:32 | PN- Att Addend ---
Attending Addendum Attending Brief Note Patient seen and examined. Resting comfortably watching a movie on her computer. She reports tolerating 3 meals yesterday. She reports tolerating breakfast this morning. She reports tolerating the prescribed oral medications. He continues complain of abdominal pain but states is controlled with the Dilaudid. I did discuss transitioning her to oral Dilaudid today which point she states that she would rather go home and continue on her Suboxone at home. She does no want to be transitioned to oral Dilaudid here in the hospital. She reports that she has Suboxone to take at home will be following up with her prescriber upon discharge. Vital Signs Date Time Temp Pulse Resp B/P Pulse O2 O2 Flow FiO2 Ox Delivery Rate 07/20 0818 98.5 74 20 100/78 97 Room Air 07/20 0005 98.0 75 20 106/78 96 07/19 1634 97.7 77 20 110/68 97 Gen. appearance: Well-developed, not in acute distress. Heart: S1-S2 regular Lungs: Good entry bilaterally, clear to auscultation Abdomen: Nondistended, soft, mild diffuse tenderness with rebound or guarding. Bowel sounds positive. Extremities: No pedal edema Laboratory Tests 07/20/16 0733: Anion Gap 12, Estimated GFR > 60, BUN/Creatinine Ratio 18.8, CBC w Diff NO MAN DIFF REQ, RBC 3.63 L, MCV 90.5, MCH 31.2 H, RDW 13.1, MPV 8.5, Gran % 56.7, Lymphocytes % 26.6, Monocytes % 10.2 H, Eosinophils % 5.7 H, Basophils % 0.8, Absolute Granulocytes 4.2, Absolute Lymphocytes 1.9, Absolute Monocytes 0.7 H, Absolute Eosinophils 0.4, Absolute Basophils 0.1, PUBS MCHC 34.5 Problems: 1. Acute on chronic abdominal pain 2. Intractable nausea vomiting; now improved. 3. History of Crohn's disease 4. Patient reports history of anxiety and depression. Plan: -Patient isn't able to be discharged home today. -She is to follow-up with her flower planter Dr. Cisco Adrian upon discharge. -She does not wish to be transitioned to oral Dilaudid for states she will begin Suboxone at home as she has done in the past. -She is requesting regular for antiemetic therapy at home. She has been advised to use as increase of promethazine which she has at home. -Case discussed with flower planter David Sheppard MD.
--- NOTE | 2016-07-21 07:57 | Discharge Summary ---
See Addendum Visit Information Visit Dates Admission Date: 07/10/16 Discharge Date: 07/19/16 Hospital Course Course Attending Physician: GINGER HONG M.D Primary Care Physician: JULIOCESAR VASQUEZ APRN Hospital Course: This is a 41-year-old female with past medical history of Crohn's disease( multiple flares currently on Remicade infusions every 6 weeks, last one was in June 18) , recurrent UTIs, endometriosis complicated by additions for which she underwent adhesion lysis and hysterectomy, came to emergency room with chief complaint of right-sided lower abdomen and back, diarrhea for a few days. Her vital signs on admission were temperature 98.2, pulse 107, respiratory rate 18, blood pressure 141/97, pulse ox 97 on room air. Admission labs were WBC count 9.1, hemoglobin 11.4, hematocrit 32.9, platelet count 267, sodium 138, potassium 4.3, BUN 12, creatinine 0.8, normal LFTs, amylase and lipase. CT lumbar spine showed central and left paracentral disc protrusion compressing the thecal sac at L5 and S1 and impingement on the traversing S1 nerve roots bilaterally. She was admitted on [facility] floor and monitor for following conditions: Right sided abdomen/back pain: Etiology remained unclear, likely due to underlying Crohn's disease versus C. difficile colitis(patient has history of recent recurrent antibiotic use) versus nephrolithiasis, cystitis, versus chronic pain syndrome Pain management with IV Dilaudid as patient has been very reluctant to take anything else stating that she is allergic, IV Phenergan for nausea and vomiting as needed, IV Reglan, and IV Benadryl along with ondansetron, anti-spasmodic bentyl 20 mg QID PRN. Endoscopy was done 07/14 did not reveal any acute findings. She does have some gastroparesis. Per GI, her symptoms are atypical of her prior Crohn's flares. Small bowel obstruction secondary to adhesions from her hysterectomy is also a possibility but unlikely given the atypical location of the pain and lack of obstructive symptoms. Vomiting is most likely related to the narcotics although it could be from underlying gastroparesis, GERD. Renal ultrasound did not show any acute findings. UA did not show any evidence of urinary tract infection, urine culture no growth, diet was advanced as tolerated , upon discharge patient was able to tolerate regular diet well. She is to follow-up with her special event assistant Dr. Cisco Adrian upon discharge. Back pain : CT scan showed evidence of central and left paracentral disc protrusion compressing the thecal sac at L5 and S1 and impingement on the traversing S1 nerve roots bilaterally. Per ortho, the CT scan finding is incidental and no intervention was warranted at this time but If she develops any lower extremity symptoms an MRI can be considered for further evaluation. DVT prophylaxis with Lovenox Patient is full code Allergies: Coded Allergies: tramadol (From ULTRAM) (Severe, HIVES, SOB 07/07/16) vancomycin (From VANCOCIN) (Severe, SOB, FACIAL SWELLING 07/07/16) Iodinated Contrast Media - Oral and (Intermediate, HIVES WITH OR WITHOUT PREMEDICATION - CAN NOT TAKE PERIOD 07/10/16) Sulfa (Sulfonamide Antibiotics) (Intermediate, HIVES 07/07/16) morphine (Intermediate, HIVES, RASH 07/07/16) adhesive (RASH 07/10/16) oxycodone (RASH, SOB 07/10/16) Disposition Summary Disposition Principal Diagnosis: Right sided abdomen/back pain Additional Diagnosis: Crohn's disease, Discharge Disposition: home or self care Discharge Instructions General Discharge Information Code Status: Full Code Patient's Diet: As tolerated regular Patient's Activity: As tolerated Follow-Up Instructions/Appts: Patient advised to follow-up with primary care physician upon discharge. Medications at Discharge Discharge Medications: Continue taking these medications: Promethazine HCl (Promethazine HCl) 25 MG TABLET 1 Tablet ORAL EVERY SIX HOURS NEEDED as needed for NAUSEA/VOMITING Qty = 30 Comments: NOT GIVEN IN HOSPITAL Buprenorphine HCl/Naloxone HCl (Suboxone 2 MG-0.5 MG Sl Film) 2 MG-0.5 MG FILM 1 Strip SUBLINGUAL 4 TIMES A DAY as needed for CHRONIC PAIN Qty = 120 Comments: PER PT CAN TAKE UP TO MAX OF 4 FILMS A DAY NOT GIVEN IN HOSPITAL Hydromorphone HCl (Hydromorphone HCl) 4 MG TABLET 1 Tablet ORAL EVERY 6 HOURS NEEDED as needed for PAIN Qty = 30 Comments: PER PT WILL START WITH 2MG AND THEN IF PAIN IS NOT RELIEVED WILL TAKE 4MG IV DILAUDID GIVEN AT 07/20/16 AT 1025 AM Hydromorphone HCl (Hydromorphone HCl) 2 MG TABLET 1 Tablet ORAL EVERY 6 HOURS NEEDED as needed for PAIN Qty = 30 Comments: PER PT STARTS OUT WITH 2MG AND IF PAIN IS NOT RELIEVED WILL TAKE 4MG Hydroxyzine HCl (Hydroxyzine HCl) 25 MG TABLET 1 Tablet ORAL THREE TIMES DAILY as needed for ITCHING Qty = 30 Comments: PER PT TAKES THIS OR BENADRYL NOT GIVEN IN HOSPITAL Alprazolam (Alprazolam) 0.5 MG TABLET 1 Tablet ORAL THREE TIMES A DAY NEEDED as needed for ANXIETY Qty = 100 Comments: NOT GIVEN IN HOSPITAL Escitalopram Oxalate (Escitalopram Oxalate) 10 MG TABLET 1 Tablet ORAL Every night Qty = 90 Comments: PER PT Last Taken: 07/19/16 Time: 2128 Phenazopyridine HCl (Phenazopyridine HCl) 200 MG TABLET 1 Tablet ORAL THREE TIMES DAILY Qty = 30 Instructions: after food Comments: NOT GIVEN IN HOSPITAL Lidocaine (Lidoderm) 5 % ADH..PATCH 1 Patch On the skin DAILY Instructions: may wear up to 12 hours Comments: NOT GIVEN IN HOSPITAL Ondansetron (Zofran Odt) 4 MG TAB.RAPDIS 1 Tablet SUBLINGUAL THREE TIMES DAILY Qty = 10 Comments: PER PT INS DID NOT COVER, 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 Last Taken: 07/20/16 Time: 0217 Diphenhydramine HCl (Benadryl) 25 MG CAPSULE 1 Capsule ORAL as needed for NASUEA/ITCHING Comments: PER PT TAKES THIS OR HYDROXYZINE Last Taken: 07/20/16 Time: 1152 Mesalamine (Canasa) 1,000 MG SUPP.RECT 1 Suppository RECTAL as needed for RECTAL Qty = 30 Comments: PER PT NOT GIVEN IN HOSPITAL Infliximab (Remicade) (Unknown Strength) VIAL Unknown Dose INTRAVEN Comments: PER PT NOT GIVEN IN HOSPITAL Multivitamin (Daily Value) 1 EACH TABLET 1 Tablet ORAL DAILY Comments: PER PT NOT GIVEN IN HOSPITAL Start taking the following new medications: Metoclopramide HCl (Reglan) 10 MG TABLET 1 Tablet ORAL THREE TIMES DAILY as needed for Nausea Qty = 30 No Refills Instructions: 30 minutes before meals and bedtime Comments: Last Taken: 07/20/16 Time: 1152 Copies To: GINGER HONG M.D; JULIOCESAR VASQUEZ APRN Attending MD Review Statement Documenting Attending: GINGER HONG M.D Other Findings: Reviewed.
== END 2016-07-20 14:40 | DRG 392 ==
LOC: ERH 11:04 → 2NB 15:04 → ERHI 15:04 → 2NB 17:44
PROVIDERS: Dermatology; Internal Medicine; Physician Assistant; Student in an Organized Health Care Education/Training Program; ADMIT Internal Medicine
PROC: 0DB68ZX Excision of Stomach, Via Natural or Artificial Opening Endoscopic, Diagnostic (ICD-10-PCS; principal; 2016-07-14)
PROC: 0DB98ZX Excision of Duodenum, Via Natural or Artificial Opening Endoscopic, Diagnostic (ICD-10-PCS; principal; 2016-07-14)
DX: R10.9 Unspecified abdominal pain (principal); K50.90 Crohn's disease, unspecified, without complications; M54.9 Dorsalgia, unspecified; K29.70 Gastritis, unspecified, without bleeding; K31.84 Gastroparesis; M51.17 Intervertebral disc disorders with radiculopathy, lumbosacral region
CPT/HCPCS: 2NBSP; 36415; 76775; 81001; 81025; 82436; 87045; 87086; 88305; 88312; 93005; 93010; 96374; 96375; 96376; 99233; J1170; J1200; J1642; J1650; J2405; J2550; J2765; J3101; J3250